=== PATIENT | female | born 1955 | race Caucasian/White ===

== ENCOUNTER 2019-11-25 10:20 | Outpatient (REF) | payer MEDICARE, SELFPAY ==
[2019-11-25 11:08] LABS: Alanine Aminotransferase 20 U/L (0-31); Alkaline Phosphatase 126 U/L (39-117); Anion Gap 12 (12-20); Aspartate Amino Transferase 16 U/L (5-31); Bilirubin Total 0.6 mg/dL (0.0-1.0); Blood Urea Nitrogen 15 mg/dL (9-16); Calcium 8.9 mg/dL (8.4-10.2); Carbon Dioxide 25 mmol/L (22-29); Chloride 109 mmol/L (96-108); Estimated Glomerular Filt Rate > 60; Glucose Random 198 mg/dL (60-115); Potassium 4.2 mmol/l (3.3-5.1); Sodium 142 mmol/L (135-145); Total Protein 6.3 g/dL (6.5-8.0)
== END 2019-11-25 10:21 | disposition home or self-care (01) ==
LOC: HO.LAB 10:20
PROVIDERS: PCP Internal Medicine; Visit Provider Physician Assistant
DX: I10 Essential (primary) hypertension (principal)
CPT/HCPCS: 80053

== ENCOUNTER 2019-11-26 08:46 | Outpatient (REF) | payer MEDICARE, SELFPAY ==
--- NOTE | 2019-11-26 08:56 | CT_ITS ---
EXAMINATION: CT CHEST WITH CONTRAST CLINICAL INFORMATION: Pulmonary nodules. COMPARISON: Previous chest x-ray June 2011 and abdominal and pelvic CT scan September 2018 and April 2009 TECHNIQUE: Multidetector volumetric CT imaging of the chest was obtained after the administration of 65 mL of Omnipaque 350 intravenous contrast without immediate adverse reactions. Axial MIP volume rendering provided. Sagittal and coronal reformatted images were obtained. This CT examination was performed using dose optimization techniques as appropriate, variously including the following: *Automated exposure control *Adjustment of mA and/or kV according to patient size (this includes techniques or standardized protocols for targeted exams where dose is matched to indication/reason for exam; i.e. extremities or head) *Use of iterative reconstruction technique DLP: 221 mGy-cm FINDINGS: LUNGS: There are innumerable small bilateral pulmonary nodules. The largest right pulmonary nodule is a 3 mm peripheral or subpleural nodule axial image 159 series 5. The left largest pulmonary nodule is a heterogeneous or semisolid left upper lobe nodule measuring 3 x 4 mm axial image 221 series 5. Nodules are greatest in the upper lobes. This may represent respiratory bronchiolitis related to smoking, hypersensitivity pneumonitis or infection. MEDIASTINUM: There are small mediastinal lymph nodes. No enlarged lymph nodes are seen. The heart does not appear enlarged. There is mild coronary artery calcification. There is no pericardial effusion. PLEURA: There is no pleural effusion. No pleural mass or thickening. AXILLA: No chest wall mass or enlarged axillary lymph nodes are seen. UPPER ABDOMEN: There are multiple small high attenuation or enhancing subcentimeter foci in the spleen. The largest measures 9 mm axial image 62 series 3. This appearance is somewhat atypical for heterogeneous splenic perfusion during arterial phase enhancement and is questionable for multiple focal lesions. No focal splenic lesion is appreciated on previous abdominal pelvic CT scan. OSSEOUS STRUCTURES: There are degenerative changes of the spine. IMPRESSION: Innumerable small pulmonary nodules or micronodules, largest measuring 3 x 4 mm in the left upper lobe. This may represent respiratory bronchiolitis related to smoking, hypersensitivity pneumonitis or infection. Small mediastinal lymph nodes. No enlarged lymph nodes seen. Mild coronary artery calcification. Question multiple small enhancing subcentimeter splenic lesions. Followup ultrasound of the spleen recommended.
== END 2019-11-26 08:47 | disposition home or self-care (01) ==
LOC: HO.CT 08:46
PROVIDERS: PCP Internal Medicine; Visit Provider Physician Assistant
DX: R91.1 Solitary pulmonary nodule (principal); Z12.2 Encounter for screening for malignant neoplasm of respiratory organs; Z72.0 Tobacco use
CPT/HCPCS: 71260

== ENCOUNTER 2019-12-13 13:08 | Outpatient (REF) | payer MEDICARE, SELFPAY ==
[2019-12-13 14:36] LABS: Anion Gap 13 (12-20); Blood Urea Nitrogen 14 mg/dL (9-16); Carbon Dioxide 29 mmol/L (22-29); Chloride 103 mmol/L (96-108); Estimated Glomerular Filt Rate > 60; Glucose Random 130 mg/dL (60-115); Potassium 4.2 mmol/l (3.3-5.1); Sodium 141 mmol/L (135-145)
== END 2019-12-13 13:09 | disposition home or self-care (01) ==
LOC: HO.LAB 13:08
PROVIDERS: PCP Internal Medicine; Visit Provider Nurse Practitioner Acute Care
DX: I10 Essential (primary) hypertension (principal)
CPT/HCPCS: 80048

== ENCOUNTER 2019-12-17 10:05 | Outpatient (REF) | payer MEDICARE, SELFPAY ==
--- NOTE | 2019-12-17 10:20 | US_ITS ---
EXAMINATION: US ABDOMEN COMPLETE CLINICAL INFORMATION: Splenic mass/lesion seen on CT chest dated 11/26/2019. COMPARISON: CT abdomen and pelvis without contrast dated 09/27/2018. Ultrasound abdomen complete dated 12/30/2005. TECHNIQUE: Real-time imaging of the abdominal viscera. FINDINGS: PANCREAS: Normal. ABDOMINAL AORTA: The proximal, mid, and distal segments are normal in caliber. INFERIOR VENA CAVA: Visualized portions are normal. LIVER: The liver is increased in echogenicity. The liver is normal in size. The liver contour is normal. No focal hepatic lesion or intrahepatic biliary duct dilatation seen. GALLBLADDER: There is a nonmobile echogenic area along the inner gallbladder wall suspicious for adenomyomatosis versus folded inner gallbladder wall. The gallbladder is physiologically distended. Multiple mobile gallstones are present. No evidence of gallbladder wall thickening or pericholecystic fluid. COMMON BILE DUCT: Normal in caliber measuring 0.4 cm in diameter. RIGHT KIDNEY: There are 2 anechoic cysts seen. A lower pole cyst measuring 2.7 x 3.1 x 2.8 cm and a midpole cyst measuring 1.8 x 1.7 x 1.8 cm. No hydronephrosis or renal calculi. The kidney measures 13.4 cm in maximum dimension. LEFT KIDNEY: There is an anechoic cyst in the midpole measuring 0.8 x 0.7 x 0.8 cm. No hydronephrosis or renal calculi. The kidney measures 11.0 cm in maximum dimension. SPLEEN: There are multiple hypoechoic lesions seen in the spleen; the largest one measuring 1.0 x 1.0 x 1.0 cm. A few high attenuation small lesions were seen in the spleen on the previous CT abdomen and pelvis exam. The spleen measures 10.9 cm in maximum dimension. FREE FLUID: None. US/US abdomen complete IMPRESSION: 1. Gallstones. Likely adenomyomatosis. 2. Two right renal cysts and a solitary cyst, left kidney. 3. A few hypoechoic lesions in the spleen. These correspond to hyperattenuating lesions in the spleen on recent CT.
== END 2019-12-17 10:06 | disposition home or self-care (01) ==
LOC: HO.US 10:05
PROVIDERS: PCP Internal Medicine; Visit Provider Physician Assistant
DX: D73.89 Other diseases of spleen (principal)
CPT/HCPCS: 76700

== ENCOUNTER 2020-05-13 13:20 | Outpatient (REF) | payer MEDICARE, SELFPAY ==
--- NOTE | ~2020-05-13 | US_ITS ---
EXAMINATION: US DIAGNOSTIC ULTRASOUND BREAST, RIGHT CLINICAL INFORMATION: Right breast lump. COMPARISON: Mammography of same day. TECHNIQUE: Ultrasound of the breast is performed with real-time henry scale imaging and color Doppler. FINDINGS: Targeted right breast ultrasound to the seventh to 10:00 position of the right breast did not demonstrate any abnormal cystic or solid masses. No region of abnormal distal sound shadowing appreciated. Results are discussed with the patient at time of visit. US/US breast RT limited IMPRESSION: There are no significant changes from prior study. No mammographic or ultrasound findings to suggest malignancy. ASSESSMENT: BI-RADS 2: Benign RECOMMENDATION: Routine annual mammography screening due in 12 months.
--- NOTE | ~2020-05-13 | MM_ITS ---
EXAMINATION: MM DIAGNOSTIC DIGITAL MAMMOGRAPHY, BILATERAL TARGETED RIGHT BREAST ULTRASOUND CLINICAL INFORMATION: Right breast pain and lump upper outer quadrant. The lifetime risk of breast cancer based on the Tyrer-Cuzick Model is 5.5%. COMPARISON: Mammography: 02/07/2019 and studies dating back to 05/13/2011. TECHNIQUE: Digital mammography is performed in craniocaudal and mediolateral oblique views along with computer-aided detection (CAD). Additional right breast craniocaudal and 90 degree mediolateral spot magnification views performed. Targeted right breast ultrasound. FINDINGS: There are scattered areas of fibroglandular density (ACR BI-RADS breast composition Category b). There is stable appearance of the left breast without new abnormal dominant mass or new suspicious grouping of microcalcifications. Within the right breast there are again noted to be some stable circumscribed densities one in the subareolar region containing some calcifications that layer on spot magnification 90 degree mediolateral view. There appears to be question of some calcifications on mediolateral oblique image only central aspect, however, spot magnification films do not demonstrate these to be persistent. Stable postsurgical change noted within the right breast. Targeted right breast ultrasound to the 7-10 o'clock position of the right breast did not demonstrate any abnormal cystic or solid masses. No region of abnormal distal sound shadowing appreciated. Results are discussed with the patient at time of visit. MM/MM tomosynthesis diagnostic BI IMPRESSION: There are no significant changes from prior study. No mammographic or ultrasound findings to suggest malignancy. ASSESSMENT: BI-RADS 2: Benign. RECOMMENDATION: Routine annual mammography screening due in 12 months. This patient's information was entered into a reminder system with a target due date for their next mammogram.
== END 2020-05-13 13:21 | disposition home or self-care (01) ==
LOC: HO.MAMMO 13:20
PROVIDERS: Visit Provider Internal Medicine
DX: N64.4 Mastodynia (principal); N63.11 Unspecified lump in the right breast, upper outer quadrant
CPT/HCPCS: 76642; 77062; 77066

== ENCOUNTER 2020-06-22 12:54 | Outpatient (REF) | payer MEDICARE, SELFPAY ==
[2020-06-22 13:33] LABS: MANUAL DIFF FLAG NO
[2020-06-22 13:53] LABS: Basophils Absolute Auto 0.1 X10*3/uL (0.0-0.2); Basophils Percent Auto 1.1 % (0-2); Eosinophils Absolute Auto 0.2 X10*3/uL (0.0-0.4); Eosinophils Percent Auto 2.2 % (0-4); Hematocrit 39.3 % (37-47); Hemoglobin 12.1 g/dl (12.0-16.0); Imm Gran Abs Auto 0.06 X10*3/uL (0.00-0.03); Imm Gran Pct Auto 0.7 % (0.0-0.4); Lymphocytes Percent Auto 23.3 % (20-40); Mean Corpuscular HGB Conc 30.8 g/dl (31.0-35.0); Mean Corpuscular Hemoglobin 28.1 pg (27.0-33.0); Mean Corpuscular Volume 91.4 fL (80-98); Mean Platelet Volume 10.9 fL (9.4-12.3); Monocytes Absolute Auto 0.5 X10*3/uL (0.1-1.2); Monocytes Percent Auto 6.3 % (2-11); Neutrophils Absolute Auto 5.7 X10*3/uL (2.0-8.3); Neutrophils Percent Auto 66.4 % (45-73); Platelet Count 289 X10*3/uL (160-400); Red Cell Distribution Width 13.4 % (11.0-16.0); White Blood Count 8.6 X10*3/uL (4.8-10.8)
[2020-06-22 13:54] LABS: Estimated Average Glucose 123 mg/dL; Hemoglobin A1c % 5.9 %
[2020-06-22 14:03] LABS: Alanine Aminotransferase 21 U/L (0-31); Albumin Level 4.1 g/dL (3.5-5.0); Alkaline Phosphatase 114 U/L (39-117); Anion Gap 14 (12-20); Aspartate Amino Transferase 18 U/L (5-31); Bilirubin Total 0.6 mg/dL (0.0-1.0); Blood Urea Nitrogen 14 mg/dL (9-16); Calcium 9.2 mg/dL (8.4-10.2); Carbon Dioxide 26 mmol/L (22-29); Chloride 104 mmol/L (96-108); Cholesterol 188 mg/dL; Estimated Glomerular Filt Rate > 60; Glucose Random 127 mg/dL (60-115); HDL Cholesterol 40 mg/dL; LDL Cholesterol Calculated 117 mg/dl; Potassium 4.4 mmol/L (3.3-5.1); Sodium 140 mmol/L (135-145); Total Protein 6.6 g/dL (6.5-8.0); Triglycerides 159 mg/dL
== END 2020-06-22 12:55 | disposition home or self-care (01) ==
LOC: HO.LAB 12:54
PROVIDERS: PCP Internal Medicine; Visit Provider Physician Assistant
DX: I10 Essential (primary) hypertension (principal); E78.00 Pure hypercholesterolemia, unspecified; R73.01 Impaired fasting glucose
CPT/HCPCS: 36415; 80053; 80061; 83036; 85025

== ENCOUNTER → 2020-07-03 10:56 | Outpatient (BNVA) | payer MEDICARE, SELFPAY | PROVIDERS: PCP Internal Medicine; Visit Provider Physician Assistant | DX: S92.352A Displaced fracture of fifth metatarsal bone, left foot, initial encounter for closed fracture (principal); M18.12 Unilateral primary osteoarthritis of first carpometacarpal joint, left hand | CPT/HCPCS: 99202 ==

== ENCOUNTER 2020-08-03 08:00 | Outpatient (REF) | payer MEDICARE, SELFPAY ==
--- NOTE | ~2020-08-03 | XR_ITS ---
EXAMINATION: XR FOOT, LEFT CLINICAL INFORMATION: Follow-up fracture 5th metatarsal. COMPARISON: None. TECHNIQUE: AP, lateral, and oblique views of the left foot. FINDINGS: There is old fracture base of 5th metatarsal. No additional fractures seen. The ankle mortise and subtalar joints are normal. XR/XR foot LT min 3V IMPRESSION: Old nondisplaced fracture base of 5th metatarsal. No acute new fracture seen.
== END 2020-08-03 08:01 | disposition home or self-care (01) ==
LOC: HO.HOSX 08:00
PROVIDERS: Visit Provider Physician Assistant
DX: S92.352A Displaced fracture of fifth metatarsal bone, left foot, initial encounter for closed fracture (principal)
CPT/HCPCS: 73630; 99212

== ENCOUNTER 2020-12-01 11:24 | Outpatient (REF) | payer MEDICARE, SELFPAY ==
[2020-12-01 12:42] LABS: MANUAL DIFF FLAG NO
[2020-12-01 12:57] LABS: Basophils Absolute Auto 0.1 X10*3/uL (0.0-0.2); Basophils Percent Auto 0.9 % (0-2); Eosinophils Absolute Auto 0.2 X10*3/uL (0.0-0.4); Hematocrit 37.6 % (37-47); Hemoglobin 11.7 g/dl (12.0-16.0); Imm Gran Abs Auto 0.04 X10*3/uL (0.00-0.03); Imm Gran Pct Auto 0.6 % (0.0-0.4); Lymphocytes Absolute Auto 1.7 X10*3/uL (1.2-4.9); Lymphocytes Percent Auto 25.7 % (20-40); Mean Corpuscular HGB Conc 31.1 g/dl (31.0-35.0); Mean Corpuscular Hemoglobin 27.3 pg (27.0-33.0); Mean Corpuscular Volume 87.6 fL (80-98); Monocytes Absolute Auto 0.4 X10*3/uL (0.1-1.2); Monocytes Percent Auto 5.3 % (2-11); Neutrophils Absolute Auto 4.4 X10*3/uL (2.0-8.3); Neutrophils Percent Auto 64.5 % (45-73); Platelet Count 308 X10*3/uL (160-400); Red Blood Count 4.29 X10*6/uL (4.20-5.50); White Blood Count 6.8 X10*3/uL (4.8-10.8)
[2020-12-01 13:13] LABS: Alanine Aminotransferase 17 U/L (0-31); Albumin Level 4.1 g/dL (3.5-5.0); Alkaline Phosphatase 121 U/L (39-117); Anion Gap 15 (12-20); Aspartate Amino Transferase 16 U/L (5-31); Bilirubin Total 0.6 mg/dL (0.0-1.0); Blood Urea Nitrogen 13 mg/dL (9-16); Calcium 8.9 mg/dL (8.4-10.2); Carbon Dioxide 24 mmol/L (22-29); Chloride 106 mmol/L (96-108); Cholesterol 167 mg/dL; Estimated Average Glucose 120 mg/dL; Estimated Glomerular Filt Rate > 60; Glucose Fasting 130 mg/dL (60-99); HDL Cholesterol 34 mg/dL; Hemoglobin A1c % 5.8 %; LDL Cholesterol Calculated 98 mg/dl; Potassium 3.9 mmol/L (3.3-5.1); Sodium 141 mmol/L (135-145); Total Protein 6.6 g/dL (6.5-8.0); Triglycerides 175 mg/dL
[2020-12-01 13:34] LABS: Free T4 (Free Thyroxine) 0.95 ng/dL (0.71-1.85); Thyroid Stimulating Hormone 1.19 uIU/mL (0.32-4.0)
== END 2020-12-01 11:25 | disposition home or self-care (01) ==
LOC: HO.MANLDS 11:24
PROVIDERS: PCP Physician Assistant; Visit Provider Physician Assistant
DX: Z00.00 Encounter for general adult medical examination without abnormal findings (principal); R63.5 Abnormal weight gain
CPT/HCPCS: 36415; 80053; 80061; 83036; 84439; 84443; 85025

== ENCOUNTER 2020-12-22 07:26 | Outpatient (REF) | payer MEDICARE, SELFPAY ==
--- NOTE | ~2020-12-22 | XR_ITS ---
EXAMINATION: XR KNEE, RIGHT XR KNEE STANDING BILATERAL CLINICAL INFORMATION: Knee pain COMPARISON: None TECHNIQUE: AP standing view both knees Right knee, sunrise and lateral views FINDINGS: AP STANDING VIEW BOTH KNEES At the right knee, there is mild narrowing of medial tibiofemoral joint space and osteophytes at noted at the medial and lateral tibiofemoral compartments. At the left knee, there is mild narrowing of medial tibiofemoral joint space and osteophyte formation. RIGHT KNEE, SUNRISE AND LATERAL VIEWS Patella is well-positioned in the trochlear groove. There are marginal osteophytes of the mildly degenerated patellofemoral compartment. No knee joint effusion. XR/XR knee RT 2V IMPRESSION: * Mild tricompartmental osteoarthritis of the right knee. * Mild osteoarthritis of the medial tibiofemoral compartment of the left knee.
--- NOTE | ~2020-12-22 | XR_ITS ---
EXAMINATION: XR KNEE, RIGHT XR KNEE STANDING BILATERAL CLINICAL INFORMATION: Knee pain COMPARISON: None TECHNIQUE: AP standing view both knees Right knee, sunrise and lateral views FINDINGS: AP STANDING VIEW BOTH KNEES At the right knee, there is mild narrowing of medial tibiofemoral joint space and osteophytes at noted at the medial and lateral tibiofemoral compartments. At the left knee, there is mild narrowing of medial tibiofemoral joint space and osteophyte formation. RIGHT KNEE, SUNRISE AND LATERAL VIEWS Patella is well-positioned in the trochlear groove. There are marginal osteophytes of the mildly degenerated patellofemoral compartment. No knee joint effusion. XR/XR knee standing BI IMPRESSION: * Mild tricompartmental osteoarthritis of the right knee. * Mild osteoarthritis of the medial tibiofemoral compartment of the left knee.
== END 2020-12-22 07:27 | disposition home or self-care (01) ==
LOC: HO.HOSX 07:26
PROVIDERS: Visit Provider Physician Assistant
DX: M17.11 Unilateral primary osteoarthritis, right knee (principal)
CPT/HCPCS: 73560; 73565; 99212

== ENCOUNTER 2020-12-29 13:26 | Outpatient (REF) | payer MEDICARE, SELFPAY ==
--- NOTE | ~2020-12-29 | CT_ITS ---
EXAMINATION: CT CHEST WITHOUT CONTRAST CLINICAL INFORMATION: Pulmonary nodules. Follow-up. COMPARISON: CT chest with contrast 11/26/2019 TECHNIQUE: Multidetector volumetric CT imaging of the chest was done. Axial MIP volume rendering provided. Sagittal and coronal reformatted images were obtained. This CT examination was performed using dose optimization techniques as appropriate, variously including the following: *Automated exposure control *Adjustment of mA and/or kV according to patient size (this includes techniques or standardized protocols for targeted exams where dose is matched to indication/reason for exam; i.e. extremities or head) *Use of iterative reconstruction technique DLP: 263 mGy-cm FINDINGS: NCR OPERATOR: Well expanded lungs without acute process. LUNGS: The lungs are well expanded with numerous bilateral small pulmonary nodules. Largest subpleural nodule right upper lobe measures 3 mm axial image 81/5, largest left upper lobe subpleural nodule measures 2 mm axial image 139/5. These nodules are stable. A 3 mm nodule seen in the left major fissure axial image 226/5 likely intrafissural lymph node, stable. Focal atelectatic changes are seen in the right middle lobe. MEDIASTINUM: The left thyroid lobe is larger than the right. The central trachea and the bronchi are widely patent. There is atherosclerotic calcification of the thoracic arch. There are multiple small precarinal lymph nodes. Heart size and the great vessels are normal caliber. There is no pericardial effusion. PLEURA: There is no pleural effusion. No pleural mass or thickening. AXILLA: There are small shotty lymph nodes in the axilla. The chest wall is unremarkable. UPPER ABDOMEN: Visualized liver, spleen, pancreas, and bilateral adrenal glands are unremarkable. OSSEOUS STRUCTURES: There is no lytic or sclerotic process. There is mild spondylosis throughout the dorsal spine. CT/CT chest wo con IMPRESSION: Bilateral pulmonary nodules are stable. No new nodules seen. Stable small mediastinal and shotty bilateral axillary lymph nodes. Previously seen enhancing splenic lesions are not visualized on this noncontrast study.
== END 2020-12-29 13:27 | disposition home or self-care (01) ==
LOC: HO.CT 13:26
PROVIDERS: PCP Physician Assistant; Visit Provider Physician Assistant
DX: R91.8 Other nonspecific abnormal finding of lung field (principal)
CPT/HCPCS: 71250

== ENCOUNTER 2021-05-25 11:14 | Outpatient (REF) | payer MEDICARE, SELFPAY ==
--- NOTE | ~2021-05-25 | MM_ITS ---
EXAMINATION: MM SCREENING DIGITAL BREAST TOMOSYNTHESIS, BILATERAL CLINICAL INFORMATION: Screening. Asymptomatic. The lifetime risk of breast cancer based on the Tyrer-Cuzick Model is 5%. COMPARISON: Mammography: 05/13/2020, 02/07/2019, 12/27/2017 TECHNIQUE: Digital breast tomosynthesis is performed in both the craniocaudal and mediolateral oblique views along with computer-aided detection (CAD). Synthesized 2D images are generated from the tomosynthesis. Additional bilateral MLO views are provided. FINDINGS: There are scattered areas of fibroglandular density (ACR BI-RADS breast composition Category b). There are no significant masses, abnormal calcifications, or other abnormalities. There is fine fibronodular parenchymal pattern similar to prior exams. No developing density. No significant changes. MM/MM tomosynthesis screening BI IMPRESSION: No mammographic evidence of malignancy. ASSESSMENT: BI-RADS 2: Benign RECOMMENDATION: Routine annual mammography screening. This patient's information was entered into a reminder system with a target due date for their next mammogram.
== END 2021-05-25 11:15 | disposition home or self-care (01) ==
LOC: HO.MAMMO 11:14
PROVIDERS: PCP Internal Medicine; Visit Provider Physician Assistant
DX: Z12.31 Encounter for screening mammogram for malignant neoplasm of breast (principal)
CPT/HCPCS: 77063; 77067

== ENCOUNTER 2021-12-13 13:20 | Outpatient (REF) | payer MEDICARE, SELFPAY ==
--- NOTE | ~2021-12-13 | CT_ITS ---
EXAMINATION: CT CHEST WITHOUT CONTRAST CLINICAL INFORMATION: Smoking history. Follow-up pulmonary nodules. COMPARISON: Previous chest CT most recent December 2020 TECHNIQUE: Multidetector volumetric CT imaging of the chest was done. Axial MIP volume rendering provided. Sagittal and coronal reformatted images were obtained. This CT examination was performed using dose optimization techniques as appropriate, variously including the following: *Automated exposure control *Adjustment of mA and/or kV according to patient size (this includes techniques or standardized protocols for targeted exams where dose is matched to indication/reason for exam; i.e. extremities or head) *Use of iterative reconstruction technique DLP: 282 mGy-cm FINDINGS: LUNGS: The small pulmonary nodules are stable. Largest pulmonary nodule is a 3 mm left upper lobe pulmonary nodule axial image 200 series 7. No new pulmonary nodule. No endobronchial or endotracheal lesion. MEDIASTINUM: The mediastinum is normal. CORONARY ARTERY CALCIFICATION: Mild coronary artery calcification. Atherosclerotic disease of the thoracic aorta with calcification. The thoracic aorta is normal in caliber. PLEURA: There is no pleural effusion. No pleural mass or thickening. AXILLA: No lymphadenopathy. UPPER ABDOMEN: Unremarkable. OSSEOUS STRUCTURES: Degenerative changes of the spine. CT/CT chest wo IV con IMPRESSION: Stable small pulmonary nodules. Mild coronary artery calcification. Fleischner guidelines were followed.
== END 2021-12-13 13:21 | disposition home or self-care (01) ==
LOC: HO.CT 13:20
PROVIDERS: PCP Internal Medicine; Visit Provider Physician Assistant
DX: R91.1 Solitary pulmonary nodule (principal); Z87.891 Personal history of nicotine dependence
CPT/HCPCS: 71250

== ENCOUNTER 2022-06-07 13:35 | Outpatient (REF) | payer MEDICARE, SELFPAY ==
--- NOTE | ~2022-06-07 | MM_ITS ---
EXAMINATION: MM SCREENING DIGITAL BREAST TOMOSYNTHESIS, BILATERAL CLINICAL INFORMATION: Screening. Asymptomatic. The lifetime risk of breast cancer based on the Tyrer-Cuzick Model is 5%. COMPARISON: Mammography: May 25, 2021 and studies dating back to November 02, 2015 TECHNIQUE: Digital breast tomosynthesis is performed in both the craniocaudal and mediolateral oblique views along with computer-aided detection (CAD). Synthesized 2D images are generated from the tomosynthesis. FINDINGS: There are scattered areas of fibroglandular density (ACR BI-RADS breast composition Category b). There are no new significant masses, abnormal calcifications, or other abnormalities. Right breast calcifications again seen as well as circumscribed density about the superior lateral aspect. MM/MM tomosynthesis screening BI IMPRESSION: No significant changes from prior exam. ASSESSMENT: BI-RADS 2: Benign RECOMMENDATION: Routine annual mammography screening. This patient's information was entered into a reminder system with a target due date for their next mammogram.
== END 2022-06-07 13:36 | disposition home or self-care (01) ==
LOC: HO.MAMMO 13:35
PROVIDERS: PCP Internal Medicine; Visit Provider Physician Assistant
DX: Z12.31 Encounter for screening mammogram for malignant neoplasm of breast (principal)
CPT/HCPCS: 77063; 77067

== ENCOUNTER 2022-06-23 14:21 | Observation (INO) | payer MEDICARE, SELFPAY ==
[2022-06-23] VITALS (10 sets, daily range): BP systolic 98–140; BP diastolic 40–63; PULSE 58–72; RESP 14–20; TEMP 35.8–37.7; O2SAT 96–99; BMI 37.5; BMI 37.7
--- NOTE | ~2022-06-23 | XR_ITS ---
EXAMINATION: XR CHEST CLINICAL INFORMATION: Shortness of breath COMPARISON: 07/09/2011 TECHNIQUE: 2 views of the chest were obtained. FINDINGS: Some mild left mid to lower lung opacity and mild left mid to lower lung right opacity compared to previous. These could be subtle areas of infiltrate. There is no failure here. There is no effusion. There is some mild cephalization of the vasculature but the cardiac silhouette does not appear enlarged. Hilar structures are slightly more prominent than previous. There is no effusion or pneumothorax. XR/XR chest 2V IMPRESSION: Some mild bilateral mid to lower lung opacities could represent areas of early infiltrate. Trace effusions cannot be excluded. Cardiac silhouette is not appear pathologically enlarged but is slightly more prominent than previous. This could be due to projection. The hilar structures are also mildly prominent. This could be reactive. I would recommend follow-up study. No evidence for failure
--- NOTE | ~2022-06-23 | CT_ITS ---
EXAMINATION: CT CHEST WITHOUT CONTRAST CLINICAL INFORMATION: Follow-up abnormal chest x-ray. Prominent usha and bilateral lower lung opacities. COMPARISON: Previous chest x-ray from yesterday and chest CT most recent November 2021 TECHNIQUE: Multidetector volumetric CT imaging of the chest was done. Axial MIP volume rendering provided. Sagittal and coronal reformatted images were obtained. This CT examination was performed using dose optimization techniques as appropriate, variously including the following: *Automated exposure control *Adjustment of mA and/or kV according to patient size (this includes techniques or standardized protocols for targeted exams where dose is matched to indication/reason for exam; i.e. extremities or head) *Use of iterative reconstruction technique DLP: 281 mGy-cm FINDINGS: TRAINING AND QUALITY MANAGER: Unremarkable LUNGS: The small bilateral predominantly upper lobe pulmonary nodules are stable. Largest nodules measure 3 mm. The lungs are otherwise clear. No evidence of pneumonia. MEDIASTINUM: Atherosclerotic disease. Normal heart size. Normal caliber thoracic aorta. Normal caliber pulmonary arteries. Small mediastinal lymph nodes. No enlarged lymph nodes. No pericardial effusion. CORONARY ARTERY CALCIFICATION: Mild PLEURA: There is no pleural effusion. No pleural mass or thickening. AXILLA: No lymphadenopathy. UPPER ABDOMEN: Excreted contrast in the collecting systems of the kidneys. Precontrast and gallbladder. OSSEOUS STRUCTURES: Degenerative changes of the spine. CT/CT chest wo IV con IMPRESSION: No evidence for acute disease in the chest. Stable small pulmonary nodules. Fleischner guidelines were followed.
--- NOTE | ~2022-06-23 | CT_ITS ---
EXAMINATION: CT ABDOMEN AND PELVIS WITH CONTRAST CLINICAL INFORMATION: Microcytic anemia and weight loss.. COMPARISON: None available. TECHNIQUE: Multidetector volumetric images were obtained from the superior aspect of the liver through the pubic symphysis following administration 85 mL of Omnipaque 350 intravenous contrast. Sagittal and coronal reformatted images were obtained on the technologist's workstation. Oral contrast: No This CT examination was performed using dose optimization techniques as appropriate, variously including the following: *Automated exposure control *Adjustment of mA and/or kV according to patient size (this includes techniques or standardized protocols for targeted exams where dose is matched to indication/reason for exam; i.e. extremities or head) *Use of iterative reconstruction technique DLP: 986 mGy-cm FINDINGS: LUNG BASES: The lung bases are clear. The heart size is normal. There is a small hiatal hernia. LIVER, GALLBLADDER, AND BILIARY TREE: The liver is normal in size, shape, and attenuation. No focal hepatic lesion or biliary ductal dilatation is present. There are small radiopaque gallstones without wall thickening. PANCREAS: Unremarkable. SPLEEN: Unremarkable. ADRENAL GLANDS: Unremarkable. KIDNEYS AND URETERS: The kidneys are normal in size, shape, and attenuation. No hydronephrosis, hydroureter, or calculi seen. No perinephric stranding. There is a small hypodense cyst lower pole right kidney measuring 3.3 x 2.9 cm. There are bilateral extrarenal kidney pelvises. BLADDER: Unremarkable. GASTROINTESTINAL TRACT: There is moderate scattered stool, diverticula and gas seen in colon without distention. The small bowel loops are normal caliber. Appendix is normal caliber. No free air or free fluid seen. ABDOMINAL WALL: No significant hernia is appreciated. LYMPH NODES: Normal. VASCULAR: Unremarkable. PELVIC VISCERA: The uterus is anteverted and appears unremarkable. There is no adnexal mass or free fluid. No abnormal pelvic or inguinal lymph nodes. OSSEOUS STRUCTURES: Mild degenerative disc changes L5-S1 disc level. No aggressive lytic or sclerotic process seen. CT/CT abdomen pelvis w IV con IMPRESSION: 1. No acute intra-abdominal process seen. 2. Cholelithiasis without wall thickening. 3. Colonic diverticulosis without diverticulitis. 4. Small hiatal hernia. Fleischner guidelines were followed.
--- NOTE | 2022-06-23 14:35 | ED.GENADULT ---
HPI - General Adult General Chief complaint: Recheck/Abnormal Lab/Rx Stated complaint: blood transfusion Time Seen by Provider: 06/23/22 15:00 Source: patient and family (Life partner, Ed) Mode of arrival: ambulatory Limitations: no limitations History of Present Illness HPI narrative: 67-year-old female who was sent to emergency department by her PCP (Dr. Houston) for evaluation of a low H&H (6.9 and 25.5). The patient states that she has been feeling short of breath for 1 year. She states the symptoms have gotten worse over the past month. She states the shortness of breath is worse with exertion and she feels weak and fatigued. The patient states that she has also been getting frequent chest pain over the past month. She gets chest pain every 2-3 days. Her last episode was yesterday afternoon at 15:00 with onset while she was sitting. The pain came on gradually. She described as a sternal pressure pain with no radiation. She had associated nausea. The pain lasted 15 minutes and then resolved. The patient does have a history of atrial fibrillation and is on Xarelto. She also states she has GERD and has been having increased GERD symptoms. She states that she has been taking an [id number] supplement to lose weight and she has lost 28 lb (1-2 lb per month)-in she believes this weight loss is intentional. She denied night sweats. She has not noticed any dark tarry stools, red stools or bloody stools. Related Data Home Medications Medication Instructions Recorded Confirmed amlodipine 10 mg tablet 10 mg PO DAILY 07/03/20 aspirin 81 mg tablet,delayed 81 mg PO DAILY 07/03/20 release (Adult Aspirin Regimen) hydrochlorothiazide 12.5 mg tablet 12.5 mg PO DAILY 07/03/20 lisinopril 40 mg tablet 40 mg PO DAILY 07/03/20 lorazepam 1 mg tablet 1 mg PO DAILY PRN 07/03/20 lovastatin 20 mg tablet 20 mg PO DAILY 07/03/20 mecobalamin (vitamin B12) 1,000 1,000 mcg PO DAILY 07/03/20 mcg chewable tablet omeprazole 20 mg capsule,delayed 20 mg PO DAILY 07/03/20 release sertraline 50 mg tablet 50 mg PO DAILY 07/03/20 Allergies Allergy/AdvReac Type Severity Reaction Status Date / Time No Known Allergies Allergy Unverified 07/03/20 11:08 [No Known Allergies*] oxycodone AdvReac Unknown itching Uncoded 07/03/20 11:08 Review of Systems Review of Systems: Yes all other systems are reviewed and are negative [facility] Past Medical History [facility] Narrative: Past medical history: Reviewed below. Patient does have atrial fibrillation and is on Xarelto. Social history: Patient is a former smoker, she stop smoking 12 years prior but states she smoked for more than 40 years. She drinks alcohol once a month and when she drinks she drinks at least 6 beers. She does use edible marijuana products. Medical History Acid reflux Anxiety Arthritis High cholesterol HTN (hypertension) Osteoporosis Surgical History H/O hernia repair H/O right breast biopsy History of tubal ligation Social History Social History Alcohol intake: current Alcohol intake frequency: holidays/special occasions only Years Smoked: quit 10 years ago Smoked in Last 30 Days: No Use of substances other than those prescribed or required for medical reasons: Yes Substance Use Type: Marijuana Substance Use Frequency: Daily Any prior treatment program specific to substance use: No Advance Directives: Yes Advance Directives Information Provided: No Advance Directives on File: No Current occupational status: retired Current occupation: right handed Physical Exam ED Vital Signs: Vital Signs - 24 hr 06/23/22 14:35 06/23/22 15:56 06/23/22 16:19 Temperature 96.4 F L 100 F 99.9 F Pulse Rate 62 59 62 Respiratory Rate 18 15 14 Blood Pressure 102/43 L 122/54 L 122/54 L Pulse Oximetry 97 99 Oxygen Delivery Method Room Air Room Air 06/23/22 16:36 Temperature 99.8 F Pulse Rate 62 Respiratory Rate 15 Blood Pressure 116/51 L Pulse Oximetry Oxygen Delivery Method BMI result Body Mass Index 37.5 Const Other: Awake, alert, female patient, very pleasant and cooperative, does not appear to be in distress, answers all questions appropriately-elevated BMI 37.5. HENIL Head: Yes normal to inspection, Yes normocephalic and Yes atraumatic Ears: external ears normal General nose exam: Normal external nose present Face and sinus: Yes normal facial exam Mouth: Normal oral and palatal mucosa present Throat: Yes posterior oropharynx normal Eyes General: appearance normal, both eyes and all related structures Pupils: Equal, round and reactive pupils present Neck Neck: Yes normal visual inspection, Yes no lymphadenopathy, Yes trachea midline and Yes supple Chest Chest palpation & inspection: normal inspection of the chest and normal palpation of entire chest wall Resp Effort & Inspection: normal respiratory effort and able to speak in complete sentences Auscultation: clear to auscultation bilaterally Cardio Rate: regular rate Rhythm: regular rhythm Heart sounds: S1 normal heart sound present, S2 normal heart sound present and no murmurs GI Inspection: Yes normal to inspection Palpation (GI): Soft to palpation, nontender and no guarding Auscultation: normal bowel sounds Rectal Exam - Female: visual inspection normal, normal sphincter tone and heme negative stool (Stool was loose brown and Hemoccult negative) General: Yes no CVA tenderness Back/Spine/Pelvis Back: no CVA tenderness Skin General skin exam: no rashes or lesions noted Neuro Cranial nerves: Yes CN's II-XII intact bilaterally and Yes Equal, round and reactive pupils present Cognition (Neuro): normal cognition Motor exam (neuro): 5/5 motor strength present throughout Extrem General: Yes normal to inspection Psych Appearance: grossly normal Speech and movement: Normal speech and movement present Affect: normal affect Attitude: cooperative Course Course Course Narrative: This is an RME: Additional HPI, ROS, PE not included below will be deferred to primary provider. 67 year old female presents from cardiology regarding low hemoglobin 6.9 and Hct 25.5. On Nov 2020 Hg 11.7 Hct 37.6. Patient reports she is weak, fatigued, and SOB. Patient reports she is SOB with walking short distances. Patient is currently taking xarelto. Denies melena or hematochezia. PE: Patient appears pale Plan: Labs, OBS Medical Decision Making Medical Decision Making MDM Narrative: 67-year-old female who presents emergency department for evaluation of shortness of breath times years but worse over the past month, intermittent chest pain every 2-3 days with last episode yesterday at 15:00 hours and for evaluation of anemia with an H&H of 6.9 and 25.59 found by the patient's PCP for workup of her shortness of breath. Patient's physical examination was unremarkable. She had no abdominal tenderness. Rectal exam did reveal loose brown stool which was Hemoccult negative. Provider at triage ordered CBC, CMP, PT/INR, type and screen, 2 units of packed red blood cells to be transfused. I added an EKG and troponin based on her presentation of chest pain. 1540: My interpretation patient's laboratory evaluation is as follows: Microcytic anemia with an H&H of 6.7 and 23.7, MCV was 71.4. Elevated potassium 5.3. Elevated chloride 111. Elevated BUN 20. Elevated glucose 135. Elevated total protein of 6.3 with a normal albumin of 4.0. BNP elevated 118. Given her microcytic anemia, her substernal chest pain, her reported intentional weight loss and the fact that she is on Xarelto, believe the patient should be admitted for further diagnostic workup of her anemia and for evaluation of her chest pain. I will add a CT scan of the abdomen pelvis with IV contrast looking for malignancy as the cause of her anemia. I will discuss admission with the covering hospitalist. 1753: Patient's 12 EKG was unremarkable. First high sensitive troponin I was detectable but not elevated at 3.0. Chest x-ray concerning for mild CHF. Patient will need to be observed between transfusions and may require Lasix. Patient has not received her CT scan since she is getting a blood transfusion which I think is more important this time. CT scan will be done after the transfusion is completed. I will discuss admission with the covering hospitalist. Differential Diagnosis Differential diagnosis includes but is GI bleed, GI malignancy, bleeding caused by Xarelto, coronary artery disease, anemia, electrolyte abnormalities, Admission/Observation Consideration of admission/observation: Escalation of care including admission/observation considered Consult Healthcare Provider Management of the patient was discussed with: Hospitalist (Dr. Dupont) Lab Data MDM Lab Attestation statement: I reviewed the patient's lab results. 06/23/22 14:47 06/23/22 14:47 Labs: Lab Results 06/23/22 06/23/22 06/23/22 Range/Units 14:47 14:47 14:47 WBC 9.7 (4.8-10.8) X10*3/uL RBC 3.32 L (4.20-5.50) X10*6/uL Hgb 6.7 L* (12.0-16.0) g/dl Hct 23.7 L (37.0-47.0) % MCV 71.4 L (80.0-98.0) fL MCH 20.2 L (27.0-33.0) pg MCHC 28.3 L (31.0-35.0) g/dl RDW 16.2 H (11.0-16.0) % Plt Count 390 (160-400) X10*3/uL MPV 10.2 (9.4-12.3) fL Immature Gran % (Auto) 0.4 (0.0-0.4) % Neut % (Auto) 75.3 H (45-73) % Lymph % (Auto) 15.3 L (20-40) % [place] % (Auto) 6.4 (2-11) % Eos % (Auto) 1.6 (0-4) % Baso % (Auto) 1.0 (0-2) % Lymph # (Auto) 1.5 (1.2-4.9) X10*3/uL [place] # (Auto) 0.6 (0.1-1.2) X10*3/uL Eos # (Auto) 0.2 (0.0-0.4) X10*3/uL Baso # (Auto) 0.1 (0.0-0.2) X10*3/uL Abs Immat Gran (auto) 0.04 H (0.00-0.03) X10*3/uL Absolute Neuts (auto) 7.3 (2.0-8.3) x10*3/uL Absolute Nucleated RBC 0.000 (0.0-0.012) X10*3/uL Nucleated RBC % (auto) 0.0 (0.0-0.2) /100WBC PT (10.0-13.1) SEC INR (0.9-1.1) Sodium 142 (135-145) mmol/L Potassium 5.3 H D (3.3-5.1) mmol/L Chloride 111 H (96-108) mmol/L Carbon Dioxide 24 (22-29) mmol/L Anion Gap 12 (12-20) BUN 20 H (9-16) mg/dL Creatinine 1.11 (0.5-1.4) mg/dL Estim Creat Clear Calc 59.5 Estimated GFR 49 Random Glucose 135 H (60-115) mg/dL Calcium 9.3 (8.4-10.2) mg/dL Total Bilirubin 0.5 (0.0-1.0) mg/dL AST 12 (5-31) U/L ALT 11 (0-31) U/L Alkaline Phosphatase 100 (39-117) U/L Troponin I High Sens (<3.5-17.0) ng/L B-Natriuretic Peptide (<100) pg/mL Total Protein 6.3 L (6.5-8.0) g/dL Albumin 4.0 (3.5-5.0) g/dL Stool Occult Blood (NEGATIVE) Blood Type O Positive Antibody Screen NEGATIVE Crossmatch See Detail 06/23/22 06/23/22 06/23/22 Range/Units 14:47 14:47 15:27 WBC (4.8-10.8) X10*3/uL RBC (4.20-5.50) X10*6/uL Hgb (12.0-16.0) g/dl Hct (37.0-47.0) % MCV (80.0-98.0) fL MCH (27.0-33.0) pg MCHC (31.0-35.0) g/dl RDW (11.0-16.0) % Plt Count (160-400) X10*3/uL MPV (9.4-12.3) fL Immature Gran % (Auto) (0.0-0.4) % Neut % (Auto) (45-73) % Lymph % (Auto) (20-40) % [place] % (Auto) (2-11) % Eos % (Auto) (0-4) % Baso % (Auto) (0-2) % Lymph # (Auto) (1.2-4.9) X10*3/uL [place] # (Auto) (0.1-1.2) X10*3/uL Eos # (Auto) (0.0-0.4) X10*3/uL Baso # (Auto) (0.0-0.2) X10*3/uL Abs Immat Gran (auto) (0.00-0.03) X10*3/uL Absolute Neuts (auto) (2.0-8.3) x10*3/uL Absolute Nucleated RBC (0.0-0.012) X10*3/uL Nucleated RBC % (auto) (0.0-0.2) /100WBC PT 17.3 H (10.0-13.1) SEC INR 1.5 H (0.9-1.1) Sodium (135-145) mmol/L Potassium (3.3-5.1) mmol/L Chloride (96-108) mmol/L Carbon Dioxide (22-29) mmol/L Anion Gap (12-20) BUN (9-16) mg/dL Creatinine (0.5-1.4) mg/dL Estim Creat Clear Calc Estimated GFR Random Glucose (60-115) mg/dL Calcium (8.4-10.2) mg/dL Total Bilirubin (0.0-1.0) mg/dL AST (5-31) U/L ALT (0-31) U/L Alkaline Phosphatase (39-117) U/L Troponin I High Sens (<3.5-17.0) ng/L B-Natriuretic Peptide 118 H (<100) pg/mL Total Protein (6.5-8.0) g/dL Albumin (3.5-5.0) g/dL Stool Occult Blood NEGATIVE (NEGATIVE) Blood Type Antibody Screen Crossmatch 06/23/22 Range/Units 15:40 WBC (4.8-10.8) X10*3/uL RBC (4.20-5.50) X10*6/uL Hgb (12.0-16.0) g/dl Hct (37.0-47.0) % MCV (80.0-98.0) fL MCH (27.0-33.0) pg MCHC (31.0-35.0) g/dl RDW (11.0-16.0) % Plt Count (160-400) X10*3/uL MPV (9.4-12.3) fL Immature Gran % (Auto) (0.0-0.4) % Neut % (Auto) (45-73) % Lymph % (Auto) (20-40) % [place] % (Auto) (2-11) % Eos % (Auto) (0-4) % Baso % (Auto) (0-2) % Lymph # (Auto) (1.2-4.9) X10*3/uL [place] # (Auto) (0.1-1.2) X10*3/uL Eos # (Auto) (0.0-0.4) X10*3/uL Baso # (Auto) (0.0-0.2) X10*3/uL Abs Immat Gran (auto) (0.00-0.03) X10*3/uL Absolute Neuts (auto) (2.0-8.3) x10*3/uL Absolute Nucleated RBC (0.0-0.012) X10*3/uL Nucleated RBC % (auto) (0.0-0.2) /100WBC PT (10.0-13.1) SEC INR (0.9-1.1) Sodium (135-145) mmol/L Potassium (3.3-5.1) mmol/L Chloride (96-108) mmol/L Carbon Dioxide (22-29) mmol/L Anion Gap (12-20) BUN (9-16) mg/dL Creatinine (0.5-1.4) mg/dL Estim Creat Clear Calc Estimated GFR Random Glucose (60-115) mg/dL Calcium (8.4-10.2) mg/dL Total Bilirubin (0.0-1.0) mg/dL AST (5-31) U/L ALT (0-31) U/L Alkaline Phosphatase (39-117) U/L Troponin I High Sens 3.0 (<3.5-17.0) ng/L B-Natriuretic Peptide (<100) pg/mL Total Protein (6.5-8.0) g/dL Albumin (3.5-5.0) g/dL Stool Occult Blood (NEGATIVE) Blood Type Antibody Screen Crossmatch Independent Interpretation I performed an independent interpretation of an: EKG and Plain X-Ray Interpretation: My independent interpretation patient's 12 EKG done at 16:01 is as follows: Sinus bradycardia with rate of 54, normal DC interval, QRS duration QTC interval, no ST segment elevation, no ST segment depression, no PACs, no PVCs, no T-wave abnormalities. My independent interpretation of the patient's chest x-ray is as follows: Increased interstitial infiltrates, mild CHF. Radiology Impression Discussion of test interpretation with radiology: I have reviewed the radiologist's reading. Radiologist Impression: XR chest 2V IMPRESSION: Some mild bilateral mid to lower lung opacities could represent areas of early infiltrate. Trace effusions cannot be excluded. Cardiac silhouette is not appear pathologically enlarged but is slightly more prominent than previous. This could be due to projection. The hilar structures are also mildly prominent. This could be reactive. I would recommend follow-up study. No evidence for failure Dictated By:Vicente Morgan MD Independent Historian Clinical information obtained from an independent historian. History obtained from or confirmed by: Spouse Chronic Conditions Patient?s care impacted by: Hypertension and Other (Hyperlipidemia) Discharge Plan Discharge Prescriptions: No Action omeprazole 20 mg capsule,delayed release(DR/EC) 20 mg PO DAILY sertraline 50 mg tablet 50 mg PO DAILY aspirin [Adult Aspirin Regimen] 81 mg tablet,delayed release (DR/EC) 81 mg PO DAILY lisinopril 40 mg tablet 40 mg PO DAILY lovastatin 20 mg tablet 20 mg PO DAILY hydrochlorothiazide 12.5 mg tablet 12.5 mg PO DAILY mecobalamin (vitamin B12) 1,000 mcg tablet,chewable 1,000 mcg PO DAILY amlodipine 10 mg tablet 10 mg PO DAILY lorazepam 1 mg tablet 1 mg PO DAILY PRN
[2022-06-23 14:55] LABS: MANUAL DIFF FLAG NO
[2022-06-23 15:10] LABS: Basophils Absolute Auto 0.1 X10*3/uL (0.0-0.2); Eosinophils Absolute Auto 0.2 X10*3/uL (0.0-0.4); Eosinophils Percent Auto 1.6 % (0-4); Hematocrit 23.7 % (37.0-47.0); Imm Gran Abs Auto 0.04 X10*3/uL (0.00-0.03); Imm Gran Pct Auto 0.4 % (0.0-0.4); Lymphocytes Absolute Auto 1.5 X10*3/uL (1.2-4.9); Lymphocytes Percent Auto 15.3 % (20-40); Mean Corpuscular HGB Conc 28.3 g/dl (31.0-35.0); Mean Corpuscular Hemoglobin 20.2 pg (27.0-33.0); Mean Corpuscular Volume 71.4 fL (80.0-98.0); Mean Platelet Volume 10.2 fL (9.4-12.3); Monocytes Absolute Auto 0.6 X10*3/uL (0.1-1.2); Monocytes Percent Auto 6.4 % (2-11); Neutrophils Absolute Auto 7.3 x10*3/uL (2.0-8.3); Neutrophils Percent Auto 75.3 % (45-73); Platelet Count 390 X10*3/uL (160-400); Red Blood Count 3.32 X10*6/uL (4.20-5.50); Red Cell Distribution Width 16.2 % (11.0-16.0); White Blood Count 9.7 X10*3/uL (4.8-10.8)
[2022-06-23 15:17] LABS: Hemoglobin 6.7 g/dl (12.0-16.0)
[2022-06-23 15:18] LABS: Alanine Aminotransferase 11 U/L (0-31); Alkaline Phosphatase 100 U/L (39-117); Anion Gap 12 (12-20); Aspartate Amino Transferase 12 U/L (5-31); Bilirubin Total 0.5 mg/dL (0.0-1.0); Blood Urea Nitrogen 20 mg/dL (9-16); Calcium 9.3 mg/dL (8.4-10.2); Carbon Dioxide 24 mmol/L (22-29); Chloride 111 mmol/L (96-108); Creatinine Clr Calc Pharmacy 59.5; Estimated Glomerular Filt Rate 49; Glucose Random 135 mg/dL (60-115); Potassium 5.3 mmol/L (3.3-5.1); Sodium 142 mmol/L (135-145); Total Protein 6.3 g/dL (6.5-8.0)
[2022-06-23 15:24] LABS: B Type Natriuretic Peptide 118 pg/mL (<100)
--- NOTE | 2022-06-23 15:29 | ECG_ITS ---
Test Reason : abnormal labs Blood Pressure : / mmHG Vent. Rate : 054 BPM Atrial Rate : 054 BPM P-R Int : 172 ms QRS Dur : 094 ms QT Int : 416 ms P-R-T Axes : 023 052 042 degrees QTc Int : 394 ms Sinus bradycardia Otherwise normal ECG No previous ECGs available Referred By: Johnathon Lucas Electronically Signed By:EDUARDO NANCE
[2022-06-23 15:48] LABS: OBS Int Ctl Valid YES; OBS1 NEGATIVE (NEGATIVE)
[2022-06-23 15:52] LABS: INTERNATIONAL NORM RATIO 1.5 (0.9-1.1); Prothrombin Time 17.3 SEC (10.0-13.1)
--- NOTE | 2022-06-23 16:13 | PC.NURSE ---
20g IV started in LAC and 22g started in left wrist per request of the patient. both patent and clear for use. Zora PCT getting blood at this time. all VSS
--- NOTE | 2022-06-23 16:29 | PC.NURSE ---
blood transfusion started, pt tolerating well so far, no apparent distress, respirations even and unlabored
--- NOTE | 2022-06-23 19:01 | PM.IMHP ---
History of Present Illness Date of Service: 06/23/22 <ALEXEI Stubbs - Last Filed: 06/23/22 20:12> Attending physician on admission: Cam Marino <ALEXEI Stubbs - Last Filed: 06/23/22 20:12> Chief Complaint: Abnormal labs, anemia <ALEXEI Stubbs - Last Filed: 06/23/22 20:12> Pt is a 67-year-old female with a PMH significant for?paroxysmal AFib on Xarelto, IBS, hiatal hernia, GERD, HTN, HLD, insomnia, and depression who presents to the ED for blood transfusion after PCP (Dr. Houston) found low H&H of 6.9/25.5. Patient states that she has been experiencing shortness of breath with exertion for the past year. She has had an extensive workup that has included an echocardiogram, cardioversion for AFib, nuclear stress test, and heart CT, all of which have come back without a clear diagnosis. Patient has most recently been referred to a motor assembler. Patient notes that her shortness of breath has been worsening as of late; she can no longer even sweeper floor without having to stop and rest for 15 minutes to 1/2 hour afterwards. Patient has also been experiencing occasional lightheadedness and dizziness primarily with position changes. Patient has a history of IBS diarrhea predominant for which she now takes Imodium. Says she sometimes gets ?belly discomfort? that she describes as ?light cramps?, usually occurs once every week or two, alleviated with Pepto-Bismol or Tums. Patient also experiences occasional substernal chest pressure which is nonradiating. Has been occurring every few days over the past month with last episode yesterday that lasted approximately 50 minutes before resolving. No diaphoresis, headache. Denies fever, chills, nausea, vomiting, diarrhea. Of note, patient also states she has intentionally lost 28 lb since January. Patient is unable to exercise due to SOB but has been using the [employer] weight loss program which stresses balanced meals with smaller portions. In the ED patient was afebrile but hypotensive as low as 102/43, satting at 99% on RA. Labs were significant for H&H of 6.7/23.7, MCV of 71.4, potassium of 5.3, creatinine 1.11, BNP mildly elevated 118. Hepatic function WNL. Stool was negative for occult blood. CXR showed no evidence for failure but did show mild bilateral mid to lower lung opacities that could represent areas of early infiltrate though trace effusions cannot be excluded. CT of abdomen and pelvis pending. EKG demonstrated sinus bradycardia of 50 BPM with no evidence of ST elevations or depressions. Pt will be treated with 2 units of packed red blood cells. Pt will be admitted to the hospital under observation on telemetry for treatment and further evaluation of symptomatic anemia. <ALEXEI Stubbs - Last Filed: 06/23/22 20:12> [facility] Medical History: Medical History Acid reflux Anxiety Arthritis High cholesterol HTN (hypertension) Osteoporosis <ALEXEI Stubbs - Last Filed: 06/23/22 20:12> Surgical History: Surgical History H/O hernia repair H/O right breast biopsy History of tubal ligation <ALEXEI Stubbs - Last Filed: 06/23/22 20:12> Social History: Social History Alcohol intake: current Alcohol intake frequency: holidays/special occasions only Patient Tobacco Use Status: Never used Tobacco Years Smoked: quit 10 years ago Smoked in Last 30 Days: No Use of substances other than those prescribed or required for medical reasons: Yes Substance Use Type: Marijuana Substance Use Frequency: Daily Any prior treatment program specific to substance use: No Advance Directives: Yes Advance Directives Information Provided: No Advance Directives on File: No Nutrition Risks: No Nutritional Risk Current occupational status: retired Current occupation: right handed <ALEXEI Stubbs - Last Filed: 06/23/22 20:12> Meds Allergies/Adverse reactions: Allergies Allergy/AdvReac Type Severity Reaction Status Date / Time No Known Allergies Allergy Unverified 07/03/20 11:08 [No Known Allergies*] oxycodone AdvReac Unknown itching Uncoded 07/03/20 11:08 <ALEXEI Stubbs - Last Filed: 06/23/22 20:12> Active Medications: Current Medications Pharmacy Consult (Consult Rx Perform Med Rec) 1 each MISCELLANE ONCE PRN PRN Reason: Consult order <ALEXEI Stubbs - Last Filed: 06/23/22 20:12> Home medications: Home Medications Medication Instructions Recorded Confirmed Last Taken Type amlodipine 10 mg tablet 10 mg PO DAILY 07/03/20 06/23/22 06/23/22 History hydrochlorothiazide 12.5 mg tablet 12.5 mg PO DAILY 07/03/20 06/23/22 06/23/22 History lisinopril 40 mg tablet 40 mg PO DAILY 07/03/20 06/23/22 06/23/22 History lorazepam 1 mg tablet 1 mg PO BEDTIME 07/03/20 06/23/22 06/22/22 History mecobalamin (vitamin B12) 1,000 2,000 mcg PO DAILY 07/03/20 06/23/22 06/23/22 History mcg chewable tablet omeprazole 20 mg capsule,delayed 20 mg PO DAILY 07/03/20 06/23/22 06/23/22 History release sertraline 50 mg tablet 50 mg PO DAILY 07/03/20 06/23/22 06/23/22 History cholecalciferol (vitamin D3) 50 50 mcg PO BEDTIME 06/23/22 06/23/22 06/22/22 History mcg (2,000 unit) capsule (Vitamin D3) isosorbide mononitrate 30 mg 30 mg PO DAILY 06/23/22 06/23/22 06/23/22 History tablet,extended release 24 hr melatonin 3 mg tablet 6 mg PO BEDTIME 06/23/22 06/23/22 06/22/22 History metoprolol succinate 25 mg 25 mg PO BEDTIME 06/23/22 06/23/22 06/22/22 History tablet,extended release 24 hr rivaroxaban 20 mg tablet (Xarelto) 20 mg PO DAILY@1700 06/23/22 06/23/22 06/22/22 History rosuvastatin 10 mg tablet 10 mg PO BEDTIME 06/23/22 06/23/22 06/22/22 History <ALEXEI Stubbs - Last Filed: 06/23/22 20:12> Physical Exam Vital Signs and Narrative: Vital Signs: Last Vital Signs Temp 99.8 F 06/23/22 16:36 Pulse 62 06/23/22 16:36 Resp 15 06/23/22 16:36 BP 116/51 L 06/23/22 16:36 Pulse Ox 99 06/23/22 15:56 O2 Del Method Room Air 06/23/22 15:56 BMI result Body Mass Index 37.5 <ALEXEI Stubbs - Last Filed: 06/23/22 20:12> Constitutional: Alert, in no acute distress. Mental Status: Oriented to person, place and time. Eyes: Pupils are equal, round, and reactive to light. Ear, Nose, and Throat: Oropharynx clear, mucous membranes moist. Ears and nose without deformities. Trachea midline. Respiratory: Clear to auscultation bilaterally. No wheezing, rales, or rhonchi. Cardiovascular: S1, S2 regular. No murmurs, rubs, or gallops. Gastrointestinal: Abdomen soft, non-tender, non-distended. Normal bowel sounds. Neurologic: Cranial nerves II-XII are grossly intact bilaterally. No focal neurological deficits. Moves all extremities spontaneously. Skin: No rashes or lesions noted. Musculoskeletal: No cyanosis or clubbing. Extremities: No edema. Psychiatric: Normal mood and affect. <ALEXEI Stubbs - Last Filed: 06/23/22 20:12> Results Labs CBC and Chem 7: 06/23/22 14:47 06/23/22 14:47 <ALEXEI Stubbs - Last Filed: 06/23/22 20:12> Labs: Laboratory Results - last 24 hr 06/23/22 06/23/22 06/23/22 14:47 14:47 14:47 MCV 71.4 L MCH 20.2 L MCHC 28.3 L RDW 16.2 H Plt Count 390 MPV 10.2 Immature Gran % (Auto) 0.4 Neut % (Auto) 75.3 H Lymph % (Auto) 15.3 L [place] % (Auto) 6.4 Eos % (Auto) 1.6 Baso % (Auto) 1.0 Lymph # (Auto) 1.5 [place] # (Auto) 0.6 Eos # (Auto) 0.2 Baso # (Auto) 0.1 Abs Immat Gran (auto) 0.04 H Absolute Neuts (auto) 7.3 Absolute Nucleated RBC 0.000 Nucleated RBC % (auto) 0.0 PT INR Anion Gap 12 Estim Creat Clear Calc 59.5 Estimated GFR 49 Random Glucose 135 H Calcium 9.3 Total Bilirubin 0.5 AST 12 ALT 11 Alkaline Phosphatase 100 Troponin I High Sens B-Natriuretic Peptide Total Protein 6.3 L Albumin 4.0 Stool Occult Blood Blood Type O Positive Antibody Screen NEGATIVE Crossmatch See Detail 06/23/22 06/23/22 06/23/22 14:47 14:47 15:27 MCV MCH MCHC RDW Plt Count MPV Immature Gran % (Auto) Neut % (Auto) Lymph % (Auto) [place] % (Auto) Eos % (Auto) Baso % (Auto) Lymph # (Auto) [place] # (Auto) Eos # (Auto) Baso # (Auto) Abs Immat Gran (auto) Absolute Neuts (auto) Absolute Nucleated RBC Nucleated RBC % (auto) PT 17.3 H INR 1.5 H Anion Gap Estim Creat Clear Calc Estimated GFR Random Glucose Calcium Total Bilirubin AST ALT Alkaline Phosphatase Troponin I High Sens B-Natriuretic Peptide 118 H Total Protein Albumin Stool Occult Blood NEGATIVE Blood Type Antibody Screen Crossmatch 06/23/22 15:40 MCV MCH MCHC RDW Plt Count MPV Immature Gran % (Auto) Neut % (Auto) Lymph % (Auto) [place] % (Auto) Eos % (Auto) Baso % (Auto) Lymph # (Auto) [place] # (Auto) Eos # (Auto) Baso # (Auto) Abs Immat Gran (auto) Absolute Neuts (auto) Absolute Nucleated RBC Nucleated RBC % (auto) PT INR Anion Gap Estim Creat Clear Calc Estimated GFR Random Glucose Calcium Total Bilirubin AST ALT Alkaline Phosphatase Troponin I High Sens 3.0 B-Natriuretic Peptide Total Protein Albumin Stool Occult Blood Blood Type Antibody Screen Crossmatch <ALEXEI Stubbs - Last Filed: 06/23/22 20:12> Imaging Radiologist's Impressions: Impressions Chest X-Ray 06/23/22 16:15 IMPRESSION: Some mild bilateral mid to lower lung opacities could represent areas of early infiltrate. Trace effusions cannot be excluded. Cardiac silhouette is not appear pathologically enlarged but is slightly more prominent than previous. This could be due to projection. The hilar structures are also mildly prominent. This could be reactive. I would recommend follow-up study. No evidence for failure <ALEXEI Stubbs - Last Filed: 06/23/22 20:12> Assessment and Plan (1) Microcytic anemia: Status: Acute <ALEXEI Stubbs - Last Filed: 06/23/22 20:12> Pt is a 67-year-old female with a PMH significant for?paroxysmal AFib on Xarelto, IBS, hiatal hernia, GERD, HTN, HLD, insomnia, and depression who presents to the ED for blood transfusion after PCP (Dr. Houston) found low H&H of 6.9/25.5. Pt will be admitted to the hospital under observation on telemetry for treatment and further evaluation of symptomatic anemia Microcytic anemia Patient's H&H of 6.7 or 23.7, MCV 71.4 Patient with fatigue, weakness, lightheadedness, dizziness, shortness of breath Etiology unclear Patient is to receive [address] of abdomen and pelvis pending Stool was negative for occult blood Check iron panel GI consult NPO after midnight in anticipation of possible procedure tomorrow Hold Xarelto, pneumatic boots for DVT prophylaxis Shortness of breath Patient has been experiencing SOB x1 year Unclear etiology: Patient has had extensive cardiac workup in the past year Patient with a 40+ pack-year smoking history, quit 12 years ago Chest x-ray with evidence of possible early infiltrate in the lower lobes Patient without leukocytosis, denies cough Follow-up outpatient with pulmonology Hyperkalemia Potassium of 5.3, is set to receive 2 units or PRBC Lokelma 5g x1 dose Paroxysmal AFib EKG showed sinus bradycardia Patient cardioverted earlier in the year Continue metoprolol Hold Xarelto in anticipation of possible procedure tomorrow HTN BP a little soft, hold lisinopril, hydrochlorothiazide, amlodipine for now Continue antihypertensives as necessary HLD Continue statin GERD Continue PPI Insomnia Continue melatonin, lorazepam Full Code Attending:?Dr. Marino DVT Prophylaxis: Pneumatic boots Pt will be admitted to the hospital under observation on telemetry for treatment and further evaluation of symptomatic anemia <ALEXEI Stubbs - Last Filed: 06/23/22 20:12> Pt is a 67-year-old female with a PMH significant for?paroxysmal AFib on Xarelto, IBS, hiatal hernia, GERD, HTN, HLD, insomnia, and depression who presents to the ED for blood transfusion after PCP (Dr. Houston) found low H&H of 6.9/25.5. Pt will be admitted to the hospital under observation on telemetry for treatment and further evaluation of symptomatic anemia Symptomatic microcytic anemia Patient's H&H of 6.7 or 23.7, MCV 71.4 Patient with fatigue, weakness, lightheadedness, dizziness, shortness of breath Etiology unclear Patient is to receive [address] of abdomen and pelvis pending Stool was negative for occult blood Check iron panel GI consult NPO after midnight in anticipation of possible procedure tomorrow Hold Xarelto, pneumatic boots for DVT prophylaxis Hyperkalemia Potassium of 5.3, is set to receive 2 units or PRBC Lokelma 5g x1 dose Paroxysmal AFib EKG showed sinus bradycardia Patient cardioverted earlier in the year Continue metoprolol Hold Xarelto in anticipation of possible procedure tomorrow HTN BP a little soft, hold lisinopril, hydrochlorothiazide, amlodipine for now Continue antihypertensives as necessary HLD Continue statin GERD Continue PPI Insomnia Continue melatonin, lorazepam Full Code Attending:?Dr. Marino DVT Prophylaxis: Pneumatic boots Pt will be admitted to the hospital under observation on telemetry for treatment and further evaluation of symptomatic anemia <Cam Marino MD - Last Filed: 06/23/22 20:27> Time Spent With Patient Time: Total time managing care of this patient today ____ minutes. <ALEXEI Stubbs - Last Filed: 06/23/22 20:12> Quality Stroke Does the patient have a stroke diagnosis?: No <ALEXEI Stubbs - Last Filed: 06/23/22 20:12> VTE Prior VTE?: No <ALEXEI Stubbs - Last Filed: 06/23/22 20:12> VTE Risk Level:: Medical - moderate - high <ALEXEI Stubbs - Last Filed: 06/23/22 20:12> VTE Device Contraindication: N/A - Device Ordered <ALEXEI Stubbs - Last Filed: 06/23/22 20:12> VTE Drug Contraindication: Treatment Not Indicated <ALEXEI Stubbs - Last Filed: 06/23/22 20:12>
--- NOTE | 2022-06-23 19:07 | PHA.MEDREC ---
Pharmacy Consult ? Medication Reconciliation Pharmacy has completed the medication reconciliation. Patient states they recently started imdur and crestor yesterday. Patient was told today to stop xarelto. Patient has a valtrex 500mg x 10 day prn order too for cold sores Ezekiel
--- NOTE | 2022-06-23 19:11 | PC.NURSE ---
pt continuing to rest comfortably in no apparent distress. Blood transfusion about 3/4 finished. Pt was able to get up to the commode with minimal assistance, pt continues to report no pain. resprations remain equal and unlabored, skin pwd, alert and oriented x4. Awaiting admission orders
[2022-06-23] MEDS: Sodium Zirconium Cyclosilicate 5 GM POWD.PACK PO (19:21)
--- NOTE | 2022-06-23 19:44 | PC.NURSE ---
attempted report at 194, unable to give report at this time
[2022-06-23 20:02] LABS: Iron 111 mcg/dL (30-160); Percent Iron Saturation 32 % (15-50); Total Iron Binding Capacity 344 mcg/dL (228-428); Unsaturated Iron Binding 233 ug/dL
[2022-06-23] MEDS: iohexoL 350 MG/ML 100 ML INFUS..BTL IV (20:21)
--- NOTE | 2022-06-23 20:41 | PC.NURSE ---
about 50mls of blood wasted due to reaching time limit on blood. verbal order from MD to run blood slowly. Blood finished and patient went to CT. Pt now awaiting transport to go to floor. Report given
[2022-06-23] MEDS: Melatonin 3 MG TABLET 6 MG PO (21:20)
[2022-06-23] MEDS: Cholecalciferol (Vitamin D3) 25 MCG TABLET 50 MCG PO (21:20)
[2022-06-23] MEDS: Metoprolol Succinate ER 25 MG TAB.ER.24H PO (21:20)
[2022-06-23] MEDS: Atorvastatin Calcium 40 MG TABLET PO (21:20)
[2022-06-23] MEDS: LORazepam 1 MG TABLET PO (21:20)
[2022-06-24 00:46] VITALS: BP 112/60; PULSE 63; RESP 16; TEMP 36.8
[2022-06-24 03:49] VITALS: BP 114/57; PULSE 61; TEMP 36.4; O2SAT 97
[2022-06-24] MEDS: Omeprazole 20 MG CAPSULE.DR PO (05:34)
[2022-06-24 06:27] LABS: MANUAL DIFF FLAG NO
[2022-06-24 06:37] LABS: Basophils Absolute Auto 0.1 X10*3/uL (0.0-0.2); Basophils Percent Auto 0.9 % (0-2); Eosinophils Absolute Auto 0.3 X10*3/uL (0.0-0.4); Eosinophils Percent Auto 2.8 % (0-4); Hematocrit 27.1 % (37.0-47.0); Hemoglobin 7.9 g/dl (12.0-16.0); Imm Gran Abs Auto 0.07 X10*3/uL (0.00-0.03); Imm Gran Pct Auto 0.7 % (0.0-0.4); Lymphocytes Absolute Auto 2.3 X10*3/uL (1.2-4.9); Lymphocytes Percent Auto 22.2 % (20-40); Mean Corpuscular HGB Conc 29.2 g/dl (31.0-35.0); Mean Corpuscular Hemoglobin 21.9 pg (27.0-33.0); Mean Corpuscular Volume 75.3 fL (80.0-98.0); Mean Platelet Volume 10.4 fL (9.4-12.3); Monocytes Absolute Auto 0.9 X10*3/uL (0.1-1.2); Monocytes Percent Auto 8.7 % (2-11); Neutrophils Absolute Auto 6.6 x10*3/uL (2.0-8.3); Neutrophils Percent Auto 64.7 % (45-73); Platelet Count 338 X10*3/uL (160-400); Red Cell Distribution Width 17.8 % (11.0-16.0); White Blood Count 10.1 X10*3/uL (4.8-10.8)
[2022-06-24 07:02] LABS: Anion Gap 12 (12-20); Blood Urea Nitrogen 19 mg/dL (9-16); Calcium 9.2 mg/dL (8.4-10.2); Carbon Dioxide 26 mmol/L (22-29); Chloride 109 mmol/L (96-108); Estimated Glomerular Filt Rate > 60; Glucose Random 96 mg/dL (60-115); Potassium 4.7 mmol/L (3.3-5.1); Sodium 142 mmol/L (135-145)
[2022-06-24 07:14] VITALS: BP 127/59; PULSE 60; RESP 16; TEMP 37.6; O2SAT 96
[2022-06-24] MEDS: Sertraline HCL 50 MG TABLET PO (08:21)
[2022-06-24] MEDS: Cyanocobalamin (Vitamin B-12) 1,000 MCG TABLET 2000 MCG PO (08:21)
[2022-06-24] MEDS: Acetaminophen 325 MG TABLET 650 MG PO ×2 (08:21→20:11)
[2022-06-24] MEDS: 0.9 % Sodium Chloride Flush 3 ML SYRINGE IVFLUSH ×3 (08:22→20:13)
--- NOTE | 2022-06-24 08:22 | MHC.CM.PN ---
CM met with Patient at bedside and addressed CAST with her, providing her with the original and placing a copy on the chart. Patient lives in a house with her Partner/HCP and she uses a cane at times to assist with mobility. Home/self care is the goal and CM has initiated and will follow for dc planning. Patient has received Covid vax x3 and her PCP is Dr. Ranjeet Houston.
[2022-06-24 08:55] LABS: Procalcitonin 0.03 ng/mL
[2022-06-24 11:15] VITALS: BP 130/60; PULSE 56; RESP 16; TEMP 36.8; O2SAT 99
--- NOTE | 2022-06-24 13:34 | PM.EVENT ---
Event Note Date of Service: 06/24/22 Event Note: GI consult dictated EGD and colonoscopy to be arranged as outpatient for further evaluation of microcytic anemia. Hold Damien for now. Time Spent With Patient Time: Total time managing care of this patient today ____ minutes.
[2022-06-24] MEDS: Dicyclomine HCl 10 MG CAPSULE 20 MG PO (13:54)
--- NOTE | 2022-06-24 14:46 | CONS_ITS ---
DATE OF SERVICE: 06/24/2022 REFERRING PHYSICIAN: Supriya Wheat MD REASON FOR CONSULTATION: Microcytic anemia. HISTORY OF PRESENT ILLNESS: The patient is a pleasant 67-year-old woman, known to me from prior evaluation, who was admitted to the hospital on June 23 after presenting to the emergency room with severe anemia. She reports fatigue over the past year and dyspnea on exertion and seen by her accounting generalist and underwent a battery of testings including stress testing and echocardiogram. She also had atrial fibrillation and was cardioverted. She reports being on Xarelto over the last 3 to 4 months. She has seen no rectal bleeding. She does have history of irritable bowel syndrome and gets intermittent, crampy abdominal pain and takes omeprazole for chronic reflux symptoms. She has had a 28-pound weight loss, which has been voluntary. Blood work through her primary care provider's office showed a hematocrit of 25, and she was referred to the emergency room. Repeat testing showed hematocrit of 23.7 with microcytic indices consistent with iron deficiency. Stool occult blood testing was negative. She was admitted to the hospital. She has been transfused 2 units of packed red blood cells, and there has been no reported GI bleeding. Laboratory studies showed improvement of her hematocrit to 27.1 this morning following blood transfusion. She has a history of previous colon polyps and has undergone routine screening colonoscopies. She was due this year, but has postponed it because of her cardiac issues. She also had a history of undergoing upper endoscopy, but this was approximately 15 to 20 years ago by her report. Those records are not available but will be reviewed. PAST MEDICAL HISTORY: 1. Atrial fibrillation 2. Hiatal hernia/gastroesophageal reflux disease. 3. Irritable bowel syndrome. 4. Colon polyps. 5. Hypertension. 6. Hyperlipidemia. 7. Insomnia. 8. Depression. CURRENT MEDICATIONS: Her current medication list is reviewed in the chart. She has not been using NSAIDs or aspirin. FAMILY HISTORY: This is reviewed with the patient and is noncontributory. SOCIAL HISTORY: There is no current tobacco, alcohol, or substance abuse. REVIEW OF SYSTEMS: SKIN: No pruritus. HEENT: Negative. CARDIOPULMONARY: She denies shortness of breath or chest pain currently. GASTROINTESTINAL: As above. GENITOURINARY: Negative. NEUROPSYCHIATRIC: Negative. PHYSICAL EXAMINATION: GENERAL: A pleasant female, lying comfortably in bed. VITAL SIGNS: Reviewed in the electronic medical record and are stable. SKIN: Anicteric. HEENT: No scleral icterus. NECK: Without lymphadenopathy or thyromegaly. LUNGS: Clear. Heart: Regular rate and rhythm. S1, S2. No murmur. ABDOMEN: Soft without focal masses or tenderness. Bowel sounds were present. No organomegaly was noted. EXTREMITIES: Without edema. LABORATORY DATA: Reviewed. IMPRESSION: Anemia. Her presentation is consistent with iron deficiency anemia without any active gastrointestinal bleeding at this time. She is due for colonoscopy, and I would recommend she undergo upper endoscopy for further evaluation of her anemia. This will be arranged next week as outpatient. In the interim, I would hold her anticoagulation with Xarelto, and monitor her hematocrit. I have discussed risks and benefits of endoscopy and colonoscopy with her. She understands this and agrees to proceed. Thanks for asking me to see her. I will follow her in the hospital with you. MD JELANI Orr/AIDA / [id number] MTDD
[2022-06-24 15:28] VITALS: BP 126/57; PULSE 71; RESP 18; TEMP 36.4; O2SAT 95
--- NOTE | 2022-06-24 15:56 | P.PNIM_ITS ---
Subjective Subjective Date of Service: 06/24/22 Interval History: feels better after transfusion- less dyspneic due for C-scope no bharati GI bleeding Review of Systems Review of Systems: Yes all other systems are reviewed and are negative Physical Exam Vital Signs: Vital Signs: Last Vital Signs Temp 97.6 F 06/24/22 15:28 Pulse 71 06/24/22 15:28 Resp 18 06/24/22 15:28 BP 126/57 L 06/24/22 15:28 Pulse Ox 95 06/24/22 15:28 O2 Del Method Room Air 06/24/22 15:28 BMI result Body Mass Index 37.7 Gen: in no acute distress HEENT: sclera anicteric, pale mucus membranes Neck: supple Lungs: clear to auscultation bilaterally Heart: regular rate and rhythm, no murmurs Abd: soft, non-tender, non-distended Ext: no edema Skin: warm/well-perfused Neuro: alert and oriented x3, no focal findings Psych: appropriate affect Objective Data Active Medications Acetaminophen (Acetaminophen 325 Mg Tablet) 650 mg PO Q6H PRN PRN Reason: Pain, Mild (Pain Scale 1-3) Last Admin: 06/24/22 08:21 Dose: 650 mg Documented By: ROGER Atorvastatin Calcium (Atorvastatin Calcium 40 Mg Tablet) 40 mg PO BEDTIME [facility] Last Admin: 06/23/22 21:20 Dose: 40 mg Documented By: ALBERTO Cyanocobalamin (Cyanocobalamin (Vitamin B-12) 1,000 Mcg Tablet) 2,000 mcg PO DAILY [facility] Last Admin: 06/24/22 08:21 Dose: 2,000 mcg Documented By: ROGER Dicyclomine HCl (Dicyclomine Hcl 10 Mg Capsule) 20 mg PO QIDACHS PRN PRN Reason: GI Upset Lorazepam (Lorazepam 1 Mg Tablet) 1 mg PO BEDTIME [facility] Last Admin: 06/23/22 21:20 Dose: 1 mg Documented By: ALBERTO Melatonin (Melatonin 3 Mg Tablet) 6 mg PO BEDTIME PRN PRN Reason: Insomnia Melatonin (Melatonin 3 Mg Tablet) 6 mg PO BEDTIME [facility] Last Admin: 06/23/22 21:20 Dose: 6 mg Documented By: ALBERTO Metoprolol Succinate (Metoprolol Succinate Er 25 Mg Tab.Er.24h) 25 mg PO BEDTI [facility]; Protocol Last Admin: 06/23/22 21:20 Dose: 25 mg Documented By: ALBERTO Omeprazole (Omeprazole 20 Mg Capsule.Dr) 20 mg PO DAILY@0630 [facility] Last Admin: 06/24/22 05:34 Dose: 20 mg Documented By: ALBERTO Ondansetron HCl (Ondansetron Hcl 4 Mg/2 Ml Vial) 4 mg IVPUSH Q8H PRN PRN Reason: Nausea and Vomiting Pharmacy Consult (Consult Rx Perform Med Rec) 1 each MISCELLANE ONCE PRN PRN Reason: Consult order Sertraline HCl (Sertraline Hcl 50 Mg Tablet) 50 mg PO DAILY [facility] Last Admin: 06/24/22 08:21 Dose: 50 mg Documented By: ROGER Sodium Chloride (0.9 % Sodium Chloride Flush 3 Ml Syringe) 3 ml IVFLUSH QSHIFT [facility] Last Admin: 06/24/22 13:54 Dose: 3 ml Documented By: ROGER Vitamin D (Cholecalciferol (Vitamin D3) 25 Mcg Tablet) 50 mcg PO BEDTIME [facility] Last Admin: 06/23/22 21:20 Dose: 50 mcg Documented By: ALBERTO Labs 06/24/22 06:03 06/24/22 06:03 Labs: Laboratory Results - last 24 hr 06/23/22 06/23/22 06/23/22 14:47 15:40 19:41 MCV MCH MCHC RDW Plt Count MPV Immature Gran % (Auto) Neut % (Auto) Lymph % (Auto) [place] % (Auto) Eos % (Auto) Baso % (Auto) Lymph # (Auto) [place] # (Auto) Eos # (Auto) Baso # (Auto) Abs Immat Gran (auto) Absolute Neuts (auto) Absolute Nucleated RBC Nucleated RBC % (auto) Anion Gap Estim Creat Clear Calc Estimated GFR Random Glucose Calcium Iron TIBC % Saturation Unsat Iron Binding Troponin I High Sens 3.0 3.0 Procalcitonin Blood Type O Positive Antibody Screen NEGATIVE Crossmatch See Detail 06/23/22 06/24/22 06/24/22 19:41 06:03 06:03 MCV 75.3 L MCH 21.9 L MCHC 29.2 L RDW 17.8 H Plt Count 338 MPV 10.4 Immature Gran % (Auto) 0.7 H Neut % (Auto) 64.7 Lymph % (Auto) 22.2 [place] % (Auto) 8.7 Eos % (Auto) 2.8 Baso % (Auto) 0.9 Lymph # (Auto) 2.3 [place] # (Auto) 0.9 Eos # (Auto) 0.3 Baso # (Auto) 0.1 Abs Immat Gran (auto) 0.07 H Absolute Neuts (auto) 6.6 Absolute Nucleated RBC 0.000 Nucleated RBC % (auto) 0.0 Anion Gap 12 Estim Creat Clear Calc 77.0 Estimated GFR > 60 Random Glucose 96 Calcium 9.2 Iron 111 TIBC 344 % Saturation 32 Unsat Iron Binding 233 Troponin I High Sens Procalcitonin 0.03 Blood Type Antibody Screen Crossmatch Assessment and Plan (1) Microcytic anemia: Status: Acute Plan 7-year-old female with a PMH significant for?paroxysmal AFib on Xarelto, IBS, hiatal hernia, GERD, HTN, HLD, insomnia, and depression who presents to the ED for blood transfusion after PCP (Dr. Houston) found low H&H of 6.9/25.5.? Pt will be admitted to the hospital under observation on telemetry for treatment and further evaluation of symptomatic anemia # symptomatic microcytic anemia - transfused 2u pRBCs, Hb 6.7->7.9 - FOBT negative - GI consulted, will contact her for outpt EGD + C-scope next week; continue to hold rivaroxaban - recheck H+H in AM # paroxysmal AF - NSR currently - continue metoprolol succinate - hold rivaroxaban pending scope # hyperK - resolved # HTN - holding lisinopril, HCTZ, amlodipine; continue metoprolol succinate # HLD - continue statin # GERD - continue PPI # insomnia - continue melatonin + lorzepam # VTE ppx: hold AC due to anemia # dispo: likely home in AM In my clinical judgment, the patient requires continued inpatient hospitalization for the following reasons: monitoring Hb Time Spent With Patient Time: Total time managing care of this patient today __35__ minutes. Quality Stroke Does the patient have a stroke diagnosis?: No VTE Prior VTE?: No VTE Risk Level:: Medical - moderate - high VTE Device Contraindication: N/A - Device Ordered VTE Drug Contraindication: Treatment Not Indicated
[2022-06-24 18:55] VITALS: BP 120/56; PULSE 59; RESP 18; TEMP 36.9; O2SAT 96
[2022-06-24] MEDS: LORazepam 1 MG TABLET PO (20:11)
[2022-06-24] MEDS: Cholecalciferol (Vitamin D3) 25 MCG TABLET 50 MCG PO (20:11)
[2022-06-24] MEDS: Atorvastatin Calcium 40 MG TABLET PO (20:11)
[2022-06-24] MEDS: Melatonin 3 MG TABLET 6 MG PO (20:11)
[2022-06-24] MEDS: Metoprolol Succinate ER 25 MG TAB.ER.24H PO (20:11)
[2022-06-25] VITALS: BP 133/63; PULSE 58; RESP 20; TEMP 36.3; O2SAT 95
[2022-06-25 03:47] VITALS: BP 137/63; PULSE 57; RESP 20; TEMP 36.1; O2SAT 92
[2022-06-25] MEDS: Omeprazole 20 MG CAPSULE.DR PO (06:06)
[2022-06-25 07:05] LABS: Hematocrit 29.8 % (37.0-47.0); Hemoglobin 8.6 g/dl (12.0-16.0); Mean Corpuscular HGB Conc 28.9 g/dl (31.0-35.0); Mean Corpuscular Hemoglobin 21.6 pg (27.0-33.0); Mean Corpuscular Volume 74.9 fL (80.0-98.0); Platelet Count 337 X10*3/uL (160-400); Red Blood Count 3.98 X10*6/uL (4.20-5.50); Red Cell Distribution Width 18.6 % (11.0-16.0); White Blood Count 8.3 X10*3/uL (4.8-10.8)
[2022-06-25 07:16] LABS: Anion Gap 10 (12-20); Blood Urea Nitrogen 15 mg/dL (9-16); Calcium 9.3 mg/dL (8.4-10.2); Carbon Dioxide 26 mmol/L (22-29); Chloride 111 mmol/L (96-108); Creatinine Clr Calc Pharmacy 74.5; Estimated Glomerular Filt Rate > 60; Glucose Random 105 mg/dL (60-115); Potassium 4.4 mmol/L (3.3-5.1); Sodium 143 mmol/L (135-145)
[2022-06-25 08:00] VITALS: BP 136/65; PULSE 63; RESP 20; TEMP 36.3; O2SAT 94
[2022-06-25] MEDS: Cyanocobalamin (Vitamin B-12) 1,000 MCG TABLET 2000 MCG PO (08:38)
[2022-06-25] MEDS: Sertraline HCL 50 MG TABLET PO (08:38)
[2022-06-25] MEDS: 0.9 % Sodium Chloride Flush 3 ML SYRINGE IVFLUSH (08:39)
--- NOTE | 2022-06-25 11:29 | P.DS_ITS ---
DS: Providers Provider Date of Service: 06/25/22 Date of admission: 06/23/22 19:01 Date of discharge: 06/25/22 Primary care physician: Ranjeet Houston MD Consults: 06/23/22 20:27 Consult to Gastroenterology Routine Consulting Provider: [facility] Reason for consultation: Anemia, ?GI Bleed DS: Diagnosis Discharge Diagnosis (1) Microcytic anemia: Status: Acute (2) Hyperkalemia: Status: Acute (3) HTN (hypertension): Status: Acute DS: Summary Hospital Course Hospital Course: from admission H+P by hospitalist ALEXEI Candelario, 06/23/22: ?Pt is a 67-year-old female with a PMH significant for?paroxysmal AFib on Xarelto, IBS, hiatal hernia, GERD, HTN, HLD, insomnia, and depression who presents to the ED for blood transfusion after PCP (Dr. Houston) found low H&H of 6.9/25.5.? Patient states that she has been experiencing shortness of breath with exertion for the past year.? She has had an extensive workup that has included an echocardiogram, cardioversion for AFib, nuclear stress test, and heart CT, all of which have come back without a clear diagnosis.? Patient has most recently been referred to a environment coordinator.? Patient notes that her shortness of breath has been worsening as of late; she can no longer even sweeper floor without having to stop and rest for 15 minutes to 1/2 hour afterwards.? Patient has also been experiencing occasional lightheadedness and dizziness primarily with position changes.? Patient has a history of IBS diarrhea predominant for which she now takes Imodium.? Says she sometimes gets ?belly discomfort? that she describes as ?light cramps?, usually occurs once every week or two, alleviated with Pepto-Bismol or Tums.? Patient also e xperiences occasional substernal chest pressure which is nonradiating.? Has been occurring every few days over the past month with last episode yesterday that lasted approximately 50 minutes before resolving.? No diaphoresis, headache.? Denies fever, chills, nausea, vomiting, diarrhea. Of note, patient also states she has intentionally lost 28 lb since January.? Patient is unable to exercise due to SOB but has been using the [employer] weight loss program which stresses balanced meals with smaller portions. In the ED patient was afebrile but hypotensive as low as 102/43, satting at 99% on RA. Labs were significant for H&H of 6.7/23.7, MCV of 71.4, potassium of 5.3, creatinine 1.11, BNP mildly elevated 118.? Hepatic function WNL. Stool was negative for occult blood. CXR showed no evidence for failure but did show mild bilateral mid to lower lung opacities that could represent areas of early infiltrate though trace effusions cannot be excluded. CT of abdomen and pelvis pending. EKG demonstrated sinus bradycardia of 50 BPM with no evidence of ST elevations or depressions. Pt will be treated with 2 units of packed red blood cells. Pt will be admitted to the hospital under observation on telemetry for treatment and further evaluation of symptomatic anemia. 57-year-old female with a PMH significant for?paroxysmal AFib on Xarelto, IBS, hiatal hernia, GERD, HTN, HLD, insomnia, and depression who presents to the ED for blood transfusion after PCP (Dr. Houston) found low H&H of 6.9/25.5.? Pt will be admitted to the hospital under observation on telemetry for treatment and further evaluation of symptomatic anemia She was admitted to the [facility] and transfused 2u pRBCs with improvement of Hb from 6.7->7.9. FOBT was negative. No signs of active bleeding. Her chronic dyspnea improved considerably. GI consulted and she was set up for outpatient EGD and colonoscopy on 06/28/22. She should continue to hold rivaorxaban til then. Iron replacement was prescribed. Hyperkalemia was quite mild and resolved after holding lisinopril and giving 1 dose of Lokelma. BP was low on presentation. Lisinopril, HCTZ, and amlodipine were held. Metoprolol succinate was continued and Imdur upon discharge. She should follow- up with her PCP in 1 week for BP measurement and lisinopril, HCTZ, and amlodipine may be added back in stepwise fashion if needed. Time Spent with Patient Time attestation: Total time managing care of this patient today 45____ minutes. Discharge coordination time: Greater than 30 minutes Quality: Safe Use of Opioids Does Pt have an Active Cancer Diagnosis on the Problem List?: No Quality: Stroke Does the patient have a stroke diagnosis?: No Physical Exam Vital Signs: Vital Signs: Last Vital Signs Temp 97.3 F 06/25/22 08:00 Pulse 63 06/25/22 08:00 Resp 20 06/25/22 08:00 BP 136/65 06/25/22 08:00 Pulse Ox 94 06/25/22 08:00 O2 Del Method Room Air 06/25/22 08:00 BMI result Body Mass Index 37.7 Gen: in no acute distress HEENT: sclera anicteric, moist mucus membranes Neck: supple Lungs: clear to auscultation bilaterally Heart: regular rate and rhythm, no murmurs Abd: soft, non-tender, non-distended Ext: no edema Skin: warm/well-perfused Neuro: alert and oriented x3, no focal findings Psych: appropriate affect DS: Data Data Completed and Pending Completed studies during hospitalization [Text1]: Laboratory Results WBC 8.3 X10*3/uL (4.8-10.8) 06/25/22 06:29 RBC 3.98 X10*6/uL (4.20-5.50) L 06/25/22 06:29 Hgb 8.6 g/dl (12.0-16.0) L 06/25/22 06:29 Hct 29.8 % (37.0-47.0) L 06/25/22 06:29 MCV 74.9 fL (80.0-98.0) L 06/25/22 06:29 MCH 21.6 pg (27.0-33.0) L 06/25/22 06:29 MCHC 28.9 g/dl (31.0-35.0) L 06/25/22 06:29 RDW 18.6 % (11.0-16.0) H 06/25/22 06:29 Plt Count 337 X10*3/uL (160-400) 06/25/22 06:29 MPV 10.0 fL (9.4-12.3) 06/25/22 06:29 Immature Gran % (Auto) 0.7 % (0.0-0.4) H 06/24/22 06:03 Neut % (Auto) 64.7 % (45-73) 06/24/22 06:03 Lymph % (Auto) 22.2 % (20-40) 06/24/22 06:03 [place] % (Auto) 8.7 % (2-11) 06/24/22 06:03 Eos % (Auto) 2.8 % (0-4) 06/24/22 06:03 Baso % (Auto) 0.9 % (0-2) 06/24/22 06:03 Lymph # (Auto) 2.3 X10*3/uL (1.2-4.9) 06/24/22 06:03 [place] # (Auto) 0.9 X10*3/uL (0.1-1.2) 06/24/22 06:03 Eos # (Auto) 0.3 X10*3/uL (0.0-0.4) 06/24/22 06:03 Baso # (Auto) 0.1 X10*3/uL (0.0-0.2) 06/24/22 06:03 Abs Immat Gran (auto) 0.07 X10*3/uL (0.00-0.03) H 06/24/22 06:03 Absolute Neuts (auto) 6.6 x10*3/uL (2.0-8.3) 06/24/22 06:03 Absolute Nucleated RBC 0.000 X10*3/uL (0.0-0.012) 06/25/22 06:29 Nucleated RBC % (auto) 0.0 /100WBC (0.0-0.2) 06/25/22 06:29 PT 17.3 SEC (10.0-13.1) H 06/23/22 14:47 INR 1.5 (0.9-1.1) H 06/23/22 14:47 Sodium 143 mmol/L (135-145) 06/25/22 06:29 Potassium 4.4 mmol/L (3.3-5.1) 06/25/22 06:29 Chloride 111 mmol/L (96-108) H 06/25/22 06:29 Carbon Dioxide 26 mmol/L (22-29) 06/25/22 06:29 Anion Gap 10 (12-20) L 06/25/22 06:29 BUN 15 mg/dL (9-16) 06/25/22 06:29 Creatinine 0.89 mg/dL (0.5-1.4) 06/25/22 06:29 Estim Creat Clear Calc 74.5 06/25/22 06:29 Estimated GFR > 60 06/25/22 06:29 Random Glucose 105 mg/dL (60-115) 06/25/22 06:29 Calcium 9.3 mg/dL (8.4-10.2) 06/25/22 06:29 Iron 111 mcg/dL (30-160) 06/23/22 19:41 TIBC 344 mcg/dL (228-428) 06/23/22 19:41 % Saturation 32 % (15-50) 06/23/22 19:41 Unsat Iron Binding 233 ug/dL 06/23/22 19:41 Total Bilirubin 0.5 mg/dL (0.0-1.0) 06/23/22 14:47 AST 12 U/L (5-31) 06/23/22 14:47 ALT 11 U/L (0-31) 06/23/22 14:47 Alkaline Phosphatase 100 U/L (39-117) 06/23/22 14:47 Troponin I High Sens 3.0 ng/L (<3.5-17.0) 06/23/22 19:41 B-Natriuretic Peptide 118 pg/mL (<100) H 06/23/22 14:47 Total Protein 6.3 g/dL (6.5-8.0) L 06/23/22 14:47 Albumin 4.0 g/dL (3.5-5.0) 06/23/22 14:47 Procalcitonin 0.03 ng/mL 06/24/22 06:03 Stool Occult Blood NEGATIVE (NEGATIVE) 06/23/22 15:27 Blood Type O Positive 06/23/22 14:47 Antibody Screen NEGATIVE 06/23/22 14:47 Crossmatch See Detail 06/23/22 14:47 Impressions Chest X-Ray 06/23/22 16:15 IMPRESSION: Some mild bilateral mid to lower lung opacities could represent areas of early infiltrate. Trace effusions cannot be excluded. Cardiac silhouette is not appear pathologically enlarged but is slightly more prominent than previous. This could be due to projection. The hilar structures are also mildly prominent. This could be reactive. I would recommend follow-up study. No evidence for failure Abdomen/Pelvis CT 05/11/23 20:28 IMPRESSION: 1. No acute intra-abdominal process seen. 2. Cholelithiasis without wall thickening. 3. Colonic diverticulosis without diverticulitis. 4. Small hiatal hernia. Fleischner guidelines were followed. Chest CT 06/24/22 10:16 IMPRESSION: No evidence for acute disease in the chest. Stable small pulmonary nodules. Fleischner guidelines were followed. Discharge Plan Discharge Anticipated Discharge Date/Time: 06/25/22 11:22 Patient Disposition: Home, Self-Care Discharge Diagnosis: anemia Referrals: Ranjeet Houston MD [Primary Care Provider] - 1 Week Lemuel Fatima [Physician] - 3-5 Days Discharge Medications: New ferrous sulfate 325 mg (65 mg iron) tablet 325 mg PO DAILY Qty: 30 0RF Continued isosorbide mononitrate 30 mg tablet extended release 24 hr 30 mg PO DAILY metoprolol succinate 25 mg tablet extended release 24 hr 25 mg PO BEDTIME rosuvastatin 10 mg tablet 10 mg PO BEDTIME melatonin 3 mg Tablet 6 mg PO BEDTIME cholecalciferol (vitamin D3) [Vitamin D3] 50 mcg (2,000 unit) Capsule 50 mcg PO BEDTIME omeprazole 20 mg capsule,delayed release(DR/EC) 20 mg PO DAILY sertraline 50 mg tablet 50 mg PO DAILY mecobalamin (vitamin B12) 1,000 mcg tablet,chewable 2,000 mcg PO DAILY lorazepam 1 mg tablet 1 mg PO BEDTIME Held Xarelto 20 mg tablet 20 mg PO DAILY@1700 Hold Instructions: Resume on 06/29/22. lisinopril 40 mg tablet 40 mg PO DAILY Hold Instructions: Resume on 07/02/22. hydrochlorothiazide 12.5 mg tablet 12.5 mg PO DAILY Hold Instructions: Resume on 07/02/22. amlodipine 10 mg tablet 10 mg PO DAILY Hold Instructions: Resume on 07/02/22. Discharge Orders: Discharge Order (Routine); Ordered 06/25/22 Ordered By: Supriya Wheat Diet: Advance to usual diet Activity on Discharge: As tolerated Stand Alone Forms: Patient Portal Discharge page Care Plan Goals: GI evaluation Health Concerns: anemia Plan of Treatment: hold amlodipine and HCTZ and lisionpril until seen by PCP hold Xarelto. after scope, resume Xarelto after discussion with GI. EGD/C-scope on 06/28/[address] Fatima. after scope, start iron Please follow up with your primary care doctor within 1 week. Return to the hospital if you experience recurrent or worsening symptoms. Assessment: See Discharge Summary.
--- NOTE | 2022-06-25 11:41 | MHC.CM.PN ---
D/C order for home self care. CM acknowledge.
--- NOTE | 2022-06-25 12:23 | PC.NURSE ---
Patient A&OX4 neurologically intact. Lung sounds clear denies shortness of breath or chest pain. Per patient breathing improved since admission. Able to independently ambulate with steady gait no shortness of breath during ambulation. Discharged to home approximately 1220 provided with education on follow up and medications questions addressed prior to discharge pt able to teach back follow up and medications. Transported off unit in wheelchair to lobby with staff
== END 2022-06-25 12:23 | disposition home or self-care (01) ==
LOC: HO.ED 18:05 → HO.EDOVER 19:20 → HO.IMC 19:36
PROVIDERS: Physician Assistant; Admitting Provider Student in an Organized Health Care Education/Training Program; Emergency Provider Emergency Medicine Emergency Medical Services; PCP Internal Medicine; Visit Provider Family Medicine
DX: D50.9 Iron deficiency anemia, unspecified (principal); R06.02 Shortness of breath; E87.5 Hyperkalemia; I10 Essential (primary) hypertension; E78.5 Hyperlipidemia, unspecified; I48.0 Paroxysmal atrial fibrillation; K21.9 Gastro-esophageal reflux disease without esophagitis; G47.00 Insomnia, unspecified; K58.0 Irritable bowel syndrome with diarrhea; F12.90 Cannabis use, unspecified, uncomplicated; Z87.891 Personal history of nicotine dependence; Z79.01 Long term (current) use of anticoagulants; Z79.82 Long term (current) use of aspirin; Z79.02 Long term (current) use of antithrombotics/antiplatelets; Z79.899 Other long term (current) drug therapy
CPT/HCPCS: 36415; 36430; 71046; 71250; 74177; 80048; 80053; 82272; 83540; 83880; 84145; 84484; 85025; 85027; 85610; 86850; 86900; 86901; 86920; 93005; 99222; 99285; P9016; Q9967

== ENCOUNTER 2022-06-28 11:49 | Day surgery (SDC) | payer MEDICARE, SELFPAY ==
--- NOTE | 2022-06-27 11:09 | P.CONAN_ITS ---
HPI - Anesthesia Eval Consult details Narrative: 67yo F for Upper Endoscopy and Colonoscopy [facility] Active Problems Active Problems: All Active Problems (Updated 06/25/22 @ 11:30 by Supriya Wheat MD) HTN (hypertension) (Acute) Hyperkalemia (Acute) Microcytic anemia (Acute) Chest pain (Acute) Chronic anticoagulation (Acute) Osteoarthritis of right knee (Acute) Fracture of fifth metatarsal bone of left foot (Acute) Osteoarthritis of carpometacarpal joint of left thumb (Acute) Past Medical History Medical History (Updated 06/25/22 @ 11:30 by Supriya Wheat MD) Acid reflux Anxiety Arthritis High cholesterol HTN (hypertension) Osteoporosis Surgical History Surgical History H/O hernia repair H/O right breast biopsy History of tubal ligation Social History Social History Household Members: Significant Other Housing: House Do you presently have visiting nurse or other home services: No Alcohol intake: current Alcohol intake frequency: holidays/special occasions only Patient Tobacco Use Status: Never used Tobacco Years Smoked: quit 10 years ago Substance Use Type: Opiates service: No Current occupational status: retired Current occupation: right handed Meds Allergies Allergy/AdvReac Type Severity Reaction Status Date / Time No Known Allergies Allergy Unverified 07/03/20 11:08 [No Known Allergies*] oxycodone AdvReac Unknown itching Uncoded 07/03/20 11:08 Home Medications Medication Instructions Recorded Confirmed Last Taken Type amlodipine 10 mg tablet 10 mg PO DAILY 07/03/20 06/23/22 06/23/22 History hydrochlorothiazide 12.5 mg tablet 12.5 mg PO DAILY 07/03/20 06/23/22 06/23/22 History lisinopril 40 mg tablet 40 mg PO DAILY 07/03/20 06/23/22 06/23/22 History lorazepam 1 mg tablet 1 mg PO BEDTIME 07/03/20 06/23/22 06/22/22 History mecobalamin (vitamin B12) 1,000 2,000 mcg PO DAILY 07/03/20 06/23/22 06/23/22 History mcg chewable tablet omeprazole 20 mg capsule,delayed 20 mg PO DAILY 07/03/20 06/23/22 06/23/22 History release sertraline 50 mg tablet 50 mg PO DAILY 07/03/20 06/23/22 06/23/22 History cholecalciferol (vitamin D3) 50 50 mcg PO BEDTIME 06/23/22 06/23/22 06/22/22 History mcg (2,000 unit) capsule (Vitamin D3) isosorbide mononitrate 30 mg 30 mg PO DAILY 06/23/22 06/23/22 06/23/22 History tablet,extended release 24 hr melatonin 3 mg tablet 6 mg PO BEDTIME 06/23/22 06/23/22 06/22/22 History metoprolol succinate 25 mg 25 mg PO BEDTIME 06/23/22 06/23/22 06/22/22 History tablet,extended release 24 hr rivaroxaban 20 mg tablet (Xarelto) 20 mg PO DAILY@1700 06/23/22 06/23/22 06/22/22 History rosuvastatin 10 mg tablet 10 mg PO BEDTIME 06/23/22 06/23/22 06/22/22 History Exam Exam Date and Time: June 27, 2022 110 Pertinent Lab Results Pertinent Lab Results: Laboratory Tests 06/25/22 06/25/22 06:29 06:29 WBC 8.3 Hgb 8.6 L Hct 29.8 L Plt Count 337 Sodium 143 Potassium 4.4 Chloride 111 H Carbon Dioxide 26 BUN 15 Creatinine 0.89 Assessment and Plan Assessment Anesthesia Assessment: Chart Reviewed
[2022-06-28 12:30] VITALS: BMI 40.5
[2022-06-28 12:46] VITALS: BMI 35.8
[2022-06-28 12:49] VITALS: BP 140/54; PULSE 61; RESP 18; TEMP 36.6; O2SAT 97
[2022-06-28] MEDS: Lactated Ringers 1,000 ML 100 ML IVCONT (13:13)
--- NOTE | 2022-06-28 14:06 | MHC.SHP ---
Pre-Procedural Eval Section A Date of Service: 06/28/22 The patient is an INPATIENT: No Changes since office visit: No Cold of Flu in the past 2 weeks, No New Medical Problems, No Changes in Medication and No Patient answered all questions The History & Physical has been completed within 30 days and I have reviewed it.: Yes Section B Chief Complaint: anemia Allergies: Allergies Allergy/AdvReac Type Severity Reaction Status Date / Time No Known Allergies Allergy Unverified 07/03/20 11:08 [No Known Allergies*] oxycodone AdvReac Unknown itching Uncoded 07/03/20 11:08 Plan I have reviewed the history and physical and performed a pertinent physical examination on my patient. No changes have occurred unless specified. Time Spent With Patient Time: Total time managing care of this patient today ____ minutes.
[2022-06-28 14:58] VITALS: BP 98/47; PULSE 57; RESP 20; TEMP 36.3; O2SAT 98
--- NOTE | 2022-06-28 14:58 | PM.OP ---
Brief Operative Note Date of Service: 06/28/22 Pre-op diagnosis: cristina Post-op diagnosis: same Procedure: egd colon Surgeon: Lemuel Fatima Anesthesia: MAC Was an Stitch Bonding Machine Drawer In used for this Procedure?: No Estimated blood loss (mL): 2 Pathology: other Condition: stable Disposition: PACU
[2022-06-28 15:13] VITALS: BP 106/57; PULSE 57; RESP 16; TEMP 36.5; O2SAT 98
--- NOTE | 2022-06-28 22:06 | OP_ITS ---
DATE OF SERVICE: 06/28/2022 SURGEON: Lemuel Fatima MD INDICATIONS: Iron-deficiency anemia. PREOPERATIVE DIAGNOSIS: POSTOPERATIVE DIAGNOSIS: PROCEDURE PERFORMED: ESTIMATED BLOOD LOSS: COMPLICATIONS: ANESTHESIA: Monitored anesthesia care. ASSISTANTS: SPECIMENS: PROCEDURES PERFORMED: Upper endoscopy with biopsy. Colonoscopy to the terminal ileum. DESCRIPTION OF PROCEDURE: A history and physical were performed. The risks and benefits of the procedure were explained to the patient. Informed consent was obtained. The patient was placed in the left lateral decubitus position. The Olympus video gastroscope was introduced into the esophagus, stomach, and duodenum. Examination was performed and the scope was removed. She was repositioned for colonoscopy. Digital rectal exam was performed was found to be normal. The Olympus pediatric video colonoscope was introduced into the rectum and advanced to the cecum. The cecum was identified by transillumination, palpation, and identification of ileocecal valve. Examination was performed, and the scope was removed. She tolerated both procedures well and was returned to recovery in stable condition. FINDINGS: Upper endoscopy: 1. Esophagus, the esophagus showed a sliding hiatal hernia. There was no esophagitis. Biopsies were obtained from the EG junction. 2. Stomach: On the gastric aspect of the EG junction was a 5 mm polyp, which was biopsied. Biopsies were also obtained from the antrum to evaluate for H. pylori. 3. Duodenum: The bulb and 2nd portion were normal. Random duodenal biopsies were obtained. Colonoscopy: The terminal ileum was explored for approximately 25 cm and appeared normal. No polyps were identified. The visualized colonic mucosa was within normal limits without evidence of masses or ulcers. There was extensive sigmoid diverticulosis with scattered diverticula throughout the remainder of the colon. Retroflexed examination showed moderate-sized internal hemorrhoids. IMPRESSION: 1. Gastric polyp. 2. Normal colonoscopy. RECOMMENDATIONS: 1. Follow up the biopsy results. 2. Repeat colonoscopy is recommended in 10 years for average risk individuals. MD JELANI Orr/RUPAL / [id number]
== END 2022-06-28 15:54 | disposition home or self-care (01) ==
PROVIDERS: PCP Internal Medicine; Visit Provider Internal Medicine Gastroenterology
PROC: (CPT 45378; principal; 2022-06-28 13:00)
DX: D50.9 Iron deficiency anemia, unspecified (principal); K57.30 Diverticulosis of large intestine without perforation or abscess without bleeding; K64.8 Other hemorrhoids; K31.7 Polyp of stomach and duodenum; K44.9 Diaphragmatic hernia without obstruction or gangrene; K21.9 Gastro-esophageal reflux disease without esophagitis; Z83.71 Family history of colonic polyps; I10 Essential (primary) hypertension; Z88.5 Allergy status to narcotic agent
CPT/HCPCS: 45378; 43239; 88305; 88342

== ENCOUNTER 2022-07-20 13:01 | Outpatient (REF) | payer MEDICARE, SELFPAY ==
[2022-07-20 13:13] LABS: MANUAL DIFF FLAG NO
[2022-07-20 13:34] LABS: Basophils Absolute Auto 0.1 X10*3/uL (0.0-0.2); Basophils Percent Auto 1.3 % (0-2); Eosinophils Absolute Auto 0.1 X10*3/uL (0.0-0.4); Eosinophils Percent Auto 1.8 % (0-4); Hematocrit 35.1 % (37.0-47.0); Hemoglobin 10.5 g/dl (12.0-16.0); Imm Gran Abs Auto 0.04 X10*3/uL (0.00-0.03); Imm Gran Pct Auto 0.5 % (0.0-0.4); Lymphocytes Absolute Auto 1.8 X10*3/uL (1.2-4.9); Lymphocytes Percent Auto 23.6 % (20-40); Mean Corpuscular HGB Conc 29.9 g/dl (31.0-35.0); Mean Corpuscular Hemoglobin 25.4 pg (27.0-33.0); Mean Platelet Volume 10.7 fL (9.4-12.3); Monocytes Absolute Auto 0.6 X10*3/uL (0.1-1.2); Monocytes Percent Auto 7.1 % (2-11); Neutrophils Absolute Auto 5.1 x10*3/uL (2.0-8.3); Neutrophils Percent Auto 65.7 % (45-73); Platelet Count 325 X10*3/uL (160-400); Red Blood Count 4.13 X10*6/uL (4.20-5.50); White Blood Count 7.7 X10*3/uL (4.8-10.8)
[2022-07-20 14:06] LABS: Iron 49 mcg/dL (30-160); Percent Iron Saturation 17 % (15-50); Total Iron Binding Capacity 295 mcg/dL (228-428); Unsaturated Iron Binding 246 ug/dL
[2022-07-20 14:22] LABS: Ferritin 32 ng/mL (10-250)
== END 2022-07-20 13:02 | disposition home or self-care (01) ==
LOC: HO.LAB 13:01
PROVIDERS: Absent Provider Physician Assistant; PCP Internal Medicine; Visit Provider Internal Medicine Gastroenterology
DX: D50.0 Iron deficiency anemia secondary to blood loss (chronic) (principal); D50.9 Iron deficiency anemia, unspecified
CPT/HCPCS: 36415; 82728; 83540; 85025

== ENCOUNTER 2022-08-25 13:59 | Outpatient (REF) | payer MEDICARE, SELFPAY ==
[2022-08-25 14:34] LABS: MANUAL DIFF FLAG NO
[2022-08-25 15:09] LABS: Basophils Absolute Auto 0.1 X10*3/uL (0.0-0.2); Basophils Percent Auto 1.3 % (0-2); Eosinophils Absolute Auto 0.2 X10*3/uL (0.0-0.4); Eosinophils Percent Auto 2.2 % (0-4); Hematocrit 38.5 % (37.0-47.0); Hemoglobin 11.8 g/dl (12.0-16.0); Imm Gran Abs Auto 0.03 X10*3/uL (0.00-0.03); Imm Gran Pct Auto 0.3 % (0.0-0.4); Mean Corpuscular HGB Conc 30.6 g/dl (31.0-35.0); Mean Corpuscular Hemoglobin 27.9 pg (27.0-33.0); Monocytes Absolute Auto 0.7 X10*3/uL (0.1-1.2); Monocytes Percent Auto 8.4 % (2-11); Neutrophils Absolute Auto 5.6 x10*3/uL (2.0-8.3); Neutrophils Percent Auto 64.8 % (45-73); Platelet Count 284 X10*3/uL (160-400); Red Blood Count 4.23 X10*6/uL (4.20-5.50); Red Cell Distribution Width 19.9 % (11.0-16.0); White Blood Count 8.7 X10*3/uL (4.8-10.8)
[2022-08-25 16:05] LABS: Iron 64 mcg/dL (30-160); Percent Iron Saturation 22 % (15-50); Total Iron Binding Capacity 291 mcg/dL (228-428); Unsaturated Iron Binding 227 ug/dL
== END 2022-08-25 14:00 | disposition home or self-care (01) ==
LOC: HO.LABR 13:59
PROVIDERS: PCP Internal Medicine; Visit Provider Physician Assistant
DX: D50.0 Iron deficiency anemia secondary to blood loss (chronic) (principal)
CPT/HCPCS: 36415; 83540; 85025

== ENCOUNTER 2022-09-28 11:37 | Outpatient (REF) | payer MEDICARE, SELFPAY ==
[2022-09-28 13:01] LABS: MANUAL DIFF FLAG NO
[2022-09-28 13:18] LABS: Basophils Absolute Auto 0.1 X10*3/uL (0.0-0.2); Basophils Percent Auto 1.4 % (0-2); Eosinophils Absolute Auto 0.2 X10*3/uL (0.0-0.4); Eosinophils Percent Auto 3.1 % (0-4); Hematocrit 39.1 % (37.0-47.0); Hemoglobin 12.4 g/dl (12.0-16.0); Imm Gran Pct Auto 1.5 % (0.0-0.4); Lymphocytes Absolute Auto 1.7 X10*3/uL (1.2-4.9); Lymphocytes Percent Auto 26.3 % (20-40); Mean Corpuscular HGB Conc 31.7 g/dl (31.0-35.0); Mean Corpuscular Hemoglobin 29.1 pg (27.0-33.0); Mean Corpuscular Volume 91.8 fL (80.0-98.0); Mean Platelet Volume 11.1 fL (9.4-12.3); Monocytes Absolute Auto 0.4 X10*3/uL (0.1-1.2); Neutrophils Absolute Auto 4.1 x10*3/uL (2.0-8.3); Neutrophils Percent Auto 61.7 % (45-73); Platelet Count 288 X10*3/uL (160-400); Red Blood Count 4.26 X10*6/uL (4.20-5.50); Red Cell Distribution Width 14.3 % (11.0-16.0); White Blood Count 6.6 X10*3/uL (4.8-10.8)
[2022-09-28 14:02] LABS: Iron 47 mcg/dL (30-160); Percent Iron Saturation 17 % (15-50); Total Iron Binding Capacity 278 mcg/dL (228-428); Unsaturated Iron Binding 231 ug/dL
[2022-09-28 14:05] LABS: Ferritin 42 ng/mL (10-250)
== END 2022-09-28 11:38 | disposition home or self-care (01) ==
LOC: HO.MANLDS 11:37
PROVIDERS: Visit Provider Physician Assistant
DX: D50.0 Iron deficiency anemia secondary to blood loss (chronic) (principal)
CPT/HCPCS: 36415; 82728; 83540; 85025

== ENCOUNTER 2022-11-01 13:32 | Outpatient (REF) | payer MEDICARE, SELFPAY ==
[2022-11-01 18:01] LABS: MANUAL DIFF FLAG NO
[2022-11-01 18:07] LABS: Basophils Absolute Auto 0.1 X10*3/uL (0.0-0.2); Eosinophils Absolute Auto 0.1 X10*3/uL (0.0-0.4); Eosinophils Percent Auto 1.6 % (0-4); Hematocrit 39.7 % (37.0-47.0); Hemoglobin 12.8 g/dl (12.0-16.0); Imm Gran Abs Auto 0.03 X10*3/uL (0.00-0.03); Imm Gran Pct Auto 0.3 % (0.0-0.4); Lymphocytes Absolute Auto 1.9 X10*3/uL (1.2-4.9); Lymphocytes Percent Auto 21.1 % (20-40); Mean Corpuscular HGB Conc 32.2 g/dl (31.0-35.0); Mean Corpuscular Hemoglobin 30.5 pg (27.0-33.0); Mean Corpuscular Volume 94.5 fL (80.0-98.0); Mean Platelet Volume 11.7 fL (9.4-12.3); Monocytes Absolute Auto 0.6 X10*3/uL (0.1-1.2); Monocytes Percent Auto 6.6 % (2-11); Neutrophils Absolute Auto 6.2 x10*3/uL (2.0-8.3); Neutrophils Percent Auto 69.4 % (45-73); Platelet Count 266 X10*3/uL (160-400); Red Cell Distribution Width 13.1 % (11.0-16.0); White Blood Count 8.9 X10*3/uL (4.8-10.8)
[2022-11-01 18:21] LABS: Iron 78 mcg/dL (30-160); Percent Iron Saturation 29 % (15-50); Total Iron Binding Capacity 271 mcg/dL (228-428); Unsaturated Iron Binding 193 ug/dL
[2022-11-01 18:36] LABS: Ferritin 55 ng/mL (10-250)
== END 2022-11-01 13:33 | disposition home or self-care (01) ==
LOC: HO.MANLDS 13:32
PROVIDERS: Visit Provider Physician Assistant
DX: D50.0 Iron deficiency anemia secondary to blood loss (chronic) (principal)
CPT/HCPCS: 36415; 82728; 83540; 85025

== ENCOUNTER 2023-01-02 13:06 | Outpatient (REF) | payer MEDICARE, SELFPAY ==
[2023-01-02 13:20] LABS: Appearance Urine Clear; Color Urine Yellow; Glucose Urine UA Negative (Negative); Leukocyte Esterase Urine Small (1+) (Negative); Nitrite Urine Negative (Negative); Specific Gravity - Urine 1.015 (1.005-1.025); UMIC TRIGGER UACC YES; Urine Blood Negative (Negative); Urine Ketones Negative (Negative); Urine Protein Negative (Neg-Trace)
[2023-01-02 13:27] LABS: Bacteria Urine None Seen (None Seen); Hyaline Casts Urine 0-2 /LPF (0-2); RBC Urine 0-2 /HPF (0-2); UACC Culture Trigger YES
== END 2023-01-02 13:07 | disposition home or self-care (01) ==
LOC: HO.LNP 13:06
PROVIDERS: Visit Provider Physician Assistant
DX: Z00.00 Encounter for general adult medical examination without abnormal findings (principal); R82.90 Unspecified abnormal findings in urine
CPT/HCPCS: 81001; 87086

== ENCOUNTER 2023-05-31 13:37 | Outpatient (REF) | payer MEDICARE, SELFPAY ==
[2023-05-31 17:52] LABS: MANUAL DIFF FLAG NO
[2023-05-31 18:05] LABS: Basophils Absolute Auto 0.1 X10*3/uL (0.0-0.2); Eosinophils Absolute Auto 0.1 X10*3/uL (0.0-0.4); Hematocrit 39.9 % (37.0-47.0); Hemoglobin 12.7 g/dl (12.0-16.0); Imm Gran Abs Auto 0.04 X10*3/uL (0.00-0.03); Imm Gran Pct Auto 0.6 % (0.0-0.4); Lymphocytes Absolute Auto 1.6 X10*3/uL (1.2-4.9); Lymphocytes Percent Auto 22.1 % (20-40); Mean Corpuscular HGB Conc 31.8 g/dl (31.0-35.0); Mean Corpuscular Hemoglobin 30.7 pg (27.0-33.0); Mean Corpuscular Volume 96.4 fL (80.0-98.0); Mean Platelet Volume 11.2 fL (9.4-12.3); Monocytes Absolute Auto 0.5 X10*3/uL (0.1-1.2); Monocytes Percent Auto 6.6 % (2-11); Neutrophils Absolute Auto 4.8 x10*3/uL (2.0-8.3); Neutrophils Percent Auto 67.7 % (45-73); Platelet Count 261 X10*3/uL (160-400); Red Blood Count 4.14 X10*6/uL (4.20-5.50); Red Cell Distribution Width 13.4 % (11.0-16.0); White Blood Count 7.1 X10*3/uL (4.8-10.8)
[2023-05-31 18:43] LABS: Iron 61 mcg/dL (30-160); Percent Iron Saturation 23 % (15-50); Total Iron Binding Capacity 260 mcg/dL (228-428); Unsaturated Iron Binding 199 ug/dL
[2023-05-31 18:46] LABS: Ferritin 74 ng/mL (10-250)
== END 2023-05-31 13:38 | disposition home or self-care (01) ==
LOC: HO.MANLDS 13:37
PROVIDERS: Physician Assistant; Visit Provider Internal Medicine
DX: D50.0 Iron deficiency anemia secondary to blood loss (chronic) (principal)
CPT/HCPCS: 36415; 82728; 83540; 85025

== ENCOUNTER 2023-06-14 12:48 | Outpatient (REF) | payer MEDICARE, SELFPAY ==
--- NOTE | ~2023-06-14 | MM_ITS ---
EXAMINATION: MM SCREENING DIGITAL BREAST TOMOSYNTHESIS, BILATERAL CLINICAL INFORMATION: Screening. Asymptomatic. COMPARISON: Mammography: 06/02/2022, 05/25/2021, 05/13/2020, and studies dating back to 2013. TECHNIQUE: Digital breast tomosynthesis is performed in both the craniocaudal and mediolateral oblique views along with computer-aided detection (CAD). Synthesized 2D images are generated from the tomosynthesis. FINDINGS: There are scattered areas of fibroglandular density (ACR BI-RADS breast composition Category b). There are no suspicious masses, suspicious grouped calcifications, or areas of architectural distortion in either breast. 3 circumscribed oval masses in the anterior right breast are stable from prior exams and benign. The overall parenchymal pattern is stable from prior exams. There are no skin or axillary abnormalities. MM/MM tomosynthesis screening BI IMPRESSION: -No mammographic evidence of malignancy. -Stable benign findings. ASSESSMENT: BI-RADS BI-RADS 2 - Benign Findings RECOMMENDATION: Routine annual mammography screening. 1 year F/U This examination should not preclude the clinical evaluation of a suspicious palpable abnormality. This patient's information was entered into a reminder system with a target due date for their next mammogram.
== END 2023-06-14 12:49 | disposition home or self-care (01) ==
LOC: HO.MAMMO 12:48
PROVIDERS: PCP Internal Medicine; Visit Provider Physician Assistant
DX: Z12.31 Encounter for screening mammogram for malignant neoplasm of breast (principal)
CPT/HCPCS: 77063; 77067

== ENCOUNTER → 2023-06-14 13:00 | Outpatient (BNV) | payer MEDICARE, SELFPAY | PROVIDERS: PCP Internal Medicine; Visit Provider Radiology Diagnostic Radiology | DX: Z12.31 Encounter for screening mammogram for malignant neoplasm of breast (principal) | CPT/HCPCS: 77063; 77067 ==

== ENCOUNTER → 2023-09-21 14:41 | Outpatient (BNVA) | payer MEDICARE, SELFPAY | PROVIDERS: PCP Internal Medicine; Visit Provider Advanced Practice Midwife ==

== ENCOUNTER 2023-10-27 10:53 | Outpatient (AMB) | payer MEDICARE, SELFPAY ==
--- NOTE | 2023-10-27 07:52 | A.OFFVIS_ITS ---
Intake Visit Reasons: Former Smoker Allergies No Known Allergies [No Known Allergies*] Allergy (Unverified 07/03/20 11:08) oxycodone Adverse Reaction (Unknown, Uncoded 07/03/20 11:08) itching HPI HPI Former Smoker: Details: Initial visit for this 68yo smoker with a 30PYH. Patient started smoking at age 11 for 32 years at 1ppd. Quit for period of 8 years then restarted and quit again in 2011. . Does smoke marijuana to help her sleep. Reports second hand smoke exposure -growing up whole family smoked. Denies exposure to chemicals or substances like asbestos. . Known family history of lung cancer. Brother, sister. Denies personal history of cancers. . Denies chest CT in last year. Chest CT done 06/24/22 noted stable nodules - largest was 3mm. . Denies recent travel outside the [place]. Denies recent respiratory illness or recent hospitalization for respiratory issues. Reports testing positive for COVID. Admits receiving COVID Vaccine. x3. . Denies fever, chills, new/worsening cough, hemoptysis, hoarseness or dysphagia. Denies significant chest pain, significant dyspnea or unintentional weight loss. Patient Lung Cancer Screening Questionnaire reviewed with patient by provider. . Shared Decision Making Completed. Patient meets criteria. Discussed in detail with patient, the risk vs benefit of LDCT screening. Patient consents to proceed with scan. Discussed and encouraged continued smoking cessation. [facility] Medical History (Updated 10/27/23 @ 11:16 by Tammy Anderson PA-C) HTN (hypertension) High cholesterol Acid reflux Personal history of nicotine dependence Osteopenia Arthritis Anxiety Surgical History (Updated 05/23/23 @ 13:30 by Tammy Anderson PA-C) History of right breast biopsy History of hysteroscopy History of hernia repair History of tubal ligation Family History Brother Lung cancer Sister Lung cancer Social History (Updated 10/27/23 @ 11:17 by Tammy Anderson PA-C) Household Members: Significant Other Housing: House Do you presently have visiting nurse or other home services: No Alcohol intake: current Alcohol intake frequency: does not drink Patient Tobacco Use Status: Former Tobacco user Years Smoked: (onset 11yo, 1ppd x 32yrs, 30pyh, quit 2011, uses marijuana) Substance Use Type: Opiates service: No Current occupational status: retired Current occupation: right handed Assessment & Plan Assessment & Plan (1) Personal history of nicotine dependence: Comment: (former smoker - onset 11yo, 1ppd x 32yrs, 30pyh, quit 2011, uses marijuana, +fam hx lung ca) Code(s): Z87.891 - Personal history of nicotine dependence Category: Medical Plan: - SDM visit completed today in office. - Patient meets criteria for LDCT for lung cancer screening purposes and is asymptomatic. - Smoking cessation counseling offered. Patients can always call [phone]. - Will arrange for a LDCT scan of the chest for screening purposes at [facility]. - Risks, benefits, and alternatives were discussed in detail and the patient agrees to proceed. - Risks discussed include but are not limited to: radiation exposure, anxiety during testing and while awaiting results, false negatives, false positives and possibility of additional intervention such as further imaging or surgical procedures for benign disease. - Benefits are obviously detection of lung cancer at an early stage which can lead to improved outcomes. - Discussed the importance of screening program compliance with adherence to yearly LDCT scan as scheduled - or sooner interval scans for personalized screening regimen. - Discussed follow up plan. Our office will send a letter discussing results and if needed set up phone call and office visit based on CT findings. - Patient educated on results categorization and the management decisions for suspicious findings potentially found on the screening LDCT scan. Any patient with a Lung RADS score of 3 or 4 will be reviewed by a multidisciplinary team at [facility] to form a plan of action in regards to scan findings. - If further work up is warranted for a suspicious lung finding this will be followed by the Lung Cancer Screening program in conjunction with the Thoracic Surgery Department at [facility]. - A copy of the office note and LDCT will be sent to the patient's PCP - as well as documentation on any associated further plans of care. - Incidental findings on LDCT are the PCP's responsibility. These findings are indicated with an S finding on the LDCT Assessment. A note discussing the findings will be sent to the PCP who is then responsible for further management. - All questions answered.? Coding Level of Care Code Lung Cancer Screening G0296 Diagnoses Personal history of nicotine dependence Z87.891
== END 2023-10-27 11:13 | disposition home or self-care (01) ==
PROVIDERS: PCP Internal Medicine; Visit Provider Physician Assistant Medical
DX: Z87.891 Personal history of nicotine dependence (principal)
CPT/HCPCS: G0296

== ENCOUNTER 2023-10-27 11:14 | Outpatient (REF) | payer MEDICARE, SELFPAY ==
--- NOTE | ~2023-10-27 | CT_ITS ---
EXAMINATION: CT LOW-DOSE SCREENING CHEST WITHOUT CONTRAST CLINICAL INFORMATION: Personal history of nicotine dependence. The patient has a 35 pack-year history of smoking, having quit 12 years ago. COMPARISON: Multiple prior CT scans of the chest, the most recent of which is dated 06/24/2022 and the most remote of which is dated 11/26/2019. TECHNIQUE: Multidetector volumetric CT imaging of the chest is performed on a Siemens SOMATOM Definition scanner without contrast using low dose technique. Additional 2D coronal and sagittal reformatted images and axial 3D maximum intensity projection (MIP) images are generated on the CT workstation. This CT examination was performed using dose optimization techniques as appropriate, variously including the following: *Automated exposure control. *Adjustment of mA and/or kV according to patient size (this includes techniques or standardized protocols for targeted exams where dose is matched to indication/reason for exam; i.e. extremities or head). *Use of iterative reconstruction technique. TOTAL EXAM DLP: 80 mGy-cm. CTDIvol: 2.35 mGy. FINDINGS: PULMONARY NODULES: No suspicious pulmonary nodules. LUNGS: Lungs bilaterally symmetrically expanded. No focal lung nodule or mass. No effusion or pneumothorax. Central airways patent. MEDIASTINUM: No mediastinal, hilar or axillary adenopathy or free fluid collection. CORONARY ARTERY CALCIFICATION: None visualized on this study. THYROID GLAND: Unremarkable to the extent seen. CARDIOVASCULAR STRUCTURES: Aortic and heart size normal. No pericardial effusion. CHEST WALL/AXILLA: Unremarkable. UPPER ABDOMEN: Included portions of the solid organs in the upper abdomen unremarkable on noncontrast imaging. OSSEOUS STRUCTURES: No suspicious focal findings. CT/CT lung screening IMPRESSION: No findings seen suspicious for malignancy. ASSESSMENT: 1. Lung-RADS Category 1: Negative. There are no nodules or there are definitely benign nodules. N/A. 2. Lung-RADS Category S: Negative. There are no clinically significant or potentially clinically significant findings not related to the lungs requiring urgent additional evaluation. RECOMMENDATION: Continued routine annual low-dose CT lung screening in 1 year is recommended. An order for CT CHEST LOW DOSE CANCER SCREENING ([id number]) can be placed.. Electronically signed by: Moris Hale MD 12/27/2023 12:03 AM [facility]
== END 2023-10-27 11:15 | disposition home or self-care (01) ==
LOC: HO.CT 11:14
PROVIDERS: PCP Internal Medicine; Visit Provider Physician Assistant Medical
DX: Z12.2 Encounter for screening for malignant neoplasm of respiratory organs (principal); Z87.891 Personal history of nicotine dependence
CPT/HCPCS: 71271; G0296

== ENCOUNTER 2023-11-23 14:26 | Outpatient (REF) | payer MEDICARE, SELFPAY ==
--- NOTE | ~2023-11-23 | CT_ITS ---
EXAMINATION: CT ANGIOGRAPHY ABDOMEN AND PELVIS WITHOUT AND WITH CONTRAST CLINICAL INFORMATION: ABD AORTIC ANEURYSM COMPARISON: Abdominal aortic aneurysm TECHNIQUE: Initial noncontrast localizing pump room operator images were obtained. A timing bolus at the level of the celiac artery was calculated. Subsequently, arterial phase multidetector volumetric imaging was performed through the abdomen and pelvis following the administration of 80 mL Omnipaque 350 intravenous contrast. No contrast reaction reported. Sagittal and coronal reformatted images were obtained on the technologist workstation. After extensive post-processing on a dedicated 3-D workstation, 3-D reformatted images were uploaded to PACS and reviewed as well. This CT examination was performed using dose optimization techniques as appropriate, variously including the following: *Automated exposure control *Adjustment of mA and/or kV according to patient size (this includes techniques or standardized protocols for targeted exams where dose is matched to indication/reason for exam; i.e. extremities or head) *Use of iterative reconstruction technique DLP: 390 mGy-cm FINDINGS: VASCULAR FINDINGS: Aorta: Aneurysmal distal abdominal aortic aneurysm measuring 23 mm. No dissection. No penetrating atheromatous ulcer. Mesenteric Arteries: Celiac artery is patent. Superior mesenteric artery patent. Inferior mesenteric artery patent. Renal arteries: Single renal arteries bilaterally. Renal arteries are patent and without stenosis or other vascular anomaly. Iliac arteries: Borderline aneurysmal left common iliac artery. Iliofemoral vessels are patent. NONVASCULAR: Lung Bases: The visualized lung bases are clear. Liver: Homogeneous in attenuation. Normal in size. Gallbladder: Noninflamed. Biliary System: No intrahepatic or extrahepatic biliary dilation. Pancreas: Homogeneous in attenuation. Spleen: Normal in size. Genitourinary: Bilateral kidneys demonstrate symmetric enhancement. Right lower pole exophytic simple renal cyst measuring 4.1 cm; no follow-up needed. No perinephric fluid collection. No renal calculi. No hydroureteronephrosis. Adrenal Glands: Unremarkable. Reproductive: Uterus and and bilateral adnexa are unremarkable. Gastrointestinal: The visualized alimentary tract is normal in course. Diverticular disease of the sigmoid colon without diverticulitis. No evidence of obstruction. Appendix: The appendix is seen in its entirety and is unremarkable. Peritoneum: No pneumoperitoneum. No intra-abdominal fluid collection. Lymph Nodes: No pathologically enlarged abdominal or pelvic lymph nodes. Soft Tissues/Musculoskeletal: Degenerative changes at L5-S1. No acute fractures or focal osseous lesions. CT/CT angio abdomen pelvis IMPRESSION: VASCULAR FINDINGS: 1. Distal abdominal aortic fusiform aneurysm measuring up to 23 mm. No dissection. 2. Borderline proximal common iliac artery measuring 19 NONVASCULAR FINDINGS: 1. No acute pathology of the abdomen or pelvis. 2. Sigmoid diverticular disease without diverticulitis. Fleischner guidelines were followed. Electronically signed by: Parth Ulrich DO 12/02/2023 03:43 PM EDT
[2023-11-23] MEDS: iohexoL 350 MG/ML 100 ML INFUS..BTL IV (15:06)
[2023-11-24 08:22] LABS: Creatinine POC 0.8 mg/dL (0.5-1.4); GFR POC > 60
== END 2023-11-23 14:27 | disposition home or self-care (01) ==
LOC: HO.CT 14:26
PROVIDERS: PCP Internal Medicine; Visit Provider Internal Medicine
DX: I71.40 Abdominal aortic aneurysm, without rupture, unspecified (principal)
CPT/HCPCS: 74174; 82565; Q9967

== ENCOUNTER 2023-12-15 10:23 | Outpatient (REF) | payer MEDICARE, SELFPAY ==
[2023-12-15 13:21] LABS: MANUAL DIFF FLAG NO
[2023-12-15 13:39] LABS: Basophils Absolute Auto 0.1 X10*3/uL (0.0-0.2); Basophils Percent Auto 1.1 % (0-2); Eosinophils Absolute Auto 0.2 X10*3/uL (0.0-0.4); Eosinophils Percent Auto 3.4 % (0-4); Hematocrit 39.1 % (37.0-47.0); Hemoglobin 12.6 g/dl (12.0-16.0); Imm Gran Abs Auto 0.05 X10*3/uL (0.00-0.03); Imm Gran Pct Auto 0.7 % (0.0-0.4); Lymphocytes Absolute Auto 1.8 X10*3/uL (1.2-4.9); Lymphocytes Percent Auto 25.1 % (20-40); Mean Corpuscular HGB Conc 32.2 g/dl (31.0-35.0); Mean Corpuscular Hemoglobin 30.7 pg (27.0-33.0); Mean Corpuscular Volume 95.4 fL (80.0-98.0); Mean Platelet Volume 11.4 fL (9.4-12.3); Monocytes Absolute Auto 0.5 X10*3/uL (0.1-1.2); Monocytes Percent Auto 7.1 % (2-11); Neutrophils Absolute Auto 4.4 x10*3/uL (2.0-8.3); Neutrophils Percent Auto 62.6 % (45-73); Platelet Count 252 X10*3/uL (160-400); Red Cell Distribution Width 12.9 % (11.0-16.0)
[2023-12-15 14:02] LABS: Estimated Average Glucose 108 mg/dL; Hemoglobin A1C 116.2566 umol/L; Hemoglobin A1c % 5.4 % (<6.0); Total Hemoglobin (HGBA1C) 3311.4701 umol/L
[2023-12-15 14:15] LABS: Alanine Aminotransferase 18 U/L (0-31); Alkaline Phosphatase 112 U/L (39-117); Anion Gap 17 (12-20); Aspartate Amino Transferase 21 U/L (5-31); Bilirubin Total 0.4 mg/dL (0.0-1.0); Blood Urea Nitrogen 17 mg/dL (9-16); Calcium 8.9 mg/dL (8.4-10.2); Carbon Dioxide 22 mmol/L (22-29); Chloride 107 mmol/L (96-108); Estimated Glomerular Filt Rate > 60; Glucose Random 126 mg/dL (60-115); Iron 53 mcg/dL (30-160); Percent Iron Saturation 21 % (15-50); Sodium 142 mmol/L (135-145); Total Iron Binding Capacity 258 mcg/dL (228-428); Total Protein 6.8 g/dL (6.5-8.0); Unsaturated Iron Binding 205 ug/dL
[2023-12-15 14:23] LABS: Ferritin 70 ng/mL (10-250)
== END 2023-12-15 10:24 | disposition home or self-care (01) ==
LOC: HO.MANLDS 10:23
PROVIDERS: Visit Provider Physician Assistant
DX: Z00.00 Encounter for general adult medical examination without abnormal findings (principal); D50.0 Iron deficiency anemia secondary to blood loss (chronic); Z13.1 Encounter for screening for diabetes mellitus
CPT/HCPCS: 36415; 80053; 82728; 83036; 83540; 85025

== ENCOUNTER 2024-02-20 13:27 | Outpatient (AMB) | payer MEDICARE, SELFPAY ==
--- NOTE | 2024-02-20 13:38 | A.OFFVIS_ITS ---
Intake Visit Reasons: TACK PULLER/AAA a/p PVC Aorto-iliac US Intake Note: New patient presents for AAA PVC Aorto Iliac US. No complaints. Accompanied by: Self / Same As Patient Allergies oxycodone Adverse Reaction (Unknown, Uncoded 07/03/20 11:08) itching HPI HPI TACK PULLER/AAA a/p PVC Aorto-iliac US: Details: Very pleasant 68-year-old female presents for evaluation regarding abdominal aortic aneurysm. She actually began this entire workup due to a family history. She had a mother with an abdominal aortic aneurysm and brother as well. She had undergone noninvasive testing and at that time it measured 2.47 cm and this was done at [facility]. She subsequently met underwent a CT scan which demonstrated 2.3 cm aorta. Upon further discussion with her she is asymptomatic. She reports she quit smoking about 12 years prior and is a nondiabetic. [facility] Medical History HTN (hypertension) High cholesterol Acid reflux Personal history of nicotine dependence Osteopenia Arthritis Anxiety Surgical History History of right breast biopsy History of hysteroscopy History of hernia repair History of tubal ligation Family History Brother Lung cancer Sister Lung cancer Social History Household Members: Significant Other Housing: House Do you presently have visiting nurse or other home services: No Alcohol intake: current Alcohol intake frequency: does not drink Patient Tobacco Use Status: Former Tobacco user Years Smoked: (onset 11yo, 1ppd x 32yrs, 30pyh, quit 2011, uses marijuana) Substance Use Type: Opiates service: No Current occupational status: retired Current occupation: right handed Review of Systems Const All systems reviewed & are unremarkable except as noted in HPI and below Reports no additional complaints ENT Reports Normal hearing present Card Denies chest pain, Denies chest pain at rest, Denies chest pain with activity and Denies pedal edema Resp Denies cough GI Denies abdominal pain Musc Denies abnormal gait, Denies muscle cramps and Denies radiating pain into limb Skin/Breast Denies skin ulcer and Denies wounds Neuro Reports Normal hearing present and Denies abnormal gait Psych Reports no additional complaints Physical Exam Const General: cooperative, healthy appearing and comfortable Orientation/consciousness: oriented to person, oriented to place and oriented to time HEENT Head: Yes normal to inspection Neck Neck: Yes normal visual inspection Carotids: no bruits Chest Chest palpation & inspection: normal inspection of the chest Resp Effort & Inspection: normal respiratory effort and able to speak in complete se ntences Auscultation: clear to auscultation bilaterally, no crackles, no rales, no rhonchi and no wheezes Cardio Rate: regular rate Rhythm: regular rhythm Heart sounds: S1 normal heart sound present and S2 normal heart sound present Bruits: no carotid bruits Peripheral pulses: Peripheral pulses 2+ throughout GI Inspection: Yes normal to inspection Skin Wounds: no wounds Hair: normal Neuro General: oriented to person, oriented to place and oriented to time Cranial nerves: Yes CN's II-XII intact bilaterally and Yes Normal hearing present Cognition (Neuro): normal cognition Motor exam (neuro): 5/5 motor strength present throughout Extrem Other: venous exam: No significant superficial varicosities or spider telangiectasi as, minimal edema General: No clubbing, No cyanosis and No edema Psych Appearance: grossly normal Mental Status: mental status grossly normal Speech and movement: Normal speech and movement present Results Reviewed Results Reviewed: Ultrasound report from 10/23/[address] scan from 11/23/2023 were reviewed. Assessment & Plan Assessment & Plan (1) AAA (abdominal aortic aneurysm) without rupture: Code(s): I71.40 - Abdominal aortic aneurysm, without rupture, unspecified Category: Medical Qualifiers: Abdominal aorta location: infrarenal aorta Qualified Code(s): I71.43 - Infrarenal abdominal aortic aneurysm, without rupture Plan: In short patient does not have an aortic aneurysm. At 2.3 cm it is within the realm of acceptable size is.. We have discussed the pathophysiology of aortic aneurysms and the risk of ruptures. We have discussed rupture risk based on size. In addition we have discussed conservative measures and risk factor modification for prevention of increase in size of the aneurysm. It may be worthwhile to re-evaluate the aorta in approximately 5 years' time which we did inform the patient. This was all discussed with the patient and she was in agreement.. Thank you for allowing us to participate in the care of this patient Coding Level of Care Code New Pt Level 4 (98116) Diagnoses Infrarenal abdominal aortic aneurysm (AAA) without rupture I71.43 Abdominal aorta location: infrarenal aorta
--- OUTSIDE RECORDS SUMMARY | 2024-02-20 16:01 | XMS_ITS ---
Author Organization [facility] Address [address] [place] [address] Care Team Providers Care Relationship Specialist Name Role Phone Ranjeet Houston MD Primary Care Provider Andrew Duran [phone] REASON FOR VISIT cx appt 11/30 Encounters Encounter Location Date Provider Diagnosis [address] [address] 11/17/2022 Andrew Miller Plan Of Treatment No Information Progress Notes * ERICDiana ZALDIVARhleen FDOB:[birth year] (67 yo F)Acc No.[id number]:11/17/2022 Patient:?Ernestina Reyes :1955???Age:67 Y???Sex:Female Address:[address] [place] [id number] * true * Date:? Generated for Elianai seng/Claudia/eTransmitting on:?02/20/2024 04:01 PM EST
--- OUTSIDE RECORDS SUMMARY | 2024-02-20 16:02 | XMS_ITS | Patient Health Record ---
Author Organization [facility] Address [address] [place] [address] Care Team Providers Care Research Associate Name Role Phone Ranjeet Houston MD Primary Care Provider Andrew Duran Unavailable [phone] Allergies Allergen (clinical drug ingredient) Drug/Non Drug Allergy documented on EMR Reaction Allergy Type Onset Date Status acetaminophen / oxycodone Percocet itchy Drug Allergy Active Latex Latex rash Allergy Active Reason For Referral No Information Medications Medication SIG (Take, Route, Frequency, Duration) Notes Start Date End Date Status Lisinopril 40 MG 1 tablet Orally morning Active LORazepam 1 MG Orally Activ e Walking Boot/Pneumatic As directed Wear Daily for Until further notice 01/31/2017 Unknown hydroCHLOROthiazide 12.5 MG 1 capsule in the morning Orally Once a day for 30 day(s) morning Active Aleve Unknown B12 Folate Active Aspirin Unknown Vitamin D 2000 UNIT Orally Unknown Xarelto 20 MG 1 tablet with food Orally Once a day for 30 day(s) Active Melatonin 3 MG 1 tablet at bedtime as needed Orally Once a day for 30 day(s) Active Zoloft 50 MG Orally Once a day Unknown Norvasc 5 MG Orally Unknown Sertraline HCl 50 MG 1 tablet Orally morning Active amLODIPine Besylate 10 MG 1 tablet Orally morning Active Omeprazole 20 MG 1 capsule 30 minutes before morning meal Orally Active Lovastatin 20 MG 1 tablet with the evening meal Orally Active Social History Tobacco Use: Social History Observation Description Date Details (start date - stop date) Former Smoker NA - NA Tobacco Use/Smoking Question Answer Notes Are you a: former smoker How long has it been since you last smoked? < 1 month Additional Findings: Tobacco Non-User Current no n-smoker Alcohol Screen Question Answer Notes Did you have a drink contain ing alcohol in the past year? Yes How often did you have a dri nk containing alcohol in the past year? Monthly or less (1 point) Points 1 Interpretation Negative Tobacco use other than smoking: Question Answer Notes Are you an other tobacco user? No Problems Problem Type SNOMED Code ICD Code Onset Dates Problem Status W/U Status Risk Notes Problem Localized, primary osteoarthritis of the ankle and/or foot (279975636) Primary osteoarthrit is, left ankle and foot (M19.072) Active confirmed Problem Acquired hammer toe of right foot (3758641394698985) Other hammer toe(s) (acquired), right foot (M20.41) Active confirmed Problem Acquired hammer toe of left foot (6797333355462803) Other hammer toe(s) (acquired), left foot (M20.42) Active confirmed Plan Of Treatment Pending Test Test Name Order Date X ray : Ankle, left 3V 06/16/2022 X ray : Foot, left 3V 06/16/2022 X ray : Foot, left 3V 01/31/2017 X ray : Foot, right 3V 06/16/2022 Insurance Providers Payer Name Payer Address Payer Phone Subscriber Number Group Number Insured Name Patient Relationship to Insured Coverage Start Date Coverage End Date [facility] 65 Medicare Preferred [address] [place] [address] [id number] 2 Ernestina Reyes Self - patient is the insured Medical (General) History Medical History History ICD Code Anemia Arthritis Broken bones Cholesterol Depression Measles Mumps Hypertension Numbness Osteoporosis Psoriasis Reflux ( GERD) chronic sinusitis Angina Anxiety CAD (Cholesterol) Heart disease High blood pressure Warts Surgical History Surgery Date(Month/Year) Hernia Repair x2 breast biopsy tubal ligation Cardioversion for afib 2022
== END 2024-02-20 14:03 | disposition home or self-care (01) ==
PROVIDERS: PCP Internal Medicine; Visit Provider Surgery Vascular Surgery
DX: I71.43 Infrarenal abdominal aortic aneurysm, without rupture (principal)
CPT/HCPCS: 99204

== ENCOUNTER → 2024-02-20 13:27 | Outpatient (BNVA) | payer MEDICARE, SELFPAY | PROVIDERS: PCP Internal Medicine; Visit Provider Surgery Vascular Surgery | DX: I71.43 Infrarenal abdominal aortic aneurysm, without rupture (principal) | CPT/HCPCS: 99202 ==

== ENCOUNTER 2024-06-19 12:49 | Outpatient (REF) | payer MEDICARE, SELFPAY ==
--- OUTSIDE RECORDS SUMMARY | 2024-06-19 13:52 | XMS_ITS | Patient Health Record ---
Author Organization [facility] Address [address] [place] [id number] Care Team Providers Care Layer Off Name Role Phone Ranjeet Houston Primary Care Provider Lemuel Grayson Jr Unavailable [phone] Allergies No Known Allergies Reason For Referral No Information Medications Medication SIG (Take, Route, Frequency, Duration) Notes Start Date End Date Status Vitamin D 50 MCG (1999) 1 tablet Oral ly Once a day Active Aspir-81 81 MG 1 tablet Orally Once a day Active Zoloft 50 MG 1 tablet Orally Once a day Active Lisinopril 40 MG 1 tablet Orally twic e a day Active Norvasc 5 MG 1 tablet Orally twic e a day Active Omeprazole 20 MG 1 capsule Orally Onc e a day Active Lovastatin 20 MG 1 tablet with a meal Orally Once a day Active amLODIPine Besy-Benazepril H Cl 2.5-10 MG as directed Orally Active MiraLax (colon prep) 17 GM/SCOOP mixed with Gatorade or Crystal Light Orally begin at 5:00 p.m. the day before the procedure for 1 day 10/14/2021 Active hydroCHLOROthiazide 12.5 MG 1 capsule in the morning Orally Once a day for 30 day(s) Active Celecoxib 200 MG 1 capsule with food Orally Once a day for 30 day(s) Active LORazepam 1 MG 1 tablet at bedtime as needed Orally Once a day Active valACYclovir HCl 500 MG 1 tablet Orally Once a day for 10 day(s) Active Melatonin 5 MG 1 tablet in the evening Orally Once a day for 30 day(s) Active Immunizations Vaccine Route Administration Date Status Comme nts Influenza Unknown 12/01/2020 Administered Social History Tobacco Use: Social History Observation Description Date Details (start date - stop date) Former Smoker NA - NA Tobacco Use/Smoking Question Answer Notes Patient is a former smoker How long has it been since you last smoked? 1-5 years Alcohol Screen Question Answer Notes Did you have a drink contain ing alcohol in the past year? Yes How often did you have a dri nk containing alcohol in the past year? 2 to 3 times a week (3 points) How many drinks did you have on a typical day when you were drinking in the past year? 3 or 4 drinks (1 point) How often did you have 6 or more drinks on one occasion in the past year? Never (0 point) Points 4 Interpretation Positive Problems Problem Type SNOMED Code ICD Code Onset Dates Problem Status W/U Status Risk Notes Problem 552519145 Colon cancer screening (Z12.11) Active confirmed Problem 964948708 Irritable bowel syndrome with diarrhea (K58.0) Active confirmed Problem Iron deficiency anemia (28167250) Iron deficiency anemia (D50.9) Active confirmed Problem 746074678 Gastroesophageal reflux disease without esophagitis (K21.9) Active confirmed Problem 69322445 Gastric polyp (K31.7) Active confirmed Problem Benign neoplasm of stomach (27230263) Gastric polyps (K31.7) Active confirmed Problem 43711015 Iron deficiency anemia, unspecified iron deficiency anemia type (D50.9) Active confirmed Plan Of Treatment Pending Test Test Name Order Date IRON + IBC (FE) 07/04/2022 FERRITIN 07/04/2022 CBC w/o DIFF 07/04/2022 Future Test Test Name Order Date COLONOSCOPY 06/15/2016 UPPER GI ENDOSCOPY 06/24/2022 COLONOSCOPY 06/24/2022 Insurance Providers Payer Name Payer Address Payer Phone Subscriber Number Group Number Insured Name Patient Relationship to Insured Coverage Start Date Coverage End Date [facility] [address] [place] [address] [id number] CARLEEN PERRY Self - patient is the insured Medical (General) History Medical History History ICD Code Colonoscopy 07/01/16, hyperpl astic polyp, five-year followup because of family history of colon polyps GERD depression Elevated cholesterol Hypertension Oral HSV infection Arthritis Surgical History Surgery Date(Month/Year) breast biopsies x2 tubal ligation umbilical hernia repair 2015
--- OUTSIDE RECORDS SUMMARY | 2024-06-19 13:52 | XMS_ITS | Patient Health Record ---
Author Organization [facility] Address [address] [place] [address] Care Team Providers Care Preparation Supervisor Freezing Name Role Phone Ranjeet Houston MD Primary Care Provider Andrew Duran Unavailable [phone] Allergies Allergen (clinical drug ingredient) Drug/Non Drug [...] Problem Status W/U Status Risk Notes Problem Primary osteoarthriti s, left ankle and foot (M19.072) Active confirmed Problem Acquired hammer toe of right foot (2102444008205 105) Other hammer toe(s) (acquired), right foot (M20.41) Active confirmed Problem Acquired hammer toe of left foot (0729574035662 103) Other hammer toe(s) (acquired), left foot (M20.42) [...] Insured Coverage Start Date Coverage End Date [facility] 65 Medicare Preferred [address] [place] [address] [phone] [id number] Ernestina Reyes Self - patient is [...]
--- OUTSIDE RECORDS SUMMARY | 2024-06-19 13:53 | XMS_ITS | Clinical Summary ---
Author Organization [facility] Address [address] [place] [address] Phone Care Team Providers Care Manager Of Application Development Name Role Phone Ranjeet Houston DO Primary Care Provider [phone] Allergies Active Allergy Reactions Criticality Noted Date Comments Other Itching 07/06/2022 Percocet [Apap-fd&c Blue #1-oxycodone] Oxycodone-Acetaminophen 01/11/2023 Other reaction(s): rash Medications melatonin 5 mg tablet Take 2 Tablets by mouth daily. Active ascorbic acid, vitamin C, 500 mg capsule Take 1 Capsule by mouth daily. Active cholecalciferol (VITAMIN D-3) 50 mcg (2,000 unit) capsule Take by mouth daily. Active cyanocobalamin (VITAMIN B-12) 1,000 mcg tablet Take 2 Tablets by mouth daily. Active ferrous sulfate 325 mg (65 mg elemental iron) tablet Take 1 Tablet by mouth daily. Active lisinopril (PRINIVIL,ZESTRI L) 40 mg tablet TAKE 1 TABLET BY MOUTH DAILY Active LORazepam (ATIVAN) 1 mg tablet Take 1 tablet (1 mg total) by mouth at bedtime. Active omeprazole 20 mg tablet,disintegr at, delay rel Take by mouth daily. Active sertraline (ZOLOFT) 50 mg tablet Take 50 mg by mouth daily. Active metoprolol succinate (TOPROL-XL) 25 mg 24 hr tabletIndication s:Paroxysmal atrial fibrillation (CMS/HCC V24, CMS/HCC V28) Take 1 tablet (25 mg total) by mouth 1 (one) time each day. Do not crush or chew. 90 tablet 2 03/25/19 25 Active rivaroxaban (Xarelto) 20 mg tablet TAKE 1 TABLET BY MOUTH EVERY DAY 90 tablet 1 04/19/19 25 Active isosorbide mononitrate (IMDUR) 30 mg 24 hr tablet Take 2 tablets (60 mg total) by mouth 1 (one) time each day. Do not crush or chew. 180 tablet 3 05/14/19 25 Active rosuvastatin (CRESTOR) 10 mg tablet TAKE 1 TABLET BY MOUTH EVERY DAY 90 tablet 1 06/14/19 25 Active rosuvastatin (CRESTOR) 10 mg tablet Take 1 tablet (10 mg total) by mouth 1 (one) time each day. 90 tablet 1 12/21/19 24 025 Discontinued Active Problems Problem Noted Date Diagnosed Date Infrarenal abdominal aortic aneurysm (AAA) without rupture ([facility] V24) 01/30/2024 Assessment & Plan (03/25/2024 1:07 PM EST): The patient was noted to have left saccular aneurysm of the distal abdominal aorta that was measured at 2.5 cm on abdominal aorta duplex from October 2023. The patient completed a follow-up abdominal pelvic CT scan at [facility] and has also been under evaluation by Dr. Palmer who is a vascular surgeon at [facility]. The patient will continue to follow with the vascular surgery service at [facility] regarding the monitoring and management of her infrarenal abdominal aortic aneurysm. Assessment & Plan (02/28/2024 3:47 PM EST): The patient was noted to have left saccular aneurysm of the distal abdominal aorta that was measured at 2.5 cm on abdominal aorta duplex from October 2023. The patient completed a follow-up abdominal pelvic CT scan at [facility] and has also been under evaluation by Dr. Palmer who is a vascular surgeon at [facility]. The patient will continue to follow with the vascular surgery service at [facility] regarding the monitoring and management of her infrarenal abdominal aortic aneurysm. Assessment & Plan (01/30/2024 9:01 AM EST): The patient was noted to have an abdominal aortic aneurysm that was measured at 2.5 cm on abdominal aorta duplex from October 2023. The patient was referred for an abdominal pelvic CTA which was done at [facility]. The study confirmed the presence of an abdominal aortic aneurysm. The patient will be evaluated by the vascular surgery service at [facility]. She is scheduled to see Dr. Souza from the [facility] vascular surgery service in February 2024. HLD (hyperlipidemia) 08/22/2023 Overview (01/09/2024): Last Assessment & Plan: The patient has a history of hyperlipidemia. The patient is currently on rosuvastatin 10 mg orally daily. We will order a new lipid panel to evaluate the patient's current lipid control and determine if any adjustment are needed in the lipid lowering therapy. Assessment & Plan (03/25/2024 1:07 PM EST): The patient has a history of hyperlipidemia. She is currently on rosuvastatin 10 mg orally daily. Will continue her current therapy. Assessment & Plan (02/28/2024 3:47 PM EST): The patient has a history of hyperlipidemia. The patient is currently on rosuvastatin 10 mg orally daily. We will order a new lipid panel to evaluate the patient's current lipid control and determine if any adjustment are needed in the lipid lowering therapy. Orders: Lipid panel; Future Assessment & Plan (01/30/2024 9:01 AM EST): The patient has a history of hyperlipidemia. She also has a history of CAD and carotid artery stenosis. The patient is currently on rosuvastatin 10 mg orally daily. Last lipid panel showed an LDL of 76. Her LDL target is 70 or below. We discussed her hyperlipidemia during today's visit. The patient will try to make adjustments to her diet and we will repeat her lipid panel at the beginning of 2024. If her LDL is still above 70, then we will increase the dose of her rosuvastatin. CAD (coronary artery disease) 07/06/2022 Overview (01/09/2024): Last Assessment & Plan: The patient has a history of nonobstructive coronary artery disease which was noted on the cardiac CT scan done in June 2022. She continues on antianginal therapy with metoprolol, amlodipine, and isosorbide mononitrate. She denies any anginal symptoms on today's visit. She is also on antithrombotic therapy with Xarelto and statin therapy with rosuvastatin. Will continue her current therapy. Assessment & Plan (03/25/2024 1:07 PM EST): The patient has a history of nonobstructive coronary artery disease as demonstrated on her cardiac CT scan from June 2022. Currently, her symptoms are well- controlled with metoprolol and isosorbide mononitrate. She is also on antithrombotic therapy with Xarelto. As such, we will continue her current medication regimen. Assessment & Plan (02/28/2024 3:47 PM EST): The patient has a history of nonobstructive coronary artery disease as demonstrated on her cardiac CT scan from June 2022. Currently, her symptoms are well- controlled with metoprolol and isosorbide mononitrate. She is also on antithrombotic therapy with Xarelto. As such, we will continue her current medication regimen. Assessment & Plan (01/30/2024 9:01 AM EST): The patient has a history of nonobstructive coronary artery disease as demonstrated on her cardiac CT scan from June 2022. She also likely has a component of microvascular angina. Currently, her symptoms are well-controlled with metoprolol and isosorbide mononitrate. She is also on antithrombotic therapy with Xarelto. As such, we will continue her current medication regimen. Orders: Comprehensive metabolic panel; Future Lipid panel; Future metoprolol succinate (TOPROL-XL) 25 mg 24 hr tablet; Take 0.5 tablets (12.5 mg total) by mouth 1 (one) time each day. Do not crush or chew. Paroxysmal atrial fibrillation (CMS/HCC V24, CMS /HCC V28) 10/26/2021 Overview (01/09/2024): Last Assessment & Plan: The patient has a history of paroxysmal atrial fibrillation status post cardioversion in 2021 and ablation in 2022. She continues on rate control therapy with metoprolol. She verifies her heart rhythm at home using her home 1-lead EKG device and she has been noted to be in a normal sinus rhythm. She continues on anticoagulation therapy with Xarelto 20 mg orally daily given her [id number] score of 4 (age, gender, CAD, hypertension). No episodes of abnormal bleeding have been noted. Will continue her current therapy. Assessment & Plan (03/25/2024 1:07 PM EST): The patient has a history of paroxysmal atrial fibrillation status post cardioversion 11/2021 status post ablation in December 2022 (Dr. Monterroso) status post cardioversion in February 2024. On today's visit, she is noted to be in sinus bradycardia with a heart rate of 50 bpm. The patient is currently metoprolol 25 mg daily. She states that at home her heart rate is usually around 55 bpm. She has not noticed any evidence of profound bradycardia at home. As such, at this point, we will continue her current rate control therapy with metoprolol and will continue anticoagulation therapy with Eliquis due to her elevated [id number] score. Orders: ECG 12 lead metoprolol succinate (TOPROL-XL) 25 mg 24 hr tablet; Take 1 tablet (25 mg total) by mouth 1 (one) time each day. Do not crush or chew. Assessment & Plan (02/28/2024 3:47 PM EST): The patient has a history of paroxysmal atrial fibrillation status post cardioversion in November 2021 and atrial fibrillation ablation by Dr. Monterroso in December 2022. The patient is on rate control therapy with Toprol 12.5 mg orally daily at home. On Monday evening, she noticed a recurrence of her atrial fibrillation which initially manifested by symptoms of palpitations and shortness of breath. She confirmed the presence of atrial fibrillation using her Kardia device. Initially her heart rate was between 140 and 160 bpm. After that, the metoprolol was increased to 25 mg orally daily and the heart rate improved to 90-110 bpm. Her symptoms of palpitations or shortness of breath also improved but they are still present. She denies any chest pain. EKG today in our office showed atrial fibrillation with a heart rate of 117 bpm and a nonspecific T wave abnormality. We discussed the fact that the patient would likely need a cardioversion to restore a sinus rhythm. The patient is agreeable to this. She has not missed any doses of her Xarelto. We discussed the possibility of referring her to the emergency room today for IV rate control therapy and possible cardioversion versus arranging an outpatient cardioversion on Monday. The patient would like to avoid being hospitalized and therefore she stated that she would prefer to have an outpatient cardioversion on Monday. As such, we will arrange for the patient to undergo an electrical cardioversion on Monday. The procedure will be done by Dr. Roman. I discussed this with Dr. Roman and she is in agreement with scheduling a cardioversion. In the meantime, I will increase her metoprolol succinate from 25 mg orally daily up to 50 mg orally daily. Will hold her hydrochlorothiazide for now in order to avoid any hypotension secondary to the increasing the dose of the metoprolol. The patient will continue her anticoagulation therapy with Xarelto given her [id number] score of 4 and her upcoming cardioversion. I gave the patient explicit instructions to continue to monitor her heart rate at home. I explicitly told the patient that she needed to go to the emergency room if she notices her heart rate to be above 130 bpm. Furthermore, I also instructed the patient to go to the emergency room immediately if she notices any worsening of her palpitations or shortness of breath; and also to go to the emergency room immediately if she notices any symptoms of chest discomfort, dizziness, or syncope. Orders: Cardioversion external; Future Thyroid stimulating hormone; Future CBC and differential; Future Prothrombin time with INR; Future Comprehensive metabolic panel; Future Lipid panel; Future Assessment & Plan (01/30/2024 9:01 AM EST): The patient has a history of paroxysmal atrial fibrillation status post cardioversion in November 2021 and atrial fibrillation ablation in December 2022. The patient monitors her heart rhythm regularly at home and there has been no evidence of recurrent A-fib after the ablation. She continues on rate control therapy with Toprol 25 mg orally daily. She has noticed occasional episodes of low heart rate at home. She has also noticed occasional episodes of lightheadedness. EKG today in our office shows sinus bradycardia with a heart rate of 51 bpm. As such, we will decrease the dose of her Toprol to 12.5 mg orally daily. The patient will continue to monitor her heart rate at home and will contact our office if her heart rate is still reduced even after the adjustment of the dose of the Toprol. On the other hand, the patient has an elevated [id number] score of 4 (age, gender, CAD, hypertension) and therefore she will continue on anticoagulation therapy with Xarelto. Orders: ECG 12 lead Carotid artery stenosis 10/26/2021 Overview (01/09/2024): Last Assessment & Plan: The patient has a history of carotid artery stenosis. Her last carotid artery duplex was in December 2020. Will send the patient for a follow-up carotid artery duplex to reevaluate her carotid artery stenosis. Assessment & Plan (03/25/2024 1:07 PM EST): The patient has a history of carotid artery stenosis. Her last carotid artery duplex from October 2023 showed mild stenosis in the left ICA and mild stenosis in the right ICA. As such, the patient will need yearly monitoring of her carotid artery stenosis. She will also continue on medical therapy with rosuvastatin. The patient is on antithrombotic therapy with Xarelto. Assessment & Plan (02/28/2024 3:47 PM EST): The patient has a history of carotid artery stenosis. Her last carotid artery duplex from October 2023 showed mild stenosis in the left ICA and mild stenosis in the right ICA. As such, the patient will need yearly monitoring of her carotid artery stenosis. She will also continue on medical therapy with rosuvastatin. The patient is on antithrombotic therapy with Xarelto. Assessment & Plan (01/30/2024 9:01 AM EST): The patient has a history of carotid artery stenosis. Her last carotid artery duplex from October 2023 showed mild stenosis in the left ICA and mild stenosis in the right ICA. As such, the patient will need yearly monitoring of her carotid artery stenosis. She will also continue on medical therapy with rosuvastatin. The patient is on antithrombotic therapy with Xarelto. Snoring 12/08/2020 Overview (01/09/2024): Last Assessment & Plan: Patient endorses snoring as well as daytime fatigue. She also has newly diagnosed atrial fibrillation. She has not had a sleep study in the past. She does have a STOP-BANG of 3 and I recommended we do a sleep study. She is requesting to do a home sleep study. I placed the order today. Primary hypertension 12/08/2020 Overview (01/09/2024): Last Assessment & Plan: The patient has a history of arterial hypertension. The patient's blood pressure today was noted to be well controlled. We'll continue the current antihypertensive medication regimen. Assessment & Plan (03/25/2024 1:07 PM EST): The patient has a history of arterial hypertension. The patient's blood pressure today was noted to be well controlled. We'll continue the current antihypertensive medication regimen. Assessment & Plan (02/28/2024 3:47 PM EST): The patient has a history of hypertension. Blood pressure was noted to be well-controlled today. We need to increase the dose of her metoprolol due to her atrial fibrillation. As such, we will increase her metoprolol from 25 mg orally daily up to 50 mg orally daily. Given that we will be increasing the metoprolol, we will discontinue her hydrochlorothiazide in order to avoid hypotension. Assessment & Plan (01/30/2024 9:01 AM EST): The patient has a history of hypertension. She is currently on hydrochlorothiazide 12.5 mg orally daily, lisinopril 40 mg orally daily, and Toprol 25 mg orally daily. Blood pressure today was 108/70 mmHg. She has been having instances of low heart rate at home. As such, we will decrease to Toprol to 12.5 mg orally daily. Resolved Problems Problem Noted Date Diagnosed Date Resolved Date Dyspnea on exertion 12/17/2021 02/27/19 25 Overview (01/09/2024): Last Assessment & Plan: The patient has a longstanding history of shortness of breath, however most recently, she has been reporting worsening shortness of breath the past 6 months. In the past, she underwent an echocardiogram which showed normal LV function as well as a nuclear stress test in January 2022 which showed no areas of ischemia or infarction. Ultimately, she underwent a cardiac CT scan which showed nonobstructive coronary artery disease. She also underwent PFTs in the past which showed isolated reduction in diffusion capacity and it could be due to lung disease, anemia, or cardiac disease and to correlate clinically. Today, her EKG shows normal sinus rhythm at a rate of 60 bpm. We discussed that her symptoms are unlikely due to atrial fibrillation given she has been monitoring her heart rhythm and she has not had any episodes of atrial fibrillation. We also discussed that in the past, she has had worsening shortness of breath due to significant anemia. She will update a CBC today and I will notify her of the results as soon as they become available. We also discussed that the shortness of breath may be related to worsening coronary artery disease and we will update a nuclear stress test to rule out ischemia as a cause as well as an echocardiogram to evaluate her LV function and assess for any valvular disease. We also discussed that her symptoms may be related to a pulmonary etiology and she is already in the process of obtaining an appointment with her preferred dye feeder. I encouraged her to reach out if she requires a referral from us and I would be happy to send the referral. Patient advised to seek emergency medical attention by calling 911 if they were to develop severe dyspnea, chest pain that did not resolve with rest or nitroglycerin, or if they were to faint. Dizziness 12/08/2020 01/30/2024 Vision changes 12/08/2020 03/25/2024 Encounters Date Type Department Care Team Description 05/13/2024 Telephone [facility] Cardiology [facility] [address] [place] [address] Dick Mayers MD Med Refill (isosorbide) 03/25/2024 11:20 AM EST Office Visit [facility] [address] [facility] [address] [place] [address] Dick Mayers MD Paroxysmal atrial fibrillation (CMS/HCC V24, CMS/HCC V28) (Primary Dx); Coronary artery disease involving [place] coronary artery of [place] heart without angina pectoris; Primary hypertension; Pure hypercholesterolemia; Bilateral carotid artery stenosis; Infrarenal abdominal aortic aneurysm (AAA) without rupture ([facility] V24) from Last 3 Months Immunizations Name Administration Dates Next Due Moderna SARS-CoV-2 COVID-19, mRNA, LNP-S, preservative free 04/10/2020 Medical History Medical History Date Comments HTN (hypertension) DX:HTN (hyper tension) Hyperkalemia DX:Hyperkalemia Microcytic anemia DX:Microcytic anemia Social History Tobacco Use Types Packs/Day Years Used Date Smoking Tobacco: Former Cigarettes Smokeless Tobacco: Never Tobacco Cessation:Counseling Given: Not Answered Alcohol Use Standard Drinks/Week Comments Yes 0 (1 standard drink = 0.6 oz pur e alcohol) occ Comments Unknown Sex and Gender Information Value Date Recorded Sex Assigned at Female 02/29/2024 8:10 AM EST Legal Sex Female 9:58 AM EST Gender Identity Female 02/29/2024 8:10 AM EST Sexual Orientation Straight 02/29/2024 8: 10 AM EST Obstetrics History Last Filed Vital Signs Vital Sign Reading Time Taken Comments Blood Pressure 110/60 03/25/2024 11:19 AM EST Pulse 61 03/25/2024 11:19 AM EST Temperature 36.6 ??C (97.8 ??F) 03/01/2024 1:19 PM ES T Respiratory Rate 17 03/01/2024 3:00 PM EST Oxygen Saturation 96% 03/25/2024 11:19 AM EST Inhaled Oxygen Concentration - - Weight 114 kg (250 lb 9.6 oz) 03/25/2024 11:19 A M EST Height 167.6 cm (5' 6 ) 03/25/2024 11:19 AM EST Body Mass Index 40.45 03/25/2024 11:19 AM EST Plan of Treatment Upcoming Encounters Date Type Department Care Team (Late st Contact Info) Description 10/03/2024 1:10 PM EDT Office Visit [facility] [address] [facility] [place] [address] Kely Deluna NP [address] [place] [address] [place] [address] 10/23/2024 1:30 PM EDT Office Visit [facility] [address] [place] [id number] Dick Mayers MD [address] [place] [address] [address] [place] [address] Health Maintenance Due Date Last Done Comments Breast Cancer Screening 1955 DTaP,Tdap,and Td Vaccines (1 - Tdap) 1973 Pneumococcal Vaccine: 50+ Years (1 of 1 - PCV) 2004 Zoster Vaccines (1 of 2) 2004 RSV Immunization Adult Patients (1 - Risk 60-74 years 1-dose series) 2014 Colorectal Cancer Screening: Colonoscopy 01/23/2022 Depression Screening 01/23/2022 Falls Risk Assessment 01/23/2022 Hepatitis C Screening 01/23/2022 Osteoporosis Screening (Bone Density Screening) 01/23/2022 Social Influencers of Health Screening 01/23/2022 Medicare Annual Wellness Visit 12/01/2022 12/01/2021 COVID-19 Vaccine ( season) 2023 12/15/2020, 05/08/2020, 04/10/2020 Influenza Vaccine (Season Ended) 2024 12/06/2021, 11/25/2020, 11/07/2019, Additional history exists Hypertension/CHF/CAD Annual BMP Blood Test 02/27/2025 02/28/2024 Cholesterol Screening (Lipid Panel) 02/27/2029 02/28/2024 HIB Vaccines Aged Out No longer eligi ble based on patient's age to complete this topic HPV Vaccines Aged Out No longer eligi ble based on patient's age to complete this topic Hepatitis A Vaccines Aged Out No long er eligible based on patient's age to complete this topic Hepatitis B Vaccines Aged Out No long er eligible based on patient's age to complete this topic IPV Vaccines Aged Out No longer eligi ble based on patient's age to complete this topic MMR Vaccines Aged Out No longer eligi ble based on patient's age to complete this topic Meningococcal ACWY Vaccine Aged Out N o longer eligible based on patient's age to complete this topic Meningococcal B Vaccine Aged Out No l onger eligible based on patient's age to complete this topic RSV Immunization Patients Under 20 months Aged Out No longer eligible based on patient's age to complete this topic Varicella Vaccines Aged Out No longer eligible based on patient's age to complete this topic Procedures Procedure Name Priority Date/Time Associated Diagnosis Comments ECG 12-LEAD Routine 03/25/2024 11:30 AM EST Paroxysmal atrial fibrillation (CMS/HCC V24, CMS/HCC V28) COMPREHENSIVE METABOLIC PANEL Routine 02/28/2024 3:40 PM EST Paroxysmal atrial fibrillation (CMS/HCC V24, CMS/HCC V28) LIPID PANEL Routine 02/28/2024 3:40 PM EST Paroxysmal atrial fibrillation (CMS/HCC V24, CMS/HCC V28) Pure hypercholesterolemia from Last 3 Months or Most Recently Relevant to Health Maintenance Results * ECG 12 lead (03/25/2024 11:30 AM EST) Ventricular Rate ECG 50 BPM GEMUSE Atrial Rate 50 BPM GEMUSE P-R Interval 178 ms GEMUSE QRS Duration 88 ms GEMUSE Q-T Interval 434 ms GEMUSE QTc 395 ms GEMUSE P Wave [place] 57 degrees GEMUSE R [place] 73 degrees GEMUSE T [place] 72 degrees GEMUSE ECG Interpretation Sinus bradycardia Otherwise normal ECG When compared with ECG of 01-MAR-2024 14:16, Premature atrial complexes are no longer Present Confirmed by DICK MAYERS ([id number]) on 03/25/2024 1:00:38 PM GEMUSE 03/25/2024 11:3 0 AM EST 03/25/2024 1:00 PM EST Dick Mayers MD ECG ORDERABLES Final Result GEMUSE * (ABNORMAL) Lipid panel (02/28/2024 3:40 PM EST) Cholesterol Total 142 100 - 199 mg/dL [facility] Triglycerides 191(H) 0 - 149 mg/dL [facility] HDL Cholesterol 41 >39 mg/dL [facility] 1 VLDL Cholesterol Calculated 32 5 - 40 mg/dL [facility] 1 LDL Chol Calc (NIH) 69 0 - 99 mg/dL [facility] 1 Blood Venous blood specimen / Unknown 02/28/2024 3:40 PM EST 02/28/2024 Narrative [facility] 1 - 02/29/2024 6:07 AM EST Performed at: ??01 - [facility] [address] ??[id number] Web Design Instructor: Fernanda Castellanos MD, Phone: ??[phone] Dick Mayers MD LAB BLOOD ORDERABLES F inal Result [facility] * Comprehensive metabolic panel (02/28/2024 3:40 PM EST) Glucose 93 70 - 99 mg/dL [facility] 1 Blood Urea Nitrogen (BUN) 19 8 - 27 mg/dL [facility] 1 Creatinine 1.00 0.57 - 1.00 mg/dL [facility] 1 eGFR 61 >59 mL/min/1. 73 [facility] 1 BUN/Creatinine Ratio 19 12 - 28 [facility] 1 Sodium 144 134 - 144 mmol/L [facility] 1 Potassium 4.0 3.5 - 5.2 mmol/L [facility] 1 Chloride 105 96 - 106 mmol/L [facility] 1 Carbon Dioxide 23 20 - 29 mmol/L [facility] 1 Calcium 9.9 8.7 - 10.3 mg/dL [facility] 1 Protein Total 7.1 6.0 - 8.5 g/dL [facility] 1 Albumin 4.7 3.9 - 4.9 g/dL [facility] 1 Globulin Total 2.4 1.5 - 4.5 g/dL [facility] 1 Bilirubin Total 0.4 0.0 - 1.2 mg/dL [facility] 1 Alkaline Phosphatase 111 44 - 121 IU/L [facility] 1 Aspartate aminotransferase??(A ST) 20 0 - 40 IU/L [facility] 1 Alanine Aminotransferase (ALT) 18 0 - 32 IU/L [facility] 1 Blood Venous blood specimen / Unknown 02/28/2024 3:40 PM EST 02/28/2024 Narrative [facility] 1 - 02/29/2024 6:07 AM EST Performed at: ??01 - [facility] [address] ??[id number] Web Design Instructor: Fernanda Castellanos MD, Phone: ??[phone] Dick Mayers MD LAB BLOOD ORDERABLES F inal Result [facility] 1 from Last 3 Months or Most Recently Relevant to Health Maintenance Insurance [employer] - [place] MEDICARE ADVANTAGE Care Teams Manager Of Application Development Relationship Specialty Start Date End Date Ranjeet Houston DO [address] [facility] [address] [place], [place] PCP - General 01/31/13
--- OUTSIDE RECORDS SUMMARY | 2024-06-19 13:53 | XMS_ITS | Data Portability ---
Author Organization [facility] Home Service Address [address] [place] [address] Assessment Encounter Date Assessment Date Assessment LastModified by Organization Details LastModified Time 12/05/2022 12/05/2022 This document denotes that a discussion and counseling has been done for the patient on the risk and benefits associated with lung cancer screenings: 1) Discussed the benefits of early detection of lung cancer and reducing mortality by 20% 2) Discussed the likelihood of false positive results that may require further testing, about 20 to 25% 3) Discussed the likelihood of false negatives, meaning the screening does not detect some cases of lung cancer, about 20% 4) Discussed the likelihood of over-diagnosis, where the LDCT may discover lung cancers that may have no caused harm, about 10 to 20% 5) Discussed the possibility of incidental findings when performing the LDCT including any abnormalities (either benign or otherwise) of the thyroid, heart, abdomen, and blood vessels 6) Discussed the risk of radiation exposure of an LDCT, which is equivocal to that of normal background radiation seen over 6 months of time on [place] 7) Discussed the important of adhering to annual LDCT lung cancer screenings 8) Discussed the importance of abstinence of smoking for people who are former smokers and the importance of smoking cessation for current smokers 9) Discussed the impact of comorbidities and ability or willingness to undergo diagnosis and treatment if something concerning is found [email or web address] Not available 12/05/2022 13:57:36 Plan of Treatment Reminders Order Date Submit Date Provider Last Modified By Organization Details Last Modified Time Details Appointments MEDICARE ANNUAL WELLNESS 2024 01:30P M ALEXEI OVIEDO Not available Not available Not available Lab hemoglobi n A1c, QN, blood 2023 024 [facility], [address] [place] [address], [address], 12/18/2023 13:48:01 CMP, serum or plasma 2023 024 [facility], [address] [place] [address], [address], 12/18/2023 13:48:01 iron + TIBC + ferritin, serum [address] [facility], [address] [place] [address], [address], 12/08/2023 13:52:36 CBC w/ auto diff [address] [facility], [address] [place] [address], [address], 12/08/2023 13:52:36 iron + TIBC + ferritin, serum 2022 023 [facility], [address] [place] [address], [address], 06/01/2023 12:38:58 iron + TIBC + ferritin, serum 2023 024 [email or web address] [facility], [address] [place] [address], [address], 06/01/2023 12:38:58 urinalysi s complete, reflex culture 2022 023 [facility], [address] [place] [address], [address], 01/03/2023 12:04:46 iron + TIBC + ferritin, serum 2022 023 [facility], [address] [place] [address], [address], 08/26/2022 12:00:26 CBC w/ auto diff 2022 023 [facility], [address] [place] [address], [address], 07/21/2022 11:36:20 CBC w/ auto diff 2022 023 [facility], [address] [place] [address], [address], 08/26/2022 12:00:26 CBC w/ auto diff 2022 023 [facility], [address] [place] [address], [address], 09/29/2022 12:04:48 iron + TIBC + ferritin, serum 2022 023 [facility], [address] [place] [address], [address], 09/29/2022 12:04:48 iron + TIBC + ferritin, serum 2022 023 [facility], [address] [place] [address], [address], 09/29/2022 12:04:47 CBC w/ auto diff 2022 023 [facility], [address] [place] [address], [address], 09/29/2022 12:04:48 TSH + free T4, serum 2020 021 [facility], [address] [place] [address], [address], 12/02/2020 11:53:17 CMP, serum or plasma 2020 021 [facility], [address] [place] [address], [address], 12/02/2020 11:53:17 hemoglobi n A1c, QN, blood 2020 021 [facility], [address] [place] [address], [address], 12/02/2020 11:53:18 lipid panel, blood 2020 021 [facility], [address] [place] [address], [address], 12/02/2020 11:53:17 CBC w/ auto diff 2020 021 [facility], [address] [place] [address], [address], 12/02/2020 11:53:18 Referral gynecolog ist referral 2022 023 [facility], [address] [place] [address] [place], [address], 12/06/2022 08:28:12 Procedures None recorded. Surgeries None recorded. Imaging CT, chest, w/o contrast 2022 023 [facility], [address] [place] [address], [address], 12/13/2022 15:25:47 CT, chest, w/o contrast 2021 022 [email or web address] [facility], [address] [place] [address], [address], 12/03/2021 16:23:53 CT, chest, w/o contrast 2020 021 [facility], [address] [place] [address], [address], 12/14/2020 08:58:28 Medication Orders ferrous sulfate 325 mg (65 mg iron) tablet 2022 023 [id number], [address] [place] [address], [phone], 07/12/2022 15:36:59 lidocaine 5 % topical patch 2020 021 [facility][id number], [address], [place], [id number], 12/01/2021 13:37:15 Patient TargetsNo targets recorded. Patient InstructionsNo instructions recorded. 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 [facility] (Medical Records) [address] [place], [address], 01/01/2021 09:58:23 01/15/20 21 01/06/2021 US, osvaldo morrison id arter y No observ ation record ed. [facility] [address] [place], [address], 01/15/2021 09:18:15 05/27/19 22 05/25/2021 MAMMO , scree savana, digit al, bilat eral No observ ation record ed. [facility] [address] [place] [address] [place], [address], 05/26/2021 11:56:32 12/09/19 22 11/23/2021 US, echo ardio gram No observ ation record ed. [facility] [address] [place], [address], 12/08/2021 13:38:27 12/21/19 22 12/13/2021 CT, chest , w/o contr ast No observ ation record ed. [email or web address] [facility] (Medical Records) [address] [place], [address], 12/20/2021 14:45:24 02/04/20 22 01/25/2022 nucle ar stres s test No observ ation record ed. [facility] [address] [place], [address], 02/03/2022 11:38:06 06/15/19 23 06/07/2022 MAMMO , scree savana, digit al, bilat eral No observ ation record ed. [email or web address] [address] [place], [address], 06/15/2022 10:44:43 12/14/1912/08/2022 CT, chest , w/o contr ast No observ ation record ed. [facility] [address] [place] [address], [address], 12/13/2022 16:08:13 07/03/19 24 06/14/2023 MAMMO , scree savana, digit al, bilat eral No observ ation record ed. [address] [place], [address], 07/03/2023 12:29:49 08/23/19 24 08/03/2023 US, echoc ardio gram No observ ation record ed. [facility] [address] [place], [address], 08/23/2023 19:53:35 10/27/19 24 10/23/2023 US, nj sawant for abdom inal aorti c aneur ysm No observ ation record ed. [email or web address] [facility] [address] [place], [address], 10/30/2023 10:47:03 11/09/19 24 11/01/2023 US, justin x, carot id arter y No observ ation record ed. [email or web address] [facility] [address] [place], [address], 11/10/2023 11:06:20 12/02/19 24 11/23/2023 CT, angio gram, abdom en + pelvi s, w/ contr ast No observ ation record ed. [email or web address] [facility] (Medical Records) [address] [place], [address], 12/03/2023 21:12:32 12/27/19 24 10/27/2023 CT, angio gram, chest , w/o contr ast No observ ation record ed. [email or web address] [facility] (Medical Records) [address] [place], [address], 12/27/2023 08:41:01 Result Notes None recorded. 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 Not Available [employer] 14:52:08 Impaired fasting glycemia 865055105 Active 2019 Not Available [employer] 14:52:08 Iron deficiency anemia 34941235 Active 2022 ALEXEI OVIEDO [address] [place], [address], [facility] 3 15:27:10 Dyspnea 953369206 Active 2022 ALEXEI OVIEDO [address] [place], [address], [facility] 3 15:31:17 Anemia 593042115 Active 2022 ALEXEI OVIEDO [address] [place], [address], [facility] 3 13:45:03 Acute sinusitis 99389720 Active 2023 ALEXEI OVIEDO [address] [place] [address], [address], [facility] 4 15:59:43 Cough 67987351 Active 2023 ALEXEI OVIEDO [address] [place] [address], [address], [facility] 4 10:46:10 Abdominal aortic aneurysm 881056126 Active 2023 Ranjeet Houston, [address] [place] [address], [address], [facility] 4 21:53:35 Problem Notes None recorded. Procedures Surgical History Date Name Laterality Status Provider Name and Address Organization Details Recorded Time Tubal Ligation completed Oanh Chang NP, S [address] [place] [address], [phone], [facility] Internal [facility] 11/29/2017 16:47:26 Breast Biopsy completed Oanh phillip NP, S [address] [place] [address], [address], [facility] 11/29/2017 16:47:46 Hernia Repair completed Ilana Arellano [facility] 11/05/2018 08:32:26 Imaging Results Imaging Date Name Status LastModified by Organization Details LastModified Time 12/29/2020 CT, chest, w/o contrast completed [facility] (Medical Records) [address] [place] [address], [address], 01/01/2021 09:58:23 01/06/2021 US, duplex, carotid artery completed [facility] [address] [place], [address], 01/15/2021 09:18:15 05/25/2021 MAMMO, screening, digital, bilateral completed [address] [place], [address], 05/26/2021 11:56:32 11/23/2021 US, echocardiogram completed [facility] [address] [place], [address], 12/08/2021 13:38:27 12/13/2021 CT, chest, w/o contrast completed [address] (Medical Records) [address] [place], [address], 12/20/2021 14:45:24 01/25/2022 nuclear stress test completed [facility] [address] [place], [address], 02/03/2022 11:38:06 06/07/2022 MAMMO, screening, digital, bilateral completed [address] [place], [address], 06/15/2022 10:44:43 12/08/2022 CT, chest, w/o contrast completed [facility] [address] [place] [address], [address], 12/13/2022 16:08:13 06/14/2023 MAMMO, screening, digital, bilateral completed [address] [place], [address], 07/03/2023 12:29:49 08/03/2023 US, echocardiogram completed [facility] [address] [place], [address], 08/23/2023 19:53:35 10/23/2023 US, screening for abdominal aortic aneurysm completed [email or web address] [facility] [address] [place], [address], 10/30/2023 10:47:03 11/01/2023 US, duplex, carotid artery completed [email or web address] [facility] [address] [place], [address], 11/10/2023 11:06:20 11/23/2023 CT, angiogram, abdomen + pelvis, w/ contrast completed [email or web address] [facility] (Medical Records) [address] [place], [address], 12/03/2023 21:12:32 10/27/2023 CT, angiogram, chest, w/o contrast completed [email or web address] [facility] (Medical Records) [address] [place] [address], [address], 12/27/2023 08:41:01 Procedure Notes None recorded. Medical Equipment None Reported. Allergies Allergen ID Allergen Name Allergen Category Reaction Reaction Severity Criticality Documentation Date Start Date Code Code System Note Provider Name and Address Organization Details Recorded Time 7392 acetamino phen / oxycodone medicatio n rash Not available Not available 12/05/2022 83671 3 RxNorm Snehal du [place] - [facility] 3 13:29:16 Medications Name Sig Start Date Stop Date Status Note LastModified by Organization Details LastModified Time xarelto no dispense - new NO DISPENSE 12/05 completed Not Available Not Available Not Available celecoxib 200 mg capsule TAKE 1 CAPSULE BY MOUTH EVERY DAY 12/01 completed Not Available Not Available Not Available cyclobenzap rine 10 mg tablet 11/10 completed Not Available Not Available Not Available hydrocodone 5 mg-acetamin ophen 325 mg tablet 08/29 completed Not Available Not Available Not Available isosorbide mononitrate ER 30 mg tablet,exte nded release 24 hr TAKE 2 TABLETS (60 MG TOTAL) BY MOUTH 1 (ONE) TIME EACH DAY. DO NOT CRUSH OR CHEW. active Not Available Not Available No t Available meclizine 12.5 mg tablet TAKE 1 TABLET BY MOUTH TWICE DAILY 12/01 completed Not Available Not Available Not Available amlodipine 5 mg tablet take 1 tablet by mouth twice a day 08/29 completed Not Available Not Available Not Available valacyclovi r 500 mg tablet TAKE 1 TABLET BY MOUTH EVERY DAY FOR 10 DAYS active Not Available Not Available No t Available hydrocodone 10 mg-acetamin ophen 325 mg tablet 11/10 completed Not Available Not Available Not Available Imodium A-D 2 mg tablet TAKE 2 TABLETS (4 MG) BY ORAL ROUTE EVERY OTHER DAY active Not Available Not Available No t Available amlodipine 10 mg tablet TAKE 1 TABLET BY MOUTH EVERY DAY active Not Available Not Available No t Available lisinopril 10 mg tablet Take 2 tablets every day by oral route for 90 days. 08/29 completed Not Available Not Available Not Available lidocaine 5 % topical patch 12/01 completed Not Available Not Available Not Available lisinopril 30 mg tablet 11/10 completed Not Available Not Available Not Available omeprazole 20 mg capsule,del ayed release TAKE 1 CAPSULE BY MOUTH EVERY DAY active Not Available Not Available No t Available diclofenac sodium 75 mg tablet,shauna yed release 08/29 completed Not Available Not Available Not Available metoprolol succinate ER 25 mg tablet,exte nded release 24 hr TAKE 1 TABLET BY MOUTH 1 TIME EACH DAY. DO NOT CRUSH OR CHEW. active Not Available Not Available No t Available lorazepam 1 mg tablet TAKE 1 TABLET BY MOUTH EVERY DAY NEEDED active Not Available Not Available No t Available Aspir-81 mg tablet,shauna yed release Take 1 tablet every day by oral route. 12/01 completed Not Available Not Available Not Available lovastatin 20 mg tablet TAKE 1 TABLET BY MOUTH DAILY 07/12 completed Not Available Not Available Not Available Vitamin C 250 mg tablet Take by oral route. active Not Available Not Available No t Available albuterol sulfate HFA 90 mcg/actuati on aerosol inhaler INHALE 2 PUFFS INTO THE LUNGS EVERY 6 HOURS NEEDED FOR COUGH OR SHORTNESS OF BREATH active Not Available Not Available No t Available lisinopril 40 mg tablet TAKE 1 TABLET BY MOUTH EVERY DAY active Not Available Not Available No t Available sertraline 50 mg tablet TAKE 1 TABLET BY MOUTH EVERY DAY active Not Available Not Available No t Available doxycycline hyclate 100 mg tablet TAKE 1 TABLET BY MOUTH TWICE DAILY FOR 12 DAYS 12/07 completed Not Available Not Available Not Available rosuvastati n 10 mg tablet TAKE 1 TABLET BY MOUTH DAILY active Not Available Not Available No t Available Fiber Therapy (methylcell ulose) 500 mg tablet Take 1 tablet every day by oral route. 12/05 completed Not Available Not Available Not Available melatonin 5 mg prn active Not Available Not A vailable Not Available Aleve prn 12/05 completed Not Available Not Available Not Available Vitamin D active Not Available Not Flora ilable Not Available hydrochloro thiazide 12.5 mg tablet TAKE 1 TABLET BY MOUTH EVERY DAY active Not Available Not Available No t Available FeroSul 325 mg (65 mg iron) tablet TAKE 1 TABLET BY MOUTH EVERY DAY active Not Available Not Available No t Available Gavilyte-C 240 gram-22.72 gram-6.72 gram-5.84 gram oral solution 11/29 completed Not Available Not Available Not Available Xarelto 20 mg tablet TAKE 1 TABLET BY MOUTH EVERY DAY active Not Available Not Available No t Available Vitamin B12 active Not Available Not A vailable Not Available Fluarix Quad (PF) 60 mcg (15 mcg x 4)/0.5 mL IM syringe 11/10 completed Not Available Not Available Not Available marijuana (cannabis) oral edible Take by oral route. active Not Available Not Available No t Available Zepbound 2.5 mg/0.5 mL subcutaneou s pen injector Inject 2.5 mg every week by subcutane ous route as directed for 30 days. 2024 active Not Available Not Available Not Avai lable Vitals Date Recorded Body weight Body mass index (BMI) Body height Heart rate Oxygen saturation Oxygen saturation in Arterial blood by Pulse oximetry Systolic blood pressure Diastolic blood pressure Provider Name and Address Organization Details Last Updated DateTime 1 911817. 73 g 42.3 kg/m2 167.01 cm 82 /min 94 % 94 % 142 mm[Hg] 68 mm[Hg] ALEXEI OVIEDO [address] [place], [address] [place] [address] Internal Medicine 1 15:53:17 Date Recorded Body height Body mass index (BMI) Body weight Oxygen saturation Oxygen saturation in Arterial blood by Pulse oximetry Heart rate Systolic blood pressure Diastolic blood pressure Provider Name and Address Organization Details Last Updated DateTime 2 167.01 cm 41.2 kg/m2 613293. 31 g 97 % 97 % 64 /min 108 mm[Hg] 58 mm[Hg] Jessica Smith [facility] 2 13:38:44 Date Recorded Body height Body mass index (BMI) Body weight Heart rate Oxygen saturation Oxygen saturation in Arterial blood by Pulse oximetry Systolic blood pressure Diastolic blood pressure Provider Name and Address Organization Details Last Updated DateTime 3 167.01 cm 41.2 kg/m2 790048. 31 g 73 /min 98 % 98 % 126 mm[Hg] 80 mm[Hg] ALEXEI OVIEDO [address] [place] [address], [address] 3 15:05:45 Date Recorded Body height Body mass index (BMI) Body weight Heart rate Oxygen saturation Oxygen saturation in Arterial blood by Pulse oximetry Systolic blood pressure Diastolic blood pressure Provider Name and Address Organization Details Last Updated DateTime 3 167.01 cm 38.8 kg/m2 023127. 5 g 69 /min 94 % 94 % 118 mm[Hg] 56 mm[Hg] Snehal Love [facility] 3 13:27:59 Date Recorded Body height Body mass index (BMI) Body weight Heart rate Oxygen saturation Oxygen saturation in Arterial blood by Pulse oximetry Systolic blood pressure Diastolic blood pressure Provider Name and Address Organization Details Last Updated DateTime 4 167.01 cm 40.9 kg/m2 410538. 2 g 67 /min 95 % 95 % 112 mm[Hg] 68 mm[Hg] July Tip [facility] 4 13:36:04 Social History Question Answer Notes LastModified by Organizat ion Details LastModified Time Tobacco Smoking Status Former Smoker Jane du [facility] 11/29/2017 16:12:43 Do You Or Have You Ever Used E-cigarettes Or Vape? Never Used Electronic Cigarettes Information not available 11/05/2018 What Was The Date Of Your Most Recent Tobacco Screening? 12/08/2023 [email or web address] Information not available 12/08/2023 Do You Or Have You Ever Used Smokeless Tobacco? Never Used Smokeless Tobacco Information not available 11/05/2018 How Much Tobacco Do You Smoke? 1 PPD Information not available 11/05/2018 How Many Years Have You Smoked Tobacco? 30 Information not available 11/05/2018 Do You Or Have You Ever Used Any Other Forms Of Tobacco Or Nicotine? No [email or web address] Information not available 07/12/2022 Sex: Unknown Functional Status None recorded. Mental Status None recorded. Family History Relationship Description Onset Age of this Age Resolved Age Notes LastModified by Organization Details LastModified Time Mother Congestive heart failure 93 [email or web address] Not available 2017 16:45:23 Father Parkinson's disease 65 [email or web address] Not available 2017 16:45:42 Sister Malignant neoplasm of lung eskaws Not available 2017 16:46:11 Brother Neoplasm of brain eskawski Not available 2017 16:46:26 Brother Peripheral vascular disease eskawski Not available 2017 16:46:37 Brother Malignant neoplasm of lung Not available 08/29 09:20:51 Medical History No medical history recorded. Gynecological HistoryNo gynecological history recorded. Obstetrics History GPAL:G 0 P 0 0 0 0 Immunizations Vaccine Type Date Status Note Provider Nam e and Address Organization Details Recorded Time COVID-19, mRNA, LNP-S, PF, 100 mcg/0.5mL dose or 50 mcg/0.25mL dose 1 completed Natasha du [facility] 12/01/2020 11:22:22 COVID-19, mRNA, LNP-S, PF, 100 mcg/0.5mL dose or 50 mcg/0.25mL dose 1 completed Natasha du [facility] 12/01/2020 11:22:28 COVID-19, mRNA, LNP-S, PF, 100 mcg/0.5mL dose or 50 mcg/0.25mL dose 1 completed Nidia du [facility] 12/16/2020 14:54:31 Influenza, split virus, quadrivalent, preservative 1 completed Jessica du [facility] 12/01/2021 08:14:38 Influenza, split virus, quadrivalent, preservative 9 completed Ranjeet Corine Houston [address], [address], [facility] 11/25/2018 10:36:10 Influenza, split virus, quadrivalent, preservative 0 completed Jane Zuritahillary du [facility] 11/08/2019 14:01:33 Past Encounters Encounter ID Performer Location Encounter Start Date Encounter Closed Date Diagnosis/Indication Diagnosis SNOMED-CT Code Diagnosis ICD10 Code Diagnosis Note [id number] [facility] [address] [facility], [place] [address] 11/29/2017 16:04:16 12/04/2017 09:56:15 Hypercholesterolemia 72783547 E78.00 Essential hypertension 77860605 I10 Vitamin D deficiency 347 29270 E55.9 Osteoarthritis 388481630 M19.90 Does not want tramadol, will continue Aleve prn Depressive disorder 3548 9007 F32.89 Acid reflux 464749328 K2 1.9 on omeprazole Obesity 747257879 E66.9 restart weight watchers [id number] Ranjeet Houston DO [facility] [address] [facility] [address] 08/29/2018 08:50:03 08/29/2018 09:28:54 Essential hypertension 15214117 I10 History of tobacco use 8942932043 103 Z87.891 consider pulm at [facility] for LDCT Dyspnea on exertion 6084 5006 R06.09 Vitamin D deficiency 347 69540 E55.9 [id number] Ranjeet Houston DO [facility] [address] [facility], [place] [address] 11/05/2018 15:13:06 11/05/2018 15:57:34 Adult health examination 495353255 Z00.00 Active or passive immunization 179594764 Z23 will have flu shot Hyperglycemia 91158576 R 73.9 Proteinuria 38902006 R80 .9 Alkaline p hosphatase above reference range 852988185 R74.8 Body mass index 40+ - severely obese 695436788 Z68.41 Hypercholesterolemia 136 79684 E78.00 well controlled on lovastatin Essential hypertension 16650449 I10 well controlled Insomnia 365813041 G47.0 0 uses lorazepam almost every night to help her fall asleep Gastroesop hageal reflux disease 525888817 K21.9 takes that daily Dyspnea on exertion 6084 5006 R06.09 persists awaiting pft results [id number] [place] 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 Internal Medicine [address] [facility], [place] [address] 11/30/2020 15:31:42 11/30/2020 16:38:12 Active or passive immunization 148163558 Z23 patient refuses the shingles vaccine already got a flu shot last monday Adult [facility] th examination 574179413 Z00.00 BP is fine today will continue to monitor has fu with cardiology on monday Abnormal weight gain 161 700238 R63.5 will fu with lab testing Osteoarthritis 703159240 M15.0 will refill her lidocaine patches Multiple n odules of lung 405027820 R91.[address] [place] [id number] [place] [facility] Internal Medicine [address] [facility], [place] [address] 12/01/2021 13:18:16 12/03/2021 16:23:53 Active or passive immunization 283731081 Z23 patient refuses the shingles vaccine already got a flu shot last monday Adult heal th examination 418515963 Z00.00 BP is excellenth ad recent BW with cardiowill pull from [facility] Ex-smoker 8875594 Z87.89 1 will f/u with CT chest w/o contrast [address] [place] [facility] Internal Medicine [address] [facility], [place] [address] 07/12/2022 14:49:56 07/12/2022 15:45:14 Iron deficiency anemia 48761478 D50.0 needs recheck levelswill reorder for her (gastro ordered, but I would prefer for it to be sent directly to me and then will fax to Dr. Fatima office) Dyspnea 223231811 R06.02 resolved [place] n [address] [place] [facility] Internal Medicine [address] [facility], [place] [address] 12/05/2022 13:22:19 12/05/2022 14:07:34 Adult health examination 067713743 Z00.00 BP is good Anemia 548054877 D50.[address] two checks with iron were normal Screening for malignant neoplasm of cervix 426674864 Z12.4 needs new referral Ex-smoker 5235635 Z87.89 1 will f/u with CT chest w/o contrast [id number] Ranjeet [place] [facility] [address] [facility], [place] [address] 12/08/2023 13:22:30 12/08/2023 16:52:09 Active or passive immunization 526515889 Z23 patient refuses the shingles vaccine already got a flu shot last monday Adult heal th examination 153628590 Z00.00 BP is good Depression screening 171 047311 Z13.31 SCREENING NEGATIVE Iron defic iency anemia 42135666 D50.0 needs recheck levelswill reorder for her (gastro ordered, but I would prefer for it to be sent directly to me and then will fax to Dr. Fatima office) Health Concerns Section Related Observation LastModified by Organization Detai ls LastModified Time None Recorded Concern Status LastModified by Organization Details LastModified Time None Recorded Advance Directives Directive None Recorded Payers Encounter Date Sequence Insurance Name Policy Number Policy Mlilan Covered Member ID Millan Member ID Guarantor Name 11/30/2020 1 [place] [employer] Ernestina Reyes [id number] Ernestina Eric 11/30/2020 2 [place] [id number] Ernestina Posada Cornelia [id number] Ernestina Eric 12/01/2021 1 [place] Ernestina Posada Cornelia [id number] Ernestina Eric 12/01/2021 2 [place] [id number] Ernestina Posada Eric [id number] Ernestina Eric 07/12/2022 1 [place]MED[place] PPO) [id number] Ernestina Eric [id number] Ernestina Eric 12/05/2022 1 [place] PPO) [id number] Ernestina Reyes [id number] Ernestina Eric 12/08/2023 1 [place] PPO) [id number] Ernestinajay Reyes [id number] Ernestina Eric Notes Date Note Type Note Provider Name and Address Organization Details Recorded Time text/html Annual WellnessReported bypatient.Diet and Nutrition:healthy diet; discussed vitamin and supplement use; discussed portion control; discussed maintaining calcium balance; discussed diet improvement; the patient is up to 260 pounds per day the patient has not changed her diet in the last year to cause increased weight gain Fracture Risk:no sudden unexplained fractures; no previous musculoskeletal injuries;recent explained fracture; fifth metatarsal break of the left foot Physical Activity:discussed weightbearing activities; discussed exercise habits Additional Lifestyle Factors:no tobacco use; drinks alcohol (mild-moderate) (about wine about 3 to 4 times a month) Depression Risk:never feels sad, empty, or tearful; no loss of interest in activities; no significant changes in weight; no sleep disturbances or insomnia; no agitation; no loss of energy; no feelings of worthlessness or guilt; no thoughts of suicide; no history of depression;history of mood disorders(anxiety and depression, worsened a little) Hearing:no loss of hearing Vision:no vision problems; last eye exam was three years ago ALEXEI OVIEDO [address] [place], [address], [facility] 11/30/2020 16:22:33 2 text/html Annual WellnessReported bypatient.Diet and Nutrition:healthy diet; discussed vitamin and supplement use; discussed portion control; discussed maintaining calcium balance; discussed diet improvement Fracture Risk:no history of fractures; no recent explained fracture; no sudden unexplained fractures; no previous musculoskeletal injuries Physical Activity:exercises on a regular basis; recent increase in physical activity; good physical condition; discussed weightbearing activities; discussed exercise habits Additional Lifestyle Factors:no tobacco use; stopped drinking alcohol; ex smoker for 30 years Depression Risk:never feels sad, empty, or tearful; no loss of interest in activities; no significant changes in weight; no sleep disturbances or insomnia; no agitation; no loss of energy; no feelings of worthlessness or guilt; no thoughts of suicide; no history of depression; no history of mood disorders Hearing:no loss of hearing Vision:no vision problems the patient reports that she was with her cardiologistthe patient reports she was cardio-converted after an echohas a f/u 12/17 the patient was having chest pain at night and with rest with palpitations resolved with cardio-conversion ALEXEI OVIEDO [address] [place], [address], [facility] 12/01/2021 14:30:49 3 text/html hospital f/u the patient reports that she has been having shortness of breath for the past year (cardio had found nothing with her work up)turns out she was just anemic (significantlythe patient reports that she is doing much better discussed her blood thinner and maybe decreasing her xarelto dosage or stopping if she has a xarelto if she gets the watchman needs recheck of her levelswill order it from her and fax to Dr. Fatima the patient needs refill of her ferrous supplementwill set up until she doesn't disucssed iron def with her as well ALEXEI OVIEDO [address] [place], [address], [facility] 07/12/2022 15:43:53 3 text/html Annual WellnessReported bypatient.Diet and Nutrition:healthy diet; discussed vitamin and supplement use; discussed portion control; discussed maintaining calcium balance; discussed diet improvement Fracture Risk:no history of fractures; no recent explained fracture; no sudden unexplained fractures; no previous musculoskeletal injuries Physical Activity:exercises on a regular basis; recent increase in physical activity; good physical condition Additional Lifestyle Factors:no tobacco use; drinks alcohol (mild-moderate) Depression Risk:never feels sad, empty, or tearful; no loss of interest in activities; no significant changes in weight; no sleep disturbances or insomnia; no agitation; no loss of energy; no feelings of worthlessness or guilt; no thoughts of suicide; no history of depression; no history of mood disorders Hearing:no loss of hearing Vision:no vision problems the patient is scheduled for an ablation (Dr. Randall)December 14 is when she is scheduled has been getting a headache every day, after supper, for three monthsthe patient gets it in her frontal lobegone in the morning when she wakes has not checked her BP when it happens her BP is good the patient is still having hot flashes the patient has been having more joint pain, the patient had to stop the celebrex due to the blood thinner seen hand surgeon,no effect with CBD lotion, not voltarenaspercreme helps the bestis gong to try parafin wax bathinjections are not helpful found a polyp in her stomach on her endo from the hospitalalso has gallstones from CT in hospitalwi monitor ALEXEI OVIEDO [address] [facility], [place], [address], [facility] 12/05/2022 14:03:11 4 text/html Annual WellnessReported bypatient.Diet and Nutrition:healthy diet; discussed vitamin and supplement use; discussed portion control; discussed maintaining calcium balance; discussed diet improvement Fracture Risk:no history of fractures; no recent explained fracture; no sudden unexplained fractures; no previous musculoskeletal injuries Physical Activity:exercises on a regular basis; recent increase in physical activity; good physical condition Additional Lifestyle Factors:no tobacco use; no alcohol intake; stopped drinking alcohol Depression Risk:never feels sad, empty, or tearful; no loss of interest in activities; no significant changes in weight; no sleep disturbances or insomnia; no agitation; no loss of energy; no feelings of worthlessness or guilt; no thoughts of suicide; no history of depression; no history of mood disorders Hearing:no loss of hearing Vision:no vision problems has AAA, only 2 cm, will monitor ithas mild carotid stenosis, will monitor it now has COPDa. fib is stable recently saw cardioBP is stable wanted to talk about ozempic etcdoes have IFG, will get updated A1c to see if she would qualifyneed to check her iron levels again ALEXEI OVIEDO [address] [place] [address], [place], [address], [facility] 12/08/2023 13:55:39 OBGyn Episode No OBEpisode recorded.
== END 2024-06-19 12:50 | disposition home or self-care (01) ==
LOC: HO.MAMMO 12:49
PROVIDERS: PCP Internal Medicine; Visit Provider Internal Medicine
DX: Z12.31 Encounter for screening mammogram for malignant neoplasm of breast (principal)
CPT/HCPCS: 77063; 77067

== ENCOUNTER → 2024-06-19 13:00 | Outpatient (BNV) | payer MEDICARE, SELFPAY | PROVIDERS: PCP Internal Medicine; Visit Provider Internal Medicine | DX: Z12.31 Encounter for screening mammogram for malignant neoplasm of breast (principal) | CPT/HCPCS: 77063; 77067 ==

== ENCOUNTER 2024-11-08 15:35 | Outpatient (REF) | payer MEDICARE, SELFPAY ==
--- OUTSIDE RECORDS SUMMARY | 2020-06-24 13:16 | XMS_ITS | Encounter Summary ---
Author Organization [facility] Address [address] [place] [address] [place] [address] Phone Care Team Providers Care Batchmaker Name Role Phone Ranjeet Houston DO Primary Care Provider [phone] Encounter Details Date Type Department Care Team (Late st Contact Info) Description 06/24/2020 1:16 PM EDT Hospital Encounter [facility] [address] [place] [address] Ebony Small PA [address] [place] [address] [email or web address] Social History Tobacco Use Types Packs/Day [...] on filedocumented in this encounter Care Teams Batchmaker Relationship Specialty Start Date End Date Ranjeet Houston DO [email or web address] PCP - General Internal Medicine 5/12/21 documented as of this encounter Additional Source Comments The information contained in this document represents components of the legal health record. It is not the complete legal health record.[facility]
--- OUTSIDE RECORDS SUMMARY | 2020-06-24 13:17 | XMS_ITS | Encounter Summary ---
Author Organization [facility] Address [address] [place] [address] [place] [address] Phone Care Team Providers Care Geological Aide Name Role Phone Ranjeet Houston DO Primary Care Provider [phone] Encounter Details Date Type Department Care Team (Late st Contact Info) Description 06/24/2020 1:17 PM EDT Hospital Encounter [facility] [address] [place] [address] Ebony Small PA [address] [place] [address] [email or web address] Social History Tobacco Use Types Packs/Day Years [...] on filedocumented in this encounter Care Teams Geological Aide Relationship Specialty Start Date End Date Ranjeet Houston DO [email or web address] PCP - General Internal Medicine 06/24/20 documented as of this encounter Additional Source Comments The information contained in this document represents components of the legal health record. It is not the complete legal health record.[facility]
--- OUTSIDE RECORDS SUMMARY | 2020-06-24 13:17 | XMS_ITS | Encounter Summary ---
Author Organization [facility] Address [address] [place] [address] [place] [address] Phone Care Team Providers Care Color Paste Mixer Name Role Phone Ranjeet Houston DO Primary Care Provider [phone] Encounter Details Date Type Department Care Team (Late st Contact Info) Description 06/24/2020 1:17 PM EDT Hospital Encounter [facility] [address] [place] [address] Ebony Small PA [address] [place] [address] [email or web address] Social History Tobacco Use Types Packs/Day [...] on filedocumented in this encounter Care Teams Color Paste Mixer Relationship Specialty Start Date End Date Ranjeet Houston DO [email or web address] PCP - General Internal Medicine 5/12/21 documented as of this encounter Additional Source Comments The information contained in this document represents components of the legal health record. It is not the complete legal health record.[facility]
--- NOTE | ~2024-11-08 | CT_ITS ---
EXAMINATION: CT LOW-DOSE SCREENING CHEST WITHOUT CONTRAST CLINICAL INFORMATION: 6-year-old female, prior smoker, quit 13 years ago, 37 pack years, lung cancer screening. COMPARISON: 10/27/2023, 12/13/2021. TECHNIQUE: Multidetector volumetric CT imaging of the chest is performed on a Siemens SOMATOM Definition scanner without contrast using low dose technique. Additional 2D coronal and sagittal reformatted images and axial 3D maximum intensity projection (MIP) images are generated on the CT workstation. This CT examination was performed using dose optimization techniques as appropriate, variously including the following: *Automated exposure control *Adjustment of mA and/or kV according to patient size (this includes techniques or standardized protocols for targeted exams where dose is matched to indication/reason for exam; i.e. extremities or head) *Use of iterative reconstruction technique FINDINGS: PULMONARY NODULES: There are numerous 2 to 3 mm nodules in both lungs, which are stable and unchanged from prior exams. There is no new or enlarging pulmonary nodule. LUNGS: The lungs are well pneumatized bilaterally. Mild centrilobular emphysema is present. No interstitial changes or abnormal consolidations. No abnormal groundglass opacities. Small airways appear normal. Central airways are patent. There is no pleural effusion or pneumothorax. MEDIASTINUM: The partially imaged thyroid is normal. There is no lymphadenopathy or mass. The aorta is moderately calcified and nonaneurysmal. The main pulmonary artery is normal in size. The heart is normal in size. There is no pericardial effusion. No esophageal abnormality. Small type I hiatus hernia present. CORONARY ARTERY CALCIFICATION: Moderate degree of coronary calcifications. CHEST WALL/AXILLA: There is no lymphadenopathy or mass. UPPER ABDOMEN: Imaged upper abdominal contents appear normal allowing for noncontrast low-dose technique. OSSEOUS STRUCTURES: There is no suspicious lytic or blastic bone lesion present. Moderate degenerative spinal changes are present. CT/CT lung screening IMPRESSION: 1. There are stable tiny lung nodules in both lungs measuring up to 3 mm. There is no new or enlarging pulmonary nodule. 2. There is no active lung disease. 3. Ancillary findings as discussed in the body the report. ASSESSMENT: 1. Lung-RADS Category 2: Benign appearance or behavior of nodules. 2. Lung-RADS Category S: None. RECOMMENDATION: Continued routine annual low-dose CT lung screening in 1 year is recommended. An order for CT CHEST LOW DOSE CANCER SCREENING ([id number]) can be placed. Electronically signed by: Jeevan José MD 11/08/2024 04:21 PM EDT
--- OUTSIDE RECORDS SUMMARY | 2024-11-08 16:01 | XMS_ITS | Clinical Summary ---
Author Organization [facility] Address [address] [place] [address] Phone Care Team Providers Care Purchase Analyst Name Role Phone Ranjeet [place] DO Primary Care Provider [phone] Allergies No known active allergies Medications amLODIPine (NORVASC) 10 MG tablet Take 10 mg by mouth daily. 05/10/2020 Active hydroCHLOROthiaz devang (HYDRODIURIL) 12.5 MG tablet Take 12.5 mg by mouth daily. 05/27/2020 Active LORazepam (ATIVAN) 1 MG tablet Take 1 mg by mouth daily as needed. 06/05/2020 Active lisinopril (PRINIVIL,ZESTRI L) 40 MG tablet Take 40 mg by mouth daily. 05/10/2020 Active lovastatin (MEVACOR) 20 MG tablet Take 20 mg by mouth daily. 05/10/2020 Active omeprazole (PRILOSEC) 20 MG capsule Take by mouth daily. 04/17/2020 Active sertraline (ZOLOFT) 50 MG tablet Take 50 mg by mouth daily. 04/17/2020 Active cyanocobalamin, vitamin B-12, (VITAMIN B12 ORAL) Take by mouth. Active aspirin 81 mg chewable tablet Take 81 mg by mouth daily. Active cholecalciferol, vitamin D3, (VITAMIN D3 ORAL) Take by mouth. Active Active Problems No known active problems Immunizations Immunization Administration Dates Next Due COVID-19 (Pre-12/05) Moderna Vaccine, mRNA, PF 0 04/10/2020 INFLUENZA, SPLIT VIRUS, TRIVALENT PF 11/16/2014 Influenza Quadrivalent Preservative Free IM 11/13,11/12/2015 Social History Tobacco Use Types Packs/Day Years [...] on file Sexual Orientation Not on file Last Filed Vital Signs Vital Sign Reading Time Taken Comments Blood Pressure 115/67 06/24/2020 12:42 PM EDT Pulse 77 06/24/2020 12:42 PM EDT Temperature 36.8 C (98.2 F) 06/24/2020 12:42 PM EDT Respiratory Rate 16 06/24/2020 12:42 PM EDT Oxygen Saturation 97% 06/24/2020 12:42 PM EDT Inhaled Oxygen Concentration - - Weight 115.7 kg (255 lb) 06/24/2020 12:42 PM EDT Height 165.1 cm (5' 5 ) 06/24/2020 12:42 PM EDT Body Mass Index 42.43 06/24/2020 12:42 PM EDT Plan of Treatment Health Maintenance Due Date Last Done Comments Adult Td,Tdap Booster 1954 CREATININE LEVEL 1954 LIPID PANEL 1954 POTASSIUM LEVEL 1954 DEPRESSION SCREENING 1966 SMOKING Hx and SMOKELESS TOBACCO SCREENING 04/21/1967 HEPATITIS C SCREENING 1972 MAMMOGRAM 1994 COLOGUARD 04/21/1999 COLONOSCOPY 04/21/1999 COLORECTAL CANCER SCREENING 04/21/1999 FIT TEST 04/21/1999 FOBT 04/21/1999 SIGMOIDOSCOPY 04/21/1999 VIRTUAL COLONOSCOPY 04/21/1999 PNEUMOCOCCAL VACCINES (50+ years) (1 of 1 - PCV) 2004 ZOSTER VACCINES (1 of 2) 2004 OSTEOPOROSIS SCREENING INITI AL (ONE-TIME) 04/21/2019 INFLUENZA VACCINE (#1) 2024 9, 11/12/2015, 11/16/2014 COVID-19 VACCINE (2 - 2024-2 6 season) 2024 04/10/2020 RSV VACCINE (1 - 1-dose 75+ series) 2029 HEPATITIS A VACCINES Aged Out No long er eligible based on patient's age to complete this topic HIB VACCINES Aged Out No longer eligi ble based on patient's age to complete this topic MENINGOCOCCAL VACCINES (ACWY) Aged Out No longer eligible based on patient's age to complete this topic MENINGOCOCCAL VACCINES (B) Aged Out N o longer eligible based on patient's age to complete this topic Medical Devices Not on file Insurance MEDICARE PART A & B [employer] MEDEX SUPPLEMENT MEDICARE PART A & B [employer] MEDEX SUPPLEMENT MEDICARE PART A & B [employer] MEDEX SUPPLEMENT MEDICARE PART A & B [employer] MEDEX SUPPLEMENT MEDICARE PART A & B [employer] MEDEX SUPPLEMENT MEDICARE PART A & B [employer] MEDEX SUPPLEMENT MEDICARE PART A & B [employer] MEDEX SUPPLEMENT MEDICARE PART A & B [employer] MEDEX SUPPLEMENT MEDICARE PART A & B [employer] CROSS MEDEX SUPPLEMENT Care Teams Purchase Analyst Relationship Specialty Start Date End Date Ranjeet [place] DO [email or web address] PCP - General Internal Medicine 06/24/20 Additional Source Comments The information contained in this document represents components of the legal health record. It is not the complete legal health record.[facility]
--- OUTSIDE RECORDS SUMMARY | 2024-11-08 16:02 | XMS_ITS | Patient Health Record ---
Author Organization [facility] Address [address] [place] [address] Care Team Providers Care Bilingual Manager Name Role Phone Ranjeet [place] MD Primary Care Provider Gaviota Fishman Unavailable [phone] Allergies Allergen (clinical drug ingredient) Drug/Non Drug [...] Activ e Walking Boot/Pneumatic As directed Wear Daily; Duration: Until further notice 01/31/2017 Unknown hydroCHLOROthiazide 12.5 MG 1 capsule in the morning Orally Once a day; Duration: 30 day(s) morning Active Aleve Unknown B12 Folate Active Aspirin Unknown Vitamin D 2000 UNIT Orally Unknown Xarelto 20 MG 1 tablet with food Orally Once a day; Duration: 30 day(s) Active Melatonin 3 MG 1 tablet at bedtime as needed Orally Once a day; Duration: 30 day(s) Active Zoloft 50 MG Orally [...] primary osteoarthritis of the ankle and/or foot (619746925) Primary osteoarthrit is, left ankle and foot (M19.072) Active confirmed Problem Acquired hammer toe of right foot (9154747566724849) Other hammer toe(s) (acquired), right foot (M20.41) Active confirmed Problem Acquired hammer toe of left foot (5042157970610959) Other hammer toe(s) (acquired), left foot (M20.42) Active confirmed Plan Of Treatment Pending Test Test Name Order Date X ray : Ankle, left 3V 06/16/2022 X ray : Foot, left 3V 06/16/2022 X ray : Foot, left 3V 01/31/2017 X ray : Foot, right 3V 06/16/2022 Next Appt Details Provider Name:Gaviota Kahlil hoyt, 11/27/2024 02:45:00 PM, [address] [place], [address], Insurance Providers Payer Name Payer Address Payer Phone Subscriber Number Group Number Insured Name Patient Relationship to Insured Coverage Start Date Coverage End Date [facility] 65 Medicare Preferred [address] [place] [address] [phone] [id number] Ernestina Reyes Self - patient is [...]
--- OUTSIDE RECORDS SUMMARY | 2024-11-08 16:02 | XMS_ITS | Encounter Summary ---
Author Organization [facility] Address [address] [address] Phone Care Team Providers Care Personnel And Payroll Technician Name Role Phone Ranjeet [place] DO Primary Care Provider [phone] Reason for Referral * MRI/CAT Scan - Closed Specialty Diagnoses / Procedures Referred By Aissatou mccallum Referred To Contact Radiology Diagnoses Abdominal aortic aneurysm (AAA) without rupture, unspecified part Procedures CT Angio Abdomen/Pelvis Ranjeet [place] DO Phone: tel: fax: [email or web address] Referral ID Status Reason Start Date Expiration Date Visits Re quested Visits Authorized [id number] Closed 10/31/2023 10/30/2024 1 1 Encounter Details Date Type Department Care Team (Late st Contact Info) Description 10/31/2023 Transcribe Orders Virtual Department [address] [place] [address] Ranjeet [place] DO [address] [facility] [place] [address] [email or web address] Abdominal aortic aneurysm (AAA) without rupture, unspecified part (Primary Dx) Social History Tobacco Use Types Packs/Day Years Used Date Smoking Tobacco: Former Smokeless Tobacco: Never Education Answer Date Recorded Are you interested in more education? Not on candelaira e 06/11/2022 Are you concerned about learning? [...] as of this encounter Plan of Treatment Scheduled Orders Name Type Priority Associated Diagnoses Orde r Schedule CT Angio Abdomen/Pelvis Imaging Routine Abdominal Aortic Aneurysm (Aaa) Without Rupture, Unspecified Part Expected: 10/31/2023, Expires: 10/30/2024 documented as of this encounter Visit Diagnoses Diagnosis Abdominal aortic aneurysm (AAA) without rupture, unspecified part- Primary documented in this encounter Care Teams Personnel And Payroll Technician Relationship Specialty Start Date End Date Ranjeet [place] DO [email or web address] PCP - General Internal Medicine 06/24/20 documented as of this encounter Additional Source Comments The information contained in this document represents components of the legal health record. It is not the complete legal health record.[facility]
--- OUTSIDE RECORDS SUMMARY | 2024-11-08 16:02 | XMS_ITS | Patient Health Record ---
Author Organization [facility] Address [address] [place] [address] Care Team Providers Care Pharmaceutical Plant Operator Name Role Phone Rosemarie Ranjeet Primary Care Provider Lemuel rGayson Jr Unavailable Allergies No Known Allergies Reason For Referral [...] Problem Status W/U Status Risk Notes Problem 315364699 Colon cancer screening (Z12.11) Active confirmed Problem 479828786 Irritable bowel syndrome with diarrhea (K58.0) Active confirmed Problem Iron deficiency anemia (93136367) Iron deficiency anemia (D50.9) Active confirmed Problem 145479356 Gastroesophageal reflux disease without esophagitis (K21.9) Active confirmed Problem 12395369 Gastric polyp (K31.7) Active confirmed Problem Benign neoplasm of stomach (88669785) Gastric polyps (K31.7) Active confirmed Problem 87139429 Iron deficiency anemia, unspecified iron deficiency anemia [...] Insured Coverage Start Date Coverage End Date [facility] [address] [place] [address] [id number] CARLEEN PERRY Self - patient is the insured Medical (General) History Medical History History ICD Code Colonoscopy 07/01/16, hyperpl astic polyp, five-year followup because of family history of colon polyps GERD depression Elevated cholesterol Hypertension Oral HSV infection Arthritis Surgical History Surgery Date(Month/Year) breast biopsies x2 tubal ligation umbilical hernia repair 2015
--- OUTSIDE RECORDS SUMMARY | 2024-11-08 16:02 | XMS_ITS | Encounter Summary ---
Author Organization [facility] Address [address] [facility] [address] [place] [address] Phone Care Team Providers Care Cake Knocker Name Role Phone Christinayosef Ranjeet Dc DO Primary Care Provider [phone] Encounter Details Date Type Department Care Team (Latest Contact Info) Description 05/23/2023 Transcribe Orders Virtual Department [address] [place] [address] Marah Gordillo PA [address] [facility] [place] [address] Cough, unspecified type (Primary Dx) Social History Tobacco Use Types [...] on file documented as of this encounter Visit Diagnoses Diagnosis Cough, unspecified type- Primary documented in this encounter Care Teams Cake Knocker Relationship Specialty Start Date End Date Ranjeet [place] DO PCP - General Internal Medicine 06/24/20 documented as of this encounter Additional Source Comments The information contained in this document represents components of the legal health record. It is not the complete legal health record.[facility]
== END 2024-11-08 15:36 | disposition home or self-care (01) ==
LOC: HO.CT 15:35
PROVIDERS: PCP Internal Medicine; Visit Provider Physician Assistant Medical
DX: Z12.2 Encounter for screening for malignant neoplasm of respiratory organs (principal); Z87.891 Personal history of nicotine dependence
CPT/HCPCS: 71271

== ENCOUNTER → 2024-11-08 15:37 | Outpatient (BNV) | payer MEDICARE, SELFPAY | PROVIDERS: PCP Internal Medicine; Visit Provider Radiology Diagnostic Radiology | DX: Z12.2 Encounter for screening for malignant neoplasm of respiratory organs (principal); Z87.891 Personal history of nicotine dependence; R91.8 Other nonspecific abnormal finding of lung field | CPT/HCPCS: 71271 ==

== ENCOUNTER 2024-12-25 13:33 | Outpatient (REF) | payer MEDICARE, SELFPAY ==
--- OUTSIDE RECORDS SUMMARY | 2020-06-24 12:16 | XMS_ITS | Encounter Summary ---
Author Organization [facility] Address [address] [facility] [address] [place] [address] Phone Care Team Providers Care Automotive Dismantler Name Role Phone Ranjeet Houston DO Primary Care Provider [phone] Encounter Details Date Type Department Care Team (Late st Contact Info) Description 06/24/2020 1:16 PM EDT Hospital Encounter [facility] [address] [place] [address] Ebony Small PA [address] [address] [email or web address] Social History Tobacco Use Types Packs/Day Years Used Date Smoking Tobacco: Former Smokeless Tobacco: Never Education Answer Date Recorded Are you interested in more education? Not on candelaria e 06/11/2022 Are you concerned about learning? Not on file 06/11/2022 No 06/11/2022 No 06/11/2022 Digital Access Answer Date Recorded No 07/06/2022 No 07/06/2022 No 07/06/2022 Reliable internet access at home? Not on file 07/06/2022 Device with a working camera? Not on file Comments Unknown Sex and Gender Information Value Date Recorded Sex Assigned at Not on file Legal Sex Female 12:25 PM EDT Gender Identity Not on file Sexual Orientation Not on file documented as of this encounter Plan of Treatment Not on file documented as of this encounter Procedures Procedure Name Priority Date/Time Associated Diagnosis Comments XR WRIST 3 OR MORE VIEWS (LEFT) Urgent/patient waiting 06/24/2020 1:29 PM EDT Sprain of left thumb, unspecified site of digit, initial encounter documented in this encounter Results * XR WRIST 3 OR MORE VIEWS (LEFT) (06/24/2020 1:29 PM EDT) Anatomical Region Laterality Modality Wrist Left Computed Radiogr aphy 06/24/2020 1:39 PM EDT Impressions 06/24/2020 1:43 PM EDT No acute osseous abnormality. Narrative 06/24/2020 1:43 PM EDT TECHNIQUE: XR WRIST 3 OR MORE VIEWS (LEFT), XR HAND 3 OR MORE VIEWS (LEFT) COMPARISON: None. FINDINGS: Left wrist: No acute fracture or dislocation corticated osseous fragment adjacent to the ulnar styloid likely related to remote trauma. Degenerative changes of the thumb carpometacarpal joint. Intact soft tissues. Left hand: No acute fracture or dislocation. Slight irregularity of the fifth metacarpal likely related to remote trauma. Mild interphalangeal degenerative changes, particularly the small finger. Intact soft tissues. Procedure Note Jessie Olivera MD - 06/24/2020 TECHNIQUE: XR WRIST 3 OR MORE VIEWS (LEFT), XR HAND 3 OR MORE VIEWS(LEFT) COMPARISON: None. FINDINGS: Left wrist: No acute fracture or dislocation corticated osseous fragmentadjacent to the ulnar styloid likely related to remote trauma.Degenerative changes of the thumb carpometacarpal joint. Intact softtissues. Left hand: No acute fracture or dislocation. Slight irregularity of thefifth metacarpal likely related to remote trauma. Mild interphalangealdegenerative changes, particularly the small finger. Intact softtissues. IMPRESSION: No acute osseous abnormality. Ebony LINDA IMG XR UPPER EXTREMITY Final Result documented in this encounter Visit Diagnoses Not on filedocumented in this encounter Care Teams Automotive Dismantler Relationship Specialty Start Date End Date Ranjeet Houston DO [email or web address] PCP - General Internal Medicine 06/24/20 documented as of this encounter Additional Source Comments The information contained in this document represents components of the legal health record. It is not the complete legal health record.[facility]
--- OUTSIDE RECORDS SUMMARY | 2020-06-24 12:17 | XMS_ITS | Encounter Summary ---
Author Organization [facility] Address [address] [place] [address] [place] [address] Phone Care Team Providers Care Environmental Services Technician Name Role Phone Ranjeet Houston DO Primary Care Provider [phone] Encounter Details Date Type Department Care Team (Late st Contact Info) Description 06/24/2020 1:17 PM EDT Hospital Encounter [facility] [address] [place] [address] Ebony Small PA [address] [address] [email or web address] Social History Tobacco Use Types Packs/Day Years [...] Name Priority Date/Time Associated Diagnosis Comments XR FOOT 3 OR MORE VIEWS (LEFT) Urgent/patient waiting 06/24/2020 1:29 PM EDT Closed fracture of base of fifth metatarsal bone of left foot documented in this encounter Results * XR FOOT 3 OR MORE VIEWS (LEFT) (06/24/2020 1:29 PM EDT) Anatomical Region Laterality Modality Foot Left Computed Radiogr aphy 06/24/2020 1:36 PM EDT Impressions 06/24/2020 1:39 PM EDT Nondisplaced fifth metatarsal base fracture with likely extension to the tarsometatarsal joint. Narrative 06/24/2020 1:39 PM EDT TECHNIQUE: XR FOOT 3 OR MORE VIEWS (LEFT) COMPARISON: None. FINDINGS: Diffuse osteopenia. Nondisplaced fracture at the fifth metatarsal base with likely extension to the tarsometatarsal joint. Mild degenerative changes of the great toe metatarsophalangeal joint. Intact soft tissues. Procedure Note Jessie Olivera MD - 06/24/2020 TECHNIQUE: XR FOOT 3 OR MORE VIEWS (LEFT) COMPARISON: None. FINDINGS: Diffuse osteopenia. Nondisplaced fracture at the fifth metatarsal basewith likely extension to the tarsometatarsal joint. Mild degenerativechanges of the great toe metatarsophalangeal joint. Intact soft tissues. IMPRESSION: Nondisplaced fifth metatarsal base fracture with likely extension to thetarsometatarsal joint. Ebony LINDA IMG XR LOWER EXTREMITY Final Result documented in this encounter Visit Diagnoses Not on filedocumented in this encounter Care Teams Environmental Services Technician Relationship Specialty Start Date End Date Ranjeet Houston DO [email or web address] PCP - General Internal Medicine 06/24/20 documented as of this encounter Additional Source Comments The information contained in this document represents components of the legal health record. It is not the complete legal health record.[facility]
--- OUTSIDE RECORDS SUMMARY | 2020-06-24 12:17 | XMS_ITS | Encounter Summary ---
Author Organization [facility] Address [address] [facility] [address] [place] [address] Phone Care Team Providers Care Feed House Supervisor Name Role Phone Ranjeet Houston DO Primary Care Provider Encounter Details Date Type Department Care Team (Late st Contact Info) Description 06/24/2020 1:17 PM EDT Hospital Encounter [facility] [address] [place] [address] Ebony Small PA [address] [address] [email or web address] Social History Tobacco Use Types Packs/Day [...] Name Priority Date/Time Associated Diagnosis Comments XR HAND 3 OR MORE VIEWS (LEFT) Urgent/patient waiting 06/24/2020 1:30 PM EDT Sprain of left thumb, unspecified site of digit, initial encounter documented in this encounter Results * XR HAND 3 OR MORE VIEWS (LEFT) (06/24/2020 1:30 PM EDT) Anatomical Region Laterality Modality Hand Left Computed Radiogr aphy 06/24/2020 1:39 PM [...] on filedocumented in this encounter Care Teams Feed House Supervisor Relationship Specialty Start Date End Date Ranjeet Houston DO [email or web address] PCP - General Internal Medicine 06/24/20 documented as of this encounter Additional Source Comments The information contained in this document represents components of the legal health record. It is not the complete legal health record.[facility]
--- OUTSIDE RECORDS SUMMARY | 2024-12-25 16:25 | XMS_ITS | Patient Health Record ---
Author Organization [facility] Address [address] [place] [address] Care Team Providers Care Validation Software Facilitator Name Role Phone Ranjeet Houston Primary Care Provider Lemuel Grayson Jr Unavailable Allergies No Known Allergies Reason [...] at 5:00 p.m. the day before the procedure; Duration: 1 day 10/14/2021 Active hydroCHLOROthiazide 12.5 MG 1 capsule in the morning Orally Once a day; Duration: 30 day(s) Active Celecoxib 200 MG 1 capsule with food Orally Once a day; Duration: 30 day(s) Active LORazepam 1 MG 1 tablet at bedtime as needed Orally Once a day Active valACYclovir HCl 500 MG 1 tablet Orally Once a day; Duration: 10 day(s) Active Melatonin 5 MG 1 tablet in the evening Orally Once a day; Duration: 30 day(s) Active Immunizations Vaccine Route Administration [...] Problem Status W/U Status Risk Notes Problem Colon cancer screening (546998703) Colon cancer screening (Z12.11) Active confirmed Problem Irritable bowel syndrome with diarrhea (661172170) Irritable bowel syndrome with diarrhea (K58.0) Active confirmed Problem Iron deficiency anemia (60688180) Iron deficiency anemia (D50.9) Active confirmed Problem Gastroesophageal reflux disease without esophagitis (414616668) Gastroesophageal reflux disease without esophagitis (K21.9) Active confirmed Problem Gastric polyp (08190263) Gastric polyp (K31.7) Active confirmed Problem Benign neoplasm of stomach (58904437) Gastric polyps (K31.7) Active confirmed Problem Iron deficiency anemia (51245863) Iron deficiency anemia, unspecified iron deficiency anemia [...] Insured Coverage Start Date Coverage End Date [employer] [address] [place] [address] [phone] [id number] CARLEEN PERRY Self - patient is the insured Medical (General) History Medical History History ICD Code Colonoscopy 07/01/16, hyperpl astic polyp, five-year followup because of family history of colon polyps GERD depression Elevated cholesterol Hypertension Oral HSV infection Arthritis Surgical History Surgery Date(Month/Year) breast biopsies x2 tubal ligation umbilical hernia repair 2016
--- OUTSIDE RECORDS SUMMARY | 2024-12-25 16:26 | XMS_ITS | Clinical Summary ---
Author Organization [facility] Address [address] [place] [address] Phone Care Team Providers Care Nuclear Supervising Operator Name Role Phone Ranjeet Houston DO Primary Care Provider [phone] Allergies No known active allergies Medications amLODIPine [...] file Insurance MEDICARE PART A & B [employer] [place] [employer] SU[employer] MEDICARE PART A & B [employer] SU[employer]MENT MEDICARE PART A & B [employer] SUPPLEMENT MEDICARE PART A & B [employer] SU[employer]MENT MEDICARE PART A & B [employer] SU[employer]MENT MEDICARE PART A & B [employer] SU[employer]LEMENT MEDICARE PART A & B [employer] SU[employer]MENT MEDICARE PART A & B [employer] SU[employer] MEDICARE PART A & B [employer] SUPPLEMENT Care Teams Nuclear Supervising Operator Relationship Specialty Start Date End Date Ranjeet Houston DO [email or web address] PCP - General Internal Medicine 06/24/20 Additional Source Comments The information contained in this document represents components of the legal health record. It is not the complete legal health record.[facility]
--- OUTSIDE RECORDS SUMMARY | 2024-12-25 16:26 | XMS_ITS | Data Portability ---
Author Organization [facility], Telehealth Patient Home Address [address] [place] [address] Assessment Encounter Date Assessment Date Assessment LastModified [...] Organization Details Last Modified Time Details Appointments ANNUAL EXAM 2025 01:30P ALEXEI CRAVEN Not available Not available Not available Lab TSH + free T4, serum 2024 025 [facility], [address] [place] [address], [address], 12/18/2024 14:11:49 CBC w/ auto diff 2024 025 [facility], [address] [place] [address], [address], 12/18/2024 14:11:49 iron + TIBC + ferritin, serum 2024 025 [facility], [address] [place] [address], [address], 12/18/2024 14:11:49 hemoglobi n A1c, QN, blood 2023 024 [facility], [address] [place] [address], [address], 12/18/2023 13:48:01 CMP, serum or plasma 2023 024 [facility], [address] [place] [address], [address], 12/18/2023 13:48:01 iron + TIBC + ferritin, serum 2023 024 [facility], [address] [place] [address], [address], 12/08/2023 13:52:36 CBC w/ auto diff 2023 024 [facility], [address] [place] [address], [address], 12/08/2023 13:52:36 iron + TIBC + ferritin, serum 2022 023 [facility], [address] [place] [address], [address], 06/01/2023 12:38:58 iron + TIBC + ferritin, serum 2023 024 [email or web address] [facility], [address] [place] [address], [address], 06/01/2023 12:38:58 urinalysi s complete, reflex culture 2022 023 [facility], [address] [place] [address], [address], 01/03/2023 12:04:46 iron + TIBC + ferritin, serum 2022 023 [facility], [address] [place] [address], [address], 08/26/2022 12:00:26 CBC w/ auto diff 2022 023 [facility], [address] [place] [address], [address], 07/21/2022 11:36:20 CBC w/ auto diff 2022 023 [facility], [address] [place] [address], [address], 08/26/2022 12:00:26 CBC w/ auto diff 2022 023 [facility], [address] [place] [address], [address], 09/29/2022 12:04:48 iron + TIBC + ferritin, serum 2022 023 [facility], [address] [place] [address], [address], 09/29/2022 12:04:48 iron + TIBC + ferritin, serum 2022 023 [facility], [address] [place] [address], [address], 09/29/2022 12:04:47 CBC w/ auto diff 2022 023 [facility], [address] [place] [address], [place], [address], 09/29/2022 12:04:48 Referral gynecolog ist referral 2022 023 [facility], [address] [place] [address] [place], [id number], 12/06/2022 08:28:12 Procedures None recorded. Surgeries None recorded. Imaging CT, chest, w/o contrast 2022 023 [facility], [address] [place] [address], [address], 12/13/2022 15:25:47 CT, chest, w/o contrast 2021 022 [email or web address] [facility], [address] [place] [address], [address], 12/03/2021 16:23:53 Medication Orders lorazepam 1 mg tablet 2024 025 [id number], [address] [place], [address], 12/18/2024 14:02:07 ferrous sulfate 325 mg (65 mg iron) tablet 2022 023 [id number], [address] [place], [place], [id number], 07/12/2022 15:36:59 Patient TargetsNo targets recorded. Patient InstructionsNo instructions recorded. 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 [email or web address] [facility] [address] [place], [address], 12/08/2021 13:38:27 12/21/19 22 12/13/2021 CT, chest , w/o contr ast No observ ation record ed. [email or web address] [facility] (Medical Records) [address] [facility], [place], [address], 12/20/2021 14:45:24 02/04/20 22 01/25/2022 nucle ar stres s test No observ ation record ed. [facility] [address] [place], [address], 02/03/2022 11:38:06 06/15/19 23 06/07/2022 MAMMO , scree savana, digit al, bilat eral No observ ation record ed. [email or web address] [address] [place], [id number], 06/15/2022 10:44:43 12/14/19 23 12/08/2022 CT, chest , w/o contr ast No observ ation record ed. [facility] [address] [facility], [place], [address], 12/13/2022 16:08:13 07/03/19 24 06/14/2023 MAMMO , nj sawant, digit al, bilat eral No observ ation record ed. [address] [place], [address], 07/03/2023 12:29:49 08/23/19 24 08/03/2023 US, echoc ardio gram No observ ation record ed. [facility] [address] [place], [address], 08/23/2023 19:53:35 10/27/19 24 10/23/2023 US, nj sawant for abdom inal aorti c aneur ysm No observ ation record ed. [email or web address] [facility] [address] [place], [address], 10/30/2023 10:47:03 11/09/19 24 11/01/2023 US, duple x, carot id arter y No observ ation record ed. [email or web address] [facility] [address] [place], [address], 11/10/2023 11:06:20 12/02/19 24 11/23/2023 CT, angio gram, abdom en + pelvi s, w/ contr ast No observ ation record ed. [email or web address] [facility] (Medical Records) [address] [place], [address], 12/03/2023 21:12:32 12/27/19 24 10/27/2023 CT, angio gram, chest , w/o contr ast No observ ation record ed. [email or web address] [facility] (Medical Records) [address] [place], [address], 12/27/2023 08:41:01 06/25/1906/19/2024 MAMMO , nj ellisg, digit al, bilat eral No observ ation record ed. [email or web address] [facility] [address] [facility] [place], [id number], 06/24/2024 16:51:45 11/09/1911/08/2024 imagi ng inter preta tion No observ ation record ed. [email or web address] [facility] (Medical Records) [address] [place], [address], 11/08/2024 16:36:01 Result Notes None recorded. Problems Name Problem SNOMED Code Status Onset Date Resolution Date Notes Provider Name and Address Organization Details Recorded Time Essential hypertCompuMedi on 11636025 Active 2017 Not Available [facility] 11/03/202 1 14:52:08 Hyperchole sterolemia 01251128 Active 2017 Not Available [facility] 1 14:52:08 Depressive disorder 47036379 Active 2017 Not Available [facility] 1 14:52:08 Osteoarthr itis 455127461 Active 2017 Not Available [facility] 1 14:52:08 Acid reflux 777657963 Active 2017 Not Available [facility] 1 14:52:08 Alkaline phosphatas e above reference range 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 2019 Not Available [facility] 14:52:08 Impaired fasting glycemia 615096530 Active 2019 Not Available [facility] 1 14:52:08 Iron deficiency anemia 58605646 Active 2022 ALEXEI OVIEDO [address] [place] [address], [address], [facility] 5 14:04:17 Dyspnea 208895917 Active 2022 ALEXEI OVIEDO [address] [place] [address], [address], [facility] 3 15:31:17 Anemia 502843754 Active 2022 ALEXEI OVIEDO [address] [place] [address], [address], [facility] 3 13:45:03 Acute sinusitis 05349222 Active 2023 ALEXEI OVIEDO [address] [place] [address], [address], [facility] 4 15:59:43 Cough 27629536 Active 2023 ALEXEI OVIEDO [address] [place] [address], [address], [facility] 4 10:46:10 Abdominal aortic aneurysm 781108501 Active 2023 Ranjeet Houston DO [address] [place] [address], [address], [facility] 4 21:53:35 Anxiety 60955911 Active 2024 ALEXEI OVIEDO [address] [place], [address], [facility] 5 14:03:46 Problem Notes None recorded. Procedures Surgical History Date Name Laterality Status Provider Name and Address Organization Details Recorded Time Tubal Ligation completed Oanh Chang NP, S [address] [place] [address], [address], [facility] 11/29/2017 16:47:26 Breast Biopsy completed Oanh phillip NP, S [address] [place] [address], [address], [facility] 11/29/2017 16:47:46 Hernia Repair completed Ilana Arellaon [facility] 11/05/2018 08:32:26 Imaging Results None recorded. Procedure Notes None recorded. Medical Equipment None Reported. Allergies Allergen ID Allergen Name Allergen Category Reaction Reaction Severity Criticality Documentation Date Start Date Code Code System Note Provider Name and Address Organization Details Recorded Time 7389 acetamino phen / oxycodone medicatio n rash Not available Not available 12/05/2022 31684 3 RxNorm Snehal Love [facility] 3 13:29:16 Medications Name Sig Start Date [...] completed Not Available Not Available Not Available amoxicillin 500 mg capsule TAKE 1 CAPSULE BY MOUTH 3 TIMES A DAY FOR 7 DAYS 12/18 completed Not Available Not Available Not Available [...] mg tablet TAKE 1 TABLET BY MOUTH 1 TIME EACH DAY. active Not Available Not Available No t [...] nded release 24 hr TAKE 2 TABLETS (50 MG TOTAL) BY MOUTH 1 (ONE) TIME EACH DAY. DO NOT CRUSH OR CHEW. 12/18 completed Not Available Not Available Not Available lorazepam 1 mg tablet TAKE 2 TABLETS BY MOUTH EVERY DAY NEEDED AT BEDTIME 2024 active Not Available Not Available Not Avai lable Aspir-81 mg tablet,shauna yed release Take 1 [...] completed Not Available Not Available Not Available Multaq 400 mg tablet TAKE 1 TABLET BY MOUTH 2 TIMES A DAY WITH MEALS. active Not Available Not Available No t Available Xarelto 20 mg tablet TAKE 1 TABLET BY MOUTH EVERY DAY active Not Available Not Available No t Available Vitamin B12 active Not Available Not A vailable Not Available Fluarix Quad 8851-8264 (PF) 60 mcg (15 mcg x 4)/0.5 mL IM syringe 11/10 completed Not Available Not Available Not Available marijuana (cannabis) oral edible Take by oral route. active Not Available Not Available No t Available Zepbound 2.5 mg/0.5 mL subcutaneou s pen injector Inject 2.5 mg every week by subcutane ous route as directed for 30 days. 12/18 completed Not Available Not Available Not Available Vitals Date Recorded Body height Body mass index (BMI) Body weight Heart rate Oxygen saturation Oxygen saturation in Arterial blood by Pulse oximetry Systolic And Diastolic Provider Name and Address Organization Details Last Updated DateTime 3 167.01 cm 41.2 kg/m2 563411. 31 g 73 /min 98 % 98 % 126/80 mm[Hg] ALEXEI OVIEDO [address] [place], [address], [facility] 3 15:05:45 Date Recorded Body height Body mass index (BMI) Body weight Oxygen saturation Oxygen saturation in Arterial blood by Pulse oximetry Heart rate Systolic And Diastolic Provider Name and Address Organization Details Last Updated DateTime 2 167.01 cm 41.2 kg/m2 152617. 31 g 97 % 97 % 64 /min 108/58 mm[Hg] Jessica Smith [facility] 2 13:38:44 Date Recorded Body height Body mass index (BMI) Body weight Heart rate Oxygen saturation Oxygen saturation in Arterial blood by Pulse oximetry Systolic And Diastolic Provider Name and Address Organization Details Last Updated DateTime 3 167.01 cm 38.8 kg/m2 709563. 5 g 69 /min 94 % 94 % 118/56 mm[Hg] Snehal Love [facility] 3 13:27:59 Date Recorded Body height Body mass index (BMI) Body weight Heart rate Oxygen saturation Oxygen saturation in Arterial blood by Pulse oximetry Systolic And Diastolic Provider Name and Address Organization Details Last Updated DateTime 4 167.01 cm 40.9 kg/m2 153707. 2 g 67 /min 95 % 95 % 112/68 mm[Hg] July Tip [facility] 4 13:36:04 Date Recorded Body height Body mass index (BMI) Body weight Heart rate Oxygen saturation Oxygen saturation in Arterial blood by Pulse oximetry Systolic And Diastolic Provider Name and Address Organization Details Last Updated DateTime 5 165.1 cm 41.8 kg/m2 805994. 68 g 68 /min 95 % 95 % 120/68 mm[Hg] Keiko Lopez [facility] 5 13:29:55 Social History Question Answer Notes LastModified by Organizat ion Details LastModified Time Tobacco Smoking Status Former Smoker Jane du [facility] 11/29/2017 16:12:43 What Was The Date Of Your Most Recent Tobacco Screening? 12/18/2024 [email or web address] Information not available 12/18/2024 How Much Tobacco Do You Smoke? 1 PPD Information not available 11/05/2018 How Many Years Have You Smoked Tobacco? 30 Information not available 11/05/2018 Sex: Unknown Functional Status Question Answer Note LastModified by Organizat ion Details LastModified Time Do you or have you ever used any other forms of tobacco or nicotine? No [email or web address] Information not available 07/12/2022 Do you or have you ever used smokeless tobacco? Never used smokeless tobacco Information not available 11/05/2018 Do you or have you ever used e-cigarettes or vape? Never used electronic cigarettes Information not available 11/05/2018 Mental Status None recorded. Family History Relationship Description Onset Age of this Age Resolved Age Notes LastModified by Organization Details LastModified Time Mother Congestive heart failure 93 [email or web address] Not available 2017 16:45:23 Father Parkinson's disease 65 [email or web address] Not available 2017 16:45:42 Sister Malignant neoplasm of lung [facility] Not available 2017 16:46:11 Brother Neoplasm of [...] or 50 mcg/0.25mL dose 1 completed Natasha Brewercarejason du [facility] 12/01/2020 11:22:22 COVID-19, mRNA, LNP-S, PF, 100 mcg/0.5mL dose or 50 mcg/0.25mL dose 1 completed Natasha du [facility] 12/01/2020 11:22:28 COVID-19, mRNA, LNP-S, PF, 100 mcg/0.5mL dose or 50 mcg/0.25mL dose 1 completed Nidia du [facility] 12/16/2020 14:54:31 Influenza, split virus, quadrivalent, preservative 1 completed Jessica du [facility] 12/01/2021 08:14:38 Influenza, split virus, quadrivalent, preservative 9 completed Ranjeet Houston, [address], [address] 11/25/2018 10:36:10 Influenza, split virus, quadrivalent, preservative 0 completed Jane Meka du [facility] 11/08/2019 14:01:33 Past Encounters Encounter ID Performer Location Encounter Start Date Encounter Closed Date Diagnosis/Indication Diagnosis SNOMED-CT Code Diagnosis ICD10 Code Diagnosis IMO Codes Diagnosis Note [id number] Ranjeet Houston [facility] [address] [facility],[place] [address] 11/29/2017 16:04:16 12/04/2017 09:56:15 Hypercholesterolemia 27815561 E78.00 Essential hypertension 77485484 I10 Vitamin D deficiency 347 41602 E55.9 Osteoarthritis 793110896 M19.90 Does not want tramadol, will continue Aleve prn Depressive disorder 3548 9007 F32.89 Acid reflux 960081716 K2 1.9 on omeprazole Obesity 687729534 E66.9 restart weight watchers [id number] Ranjeet Houston [facility] [address] [facility],[place] [address] 08/29/2018 08:50:03 08/29/2018 09:28:54 Essential hypertension 22171254 I10 History of tobacco use 7141869583 103 Z87.891 consider pulm at [place] for LDCT Dyspnea on exertion 6084 5006 R06.09 Vitamin D deficiency 347 65283 E55.9 [id number] Ranjeet Houston [facility] [address] [facility],[place] [address] 11/05/2018 15:13:06 11/05/2018 15:57:34 Adult health examination 214943836 Z00.00 Active or passive immunization 814390063 Z23 will have flu shot Hyperglycemia 06106534 R 73.9 Proteinuria 80434397 R80 .9 Alkaline p hosphatase above reference range 714465947 R74.8 Body mass index 40+ - severely obese 796200114 Z68.41 Hypercholesterolemia 136 56203 E78.00 well controlled on lovastatin Essential hypertension 55106859 I10 well controlled Insomnia 138058485 G47.0 0 uses lorazepam almost every night to help her fall asleep Gastroesop hageal reflux disease 333331473 K21.9 takes that daily Dyspnea on exertion 6084 5006 R06.09 persists awaiting pft results [id number] Ranjeet Houston [facility] Internal [facility] [address] [facility], [place] [address] 11/11/2019 09:32:49 11/11/2019 12:15:12 Adult health examination 531115618 Z00.00 BP is fine today will continue to monitor Active or passive immunization 871939457 Z23 patient refuses the shingles vaccine already got a flu shot last monday Screening for malignant neoplasm of respiratory tract 661524205 Z12.2 the patient smoked for 30 years > at least a pack to two packs per day for 30 years, recently quit 9 years ago 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 B00.1 has recurrent cold sores would like to try script see if it helps Low back pain 588482686 M54.5 uses these for chronic back pain which helps needs refill [id number] Ranjeet Houston [facility] [address] [facility],[place] [address] 11/30/2020 15:31:42 11/30/2020 16:38:12 Active or passive immunization 952867274 Z23 patient refuses the shingles vaccine already got a flu shot last monday Adult heal th examination 888350704 Z00.00 BP is fine today will continue to monitor has fu with cardiology on monday Abnormal weight gain 161 383953 R63.5 will fu with lab testing Osteoarthritis 861202362 M15.0 will refill her lidocaine patches Multiple n odules of lung 434211369 R91.[address] [place] [id number] Ranjeet Houston [facility] [address] [facility] [address],[place] [address] 12/01/2021 13:18:16 12/03/2021 16:23:53 Active or passive immunization 266275381 Z23 patient refuses the shingles vaccine already got a flu shot last monday Adult heal th examination 386879071 Z00.00 BP is excellenth ad recent BW with [facility] from [facility] Ex-smoker 2679969 Z87.89 1 will f/u with CT chest w/o contrast [id number] Ranjeet Houston [facility] Internal [facility] [address] [facility],[place] [address] 07/12/2022 14:49:56 07/12/2022 15:45:14 Iron deficiency anemia 94238364 D50.0 needs recheck levelswill reorder for her (gastro ordered, but I would prefer for it to be sent directly to me and then will fax to Dr. Fatima office) Dyspnea 407502098 R06.02 resolved with blood transfusio n [id number] Ranjeet Houston [facility] Internal [facility] [address] [facility] [address] [address] 12/05/2022 13:22:19 12/05/2022 14:07:34 Adult health examination 572975654 Z00.00 BP is good Anemia 834175014 D50.[address] two checks with iron were normal Screening for malignant neoplasm of cervix 753716294 Z12.4 needs new referral Ex-smoker 3869241 Z87.89 1 will f/u with CT chest w/o contrast [id number] Ranjeet Houston [facility] Internal [facility] [address] [facility] [address] [facility] [place] [address] 12/08/2023 13:22:30 12/08/2023 16:52:09 Active or passive immunization 910676797 Z23 patient refuses the shingles vaccine already got a flu shot last monday Adult heal th examination 570530289 Z00.00 BP is good Depression screening 171 795565 Z13.31 SCREENING NEGATIVE Iron defic iency anemia 07431472 D50.0 needs recheck levelswill reorder for her (gastro ordered, but I would prefer for it to be sent directly to me and then will fax to Dr. Fatima office) [id number] Ranjeet Houston, [facility] Internal [facility] [address] [facility],[place] [address] 12/18/2024 13:25:47 12/18/2024 16:51:07 Depression screening 004142891 Z13.31 SCREENING NEGATIVE History an d physical examination, annual for health maintenance 22767602 Z00.00 9535228 BP is good General ex amination of patient 124222590 Z00.00 201243 120/68 L armhad lab work done with cardiohas to go back Anxiety 65654204 F41.9 adjusted dose for sleep Iron defic iency anemia 35179550 D50.8 [id number] needs recheck levelswill reorder for her (gastro ordered, but I would prefer for it to be sent directly to me and then will fax to Dr. Fatima office) Thyroid di sorder screening 771896972 Z13.29 912982 Health Concerns Section Related Observation LastModified by Organization Detai ls LastModified Time None Recorded Concern Status LastModified by Organization Details LastModified Time None Recorded Advance Directives Directive None Recorded Payers Insurance Date Sequence Insurance Name Policy Number Policy Millan Covered Member ID Millan Member ID Guarantor Name 12/13/2024 2 [place] [id number] Ernestina Reyes [id number] Ernestina Reyes 12/13/2024 1 [place] Ernestina Reyes [id number] Ernestina Reyes 12/13/2024 2 [place] [id number] Ernestina Reyes [id number] Ernestina Reyes 12/13/2024 1 [facility] (POS) [id number] Ernestina Reyes [id number] Ernestina Reyes 12/13/2024 1 [facility] [id number] Ernestina Reyes [id number] Ernestina Reyes 12/15/2024 1 [place] (MEDICARE [place]PLACEMENT PPO) [id number] Ernestina Reyes [id number] Ernestina Reyes Notes Date Note Type Note Provider Name and Address Organization Details Recorded Time 2 text/html Annual WellnessReported by PatientSocial/Behaviora l HistoryFor diet and nutrition, patient reportshealthy diet,discussed vitamin and supplement use,discussed portion control,discussed maintaining calcium balance, anddiscussed diet improvement. For fracture risk, patient reportsno history of fractures,no recent explained fracture,no sudden unexplained fractures, andno previous musculoskeletal injuries. For physical activity, patient reportsexercises on a regular basis,recent increase in physical activity,good physical condition,discussed weightbearing activities, anddiscussed exercise habits. For additional lifestyle factors, patient reportsno tobacco useandstopped drinking alcohol(ex smoker for 30 years).Mental Status:For depression risk, patient reportsnever feels sad, empty, or tearful,no loss of interest in activities,no significant changes in weight,no sleep disturbances or insomnia,no agitation,no loss of energy,no feelings of worthlessness or guilt,no thoughts of suicide,no history of depression, andno history of mood disorders.Functional AbilityFor hearing, patient reportsno loss of hearing. For vision, patient reportsno vision problems. the patient reports that she was with her cardiologistthe patient reports she was cardio-converted after an echohas a f/u 12/17 the patient was having chest pain at night and with rest with palpitations resolved with cardio-conversion ALEXEI OVIEDO [address] [place] [address], [place], [address], [facility] 12/01/2021 14:30:49 3 text/html ROS as noted in the [facility] hospital f/u the patient reports that she [...] with her as well ALEXEI OVIEDO [address] [place], [address], [facility] 07/12/2022 15:43:53 3 text/html Annual WellnessReported by PatientSocial/Behaviora l HistoryFor diet and nutrition, patient reportshealthy diet,discussed vitamin and supplement use,discussed portion control,discussed maintaining calcium balance, anddiscussed diet improvement. For fracture risk, patient reportsno history of fractures,no recent explained fracture,no sudden unexplained fractures, andno previous musculoskeletal injuries. For physical activity, patient reportsexercises on a regular basis,recent increase in physical activity, andgood physical condition. For additional lifestyle factors, patient reportsno tobacco useanddrinks alcohol (mild-moderate).Mental Status:For depression risk, patient reportsnever feels sad, empty, or tearful,no loss of interest in activities,no significant changes in weight,no sleep disturbances or insomnia,no agitation,no loss of energy,no feelings of worthlessness or guilt,no thoughts of suicide,no history of depression, andno history of mood disorders.Functional AbilityFor hearing, patient reportsno loss of hearing. For vision, patient reportsno vision problems. the patient is scheduled for an ablation [...] the hospitalalso [facility] gall[facility] monitor ALEXEI OVIEDO [address] [facility], [place], [address], [facility] 12/05/2022 14:03:11 4 text/html Annual WellnessReported by PatientSocial/Behaviora l HistoryFor diet and nutrition, patient reportshealthy diet,discussed vitamin and supplement use,discussed portion control,discussed maintaining calcium balance, anddiscussed diet improvement. For fracture risk, patient reportsno history of fractures,no recent explained fracture,no sudden unexplained fractures, andno previous musculoskeletal injuries. For physical activity, patient reportsexercises on a regular basis,recent increase in physical activity, andgood physical condition. For additional lifestyle factors, patient reportsno tobacco use,no alcohol intake, andstopped drinking alcohol.Mental Status:For depression risk, patient reportsnever feels sad, empty, or tearful,no loss of interest in activities,no significant changes in weight,no sleep disturbances or insomnia,no agitation,no loss of energy,no feelings of worthlessness or guilt,no thoughts of suicide,no history of depression, andno history of mood disorders.Functional AbilityFor hearing, patient reportsno loss of hearing. For vision, patient reportsno vision problems.ROS as noted in the HPI has AAA, only 2 cm, will monitor ithas mild carotid stenosis, will monitor it now has COPDa. fib is stable recently saw cardioBP is stable wanted to talk about ozempic etcdoes have IFG, will get updated A1c to see if she would qualifyneed to check her iron levels again ALEXEI OVIEDO [address] [place] [address], [place], [address], [facility] 12/08/2023 13:55:39 5 text/html Medicare Annual Wellness VisitReported by PatientSocial/Behaviora l HistoryFor diet and nutrition, patient reportshealthy diet,discussed vitamin and supplement use,discussed portion control,discussed maintaining calcium balance, anddiscussed diet improvement. For fracture risk, patient reportsno history of fractures,no recent explained fracture,no sudden unexplained fractures, andno previous musculoskeletal injuries. For physical activity, patient reportsexercises on a regular basis,recent increase in physical activity,good physical condition,discussed weightbearing activities, anddiscussed exercise habits.Mental Status:For depression risk, patient reportsnever feels sad, empty, or tearful,no loss of interest in activities,no significant changes in weight,no sleep disturbances or insomnia,no agitation,no loss of energy,no feelings of worthlessness or guilt,no thoughts of suicide,no history of depression, andno history of mood disorders. For orientation, patient reportsno disorientation to time,no disorientation to date, andno disorientation to place. For concentration and memory, patient reportsno decreased concentrating ability,no memory lapses or loss, anddoes not forget words. For speech/motor difficulties, patient reportsno speech difficulties,no difficulty expressing formulated concepts,no difficulty with fine manipulative tasks,no difficulty writing/copying,no slowed reaction time, anddoes not knock things over when trying to pick them up.Functional AbilityFor hearing, patient reportsno loss of hearing. For vision, patient reportsno vision problems. For activities of daily living, patient reportsable to bathe with limited or no assistance,able to contol urination and bowels,able to dress with limited or no assistance,able to feed self with limited or no assistance,able to get out of chair or bed with limited or no assistance,able to groom with limited or no assistance, andable to toilet with limited or no assistance. For instrumental activities of daily living, patient reportsable to do house work with limited or no assistance,able to grocery shop with limited or no assistance,able to manage medications with limited or no assistance,able to manage money with limited or no assistance,able to prepare meals with limited or no assistance, andable to use the phone with limited or no assistance. For falls risk assessment, patient reportsno frequent falls while walking,no fall in the past year,no fall since last visit, andno dizziness/vertigo. For home safety, patient reportsno unsafe felisa hazzards,no unsafe stairs,no unsafe gas appliances,working smoke/co detectors,wears protective head gear for biking/high velocity,use of seatbelts,no vision or hearing loss while driving,no fire arms,has hand bars in the bathroom/shower, andgood lighting in the home.ROS as noted in the HPI ALEXEI OVIEDO [address] [facility], [place], [address], [facility] 12/18/2024 14:11:51 OBGyn Episode No OBEpisode recorded.
--- OUTSIDE RECORDS SUMMARY | 2024-12-25 16:26 | XMS_ITS | Encounter Summary ---
Author Organization [facility] Address [address] [address] Phone Care Team Providers Care [employer] Name Role Phone Rosemarie Ranjeet Dc DO Primary Care Provider [phone] Encounter Details Date Type Department Care Team (Late st Contact Info) Description 10/31/2023 Transcribe Orders Virtual Department [address] [place] [address] Ranjeet Houston DO [address] [place] [address] Abdominal aortic aneurysm (AAA) without rupture, unspecified [...] Primary documented in this encounter Care Teams [employer] Relationship Specialty Start Date End Date Ranjeet Houston DO [email or web address] PCP - General Internal Medicine 06/24/20 documented as of this encounter Additional Source Comments The information contained in this document represents components of the legal health record. It is not the complete legal health record.[facility]
--- OUTSIDE RECORDS SUMMARY | 2024-12-25 16:26 | XMS_ITS | Clinical Summary ---
Author Organization [employer] Address [address] [address] Phone Care Team Providers Care Communications Coordinator Name Role Phone Ranjeet Houston DO Primary Care Provider [phone] Allergies Active Allergy Reactions Criticality Noted Date [...] Take 50 mg by mouth daily. Active isosorbide mononitrate (IMDUR) 30 mg 24 hr tablet Take 2 tablets (60 mg total) by mouth 1 (one) time each day. Do not crush or chew. 180 tablet 3 05/14/19 25 Active albuterol HFA (PROAIR HFA ; PROVENTIL HFA ; VENTOLIN HFA) 90 mcg/actuation inhaler Inhale 2 puffs by mouth every 6 (six) hours if needed for wheezing. 1 each 07/25/19 25 Active amLODIPine (NORVASC) 10 mg tablet Take 1 tablet (10 mg total) by mouth 1 (one) time each day. 90 tablet 1 10/23/19 25 Active Xarelto 20 mg tablet TAKE 1 TABLET BY MOUTH EVERY DAY 90 tablet 1 10/29/19 25 Active dronedarone (MULTAQ) 400 mg tablet Take 1 tablet (400 mg total) by mouth 2 (two) times a day with meals. 60 tablet 11 10/29/19 25 Active valACYclovir (VALTREX) 500 mg tablet Take 1 tablet (500 mg total) by mouth 1 (one) time each day. for 10 days 12/01/19 25 Active rosuvastatin (CRESTOR) 10 mg tablet TAKE 1 TABLET BY MOUTH EVERY DAY 90 tablet 1 12/12/19 25 Active rosuvastatin (CRESTOR) 10 mg tablet TAKE 1 TABLET BY MOUTH EVERY DAY 90 tablet 1 06/14/19 25 025 Discontinued metoprolol succinate (TOPROL-XL) 25 mg 24 hr tabletIndication s:Paroxysmal atrial fibrillation ([facility]/HCC V24, CMS/HCC V28) Take 2 tablets (50 mg total) by mouth 1 (one) time each day. Do not crush or chew. 180 tablet 1 10/29/19 25 025 Discontinued(Do se adjustment) Active Problems Problem Noted Date Diagnosed Date Secondary hypercoagulable state (CMS/HCC V24) Assessment & Plan (08/22/2024 6:32 PM EDT): As above, the patient will continue with Xarelto for cardioembolic prophylaxis; we discussed the risks and benefits of continuing with this and she wishes to continue with current plan, especially in light of planned cardioversion. She is on the appropriate dose of Xarelto 20 mg daily. She is aware to seek urgent medical attention for any uncontrolled bleeding, signs or symptoms of GI or other internal bleeding, or for any head injury. Orders: Complete blood count; Future Infrarenal abdominal aortic aneurysm (AAA) without rupture (CMS/HCC V24) 01/30/2024 Assessment & Plan (03/25/2024 1:07 PM EST): The patient was noted to have left saccular aneurysm of the distal abdominal aorta that was measured at 2.5 cm on abdominal aorta duplex from October 2023. The patient completed a follow-up abdominal pelvic CT scan at [facility] and has also been under evaluation by Dr. Palmer who is a vascular surgeon at [facility]. The patient will continue to follow with the vascular surgery service at [facility] regarding the monitoring and management of her infrarenal abdominal aortic aneurysm. Assessment & Plan (02/28/2024 3:47 PM EST): The patient was noted to have left saccular aneurysm of the distal abdominal aorta that was measured at 2.5 cm on abdominal aorta duplex from October 2023. The patient completed a follow-up abdominal pelvic CT scan at [facility] and has also been under evaluation by Dr. Palmer who is a vascular surgeon at [facility]. The patient will continue to follow with the vascular surgery service at [facility] regarding the monitoring and management of her infrarenal abdominal aortic aneurysm. Assessment & Plan (01/30/2024 9:01 AM EST): The patient was noted to have an abdominal aortic aneurysm that was measured at 2.5 cm on abdominal aorta duplex from October 2023. The patient was referred for an abdominal pelvic CTA which was done at [facility]. The study confirmed the presence of an abdominal aortic aneurysm. The patient will be evaluated by the vascular surgery service at [facility]. She is scheduled to see Dr. Souza from the [facility] vascular surgery service in February 2024. HLD (hyperlipidemia) 08/22/2023 Overview (01/09/2024): Last Assessment & Plan: The patient has a history of hyperlipidemia. The patient is currently on rosuvastatin 10 mg orally daily. We will order a new lipid panel to evaluate the patient's current lipid control and determine if any adjustment are needed in the lipid lowering therapy. Assessment & Plan (10/28/2024 1:54 PM EDT): The patient has a history of hyperlipidemia. She also has a history of CAD. The patient is currently on rosuvastatin 10 mg orally daily. Last lipid panel showed an LDL of 72. We discussed the fact that her LDL target is 70 or below. The patient does not want to change the dose of her rosuvastatin at this point. She would prefer to make dietary adjustments in order to optimize her cholesterol level. I think that this is reasonable. Will plan for a follow-up lipid panel in 3 months. Assessment & Plan (08/22/2024 6:32 PM EDT): The patient's most recent lipid panel was completed on 02/28/2024 showing an LDL of 69 which is at goal of less than 70 for this patient has a history of nonobstructive coronary artery disease; continue rosuvastatin. Assessment & Plan (03/25/2024 1:07 PM EST): [...] continue her current therapy. Assessment & Plan (12/10/2024 2:38 PM EDT): Stable coronary disease with no active angina. Continue anticoagulation, rosuvastatin and beta-lisa through Multaq. Assessment & Plan (10/28/2024 1:54 PM EDT): The patient has a history of nonobstructive coronary artery disease. Currently, the patient denies any chest pain at rest or with exertion. The patient continues on secondary preventive therapy for CAD, including: Imdur, amlodipine, statin and beta lisa. The patient is also on antithrombotic therapy with Xarelto. Will continue current therapy. Assessment & Plan (08/22/2024 6:32 PM EDT): The patient has a history of nonobstructive coronary artery disease; her chest discomfort described today is not exertional in nature and has been intermittent, unpredictable, and likely related however, we did discuss the to her recurrent atrial fibrillation. At this time, there does not appear to be any indication for a repeat ischemic workup. However, we did discuss demand ischemia should she develop atrial fibrillation and she verbalizes understanding of this and when to seek urgent medical attention. She will continue with cardioprotective medical therapies including beta-blockade, isosorbide, and rosuvastatin; she is not on daily aspirin therapy given concurrent Xarelto use. We discussed cardiac risk reduction through lifestyle modifications with healthy diet, and weight management. The patient was advised to seek emergent medical attention by calling 911 if they were to develop severe dyspnea, chest pain that did not resolve with rest, or if they were to faint. Assessment & Plan (03/25/2024 1:07 PM EST): [...] Xarelto 20 mg orally daily given her [id number] score of 4 (age, gender, CAD, hypertension). No episodes of abnormal bleeding have been noted. Will continue her current therapy. Assessment & Plan (12/10/2024 2:38 PM EDT): Maintaining sinus rhythm on Multaq with a resting sinus bradycardia but she feels great and wants to hold off on the ablation. I had a discussion with her regarding the better long-term outcomes with ablation but for the time being we will continue Multaq and when she starts to breakthrough we will plan on moving ahead with a repeat ablation then. She will continue with anticoagulation and Multaq in the interim. I encouraged her to follow through with the weight loss clinic as this will clearly improve her chances of maintaining sinus rhythm. Assessment & Plan (10/28/2024 1:54 PM EDT): The patient has a history of paroxysmal A-fib. She underwent a cardioversion in November 2021 followed by an ablation by Dr. Monterroso in December 2022. Then, she underwent another cardioversion in February 2024 and another cardioversion in August 2024. On today's visit, she was noted to be in a normal sinus rhythm. I think the patient would benefit from another ablation. Will refer the patient for a reevaluation with Dr. Monterroso. In the meantime, we will continue her beta- lisa therapy with metoprolol anticoagulation therapy with Eliquis. Orders: ECG 12 lead Hepatic function panel; Future Assessment & Plan (08/22/2024 6:38 PM EDT): The patient has a history of paroxysmal atrial fibrillation status post cardioversion in November 2021, a ablation by Dr. Monterroso in December 2022, and repeat cardioversion in February 2024. On 08/18/2024, she noted symptoms of palpitations and intermittent chest discomfort prompting her to use her [employer] mobile which noted return of atrial fibrillation now confirmed on ECG in office today; rate appears to be well- controlled on current dose of metoprolol 50 mg daily and we will not make any changes to this today. We discussed a repeat cardioversion; there does not currently appear to be an emergent nature for this as she appears to be tolerating the atrial fibrillation rather well; as such, this will be done as soon as possible on an outpatient basis. In the interim, we reviewed indications for which she should seek emergent medical attention such as worsening shortness of breath or chest discomfort, lightheadedness or dizziness, syncope or presyncope. She will continue to monitor heart rate and blood pressure at home and is aware to urgent medical attention for a sustained heart rate at or above 120 bpm. She has not missed any doses of Xarelto within the last 4 weeks and is verbalizes understanding that she should continue Xarelto uninterrupted, notifying the office immediately for any missed doses as this will impact the timing of her cardioversion. We will update labs as well; the patient's mother has a history of thyroid dysfunction and while she herself has had normal TSH levels in the past, we will update this along with other labs as below. Of note, we did discuss the potential addition of an antiarrhythmic to help improve the likelihood that she will maintain sinus rhythm status post cardioversion; does not want to start any medications that are not absolutely necessary at this time. As such, we will continue to pursue the plan of cardioversion and she will follow- up as needed with electrophysiology postprocedure and at the discretion of her primary cardiology team. Given that she does think she may be a snorer, we disucssed the possibility that she may have untreated sleep apnea which may be contributing to her atrial fibrillation. We discussed the long-term implications of untreated sleep apnea as a pertains to her cardiovascular health. She verbalizes understanding of this but continues to decline a sleep study; I have asked her to strongly reconsider this which she states she will do and notify our office if she changes her mind. Orders: ECG 12 lead Thyroid stimulating hormone with reflex to free t4 and free t3; Future Magnesium; Future Complete blood count; Future Comprehensive metabolic panel; Future Cardioversion external; Future Assessment & Plan (03/25/2024 1:07 PM EST): [...] therapy with Eliquis due to her elevated [id number] score. Orders: ECG 12 lead metoprolol succinate [...] her anticoagulation therapy with Xarelto given her [id number] score of 4 and her upcoming cardioversion. [...] other hand, the patient has an elevated [id number] score of 4 (age, gender, CAD, hypertension) [...] her carotid artery stenosis. Assessment & Plan (10/28/2024 1:54 PM EDT): The patient has a history of carotid artery stenosis. Last carotid artery duplex from October 2023 showed mild ICA stenosis bilaterally. The patient should undergo a follow-up carotid artery duplex for reevaluation. Study ordered today. Orders: Vascular US duplex carotid bilateral; Future Assessment & Plan (03/25/2024 1:07 PM EST): [...] current antihypertensive medication regimen. Assessment & Plan (12/10/2024 2:39 PM EDT): Blood pressure well-controlled today on current medicines and diet. Continue current management Assessment & Plan (10/28/2024 1:54 PM EDT): The patient has a history of arterial hypertension. The patient's blood pressure today was noted to be well controlled. We'll continue the current antihypertensive medication regimen. Assessment & Plan (08/22/2024 6:32 PM EDT): Blood pressure is favorable on current antihypertensive regimen; continue lisinopril, metoprolol, and isosorbide. We are updating a metabolic panel as above. Orders: Magnesium; Future Complete blood count; Future Assessment & Plan (03/25/2024 1:07 PM EST): [...] of obtaining an appointment with her preferred bioinformatics technician. I encouraged her to reach out if [...] Encounters Date Type Department Care Team Description 12/10/2024 2:00 PM EDT Office Visit [facility] Cardiology [facility] [address] [place] [address] John Monterroso MD Paroxysmal atrial fibrillation (CMS/HCC V24, CMS/HCC V28) (Primary Dx); Coronary artery disease involving [place] coronary artery of [place] heart without angina pectoris; Primary hypertension 12/06/2024 Telephone [facility] Cardiology [facility] [address] [place] [address] Ebony Johnson NP 10/30/2024 Telephone [facility] Cardiology [facility] [address] [place] [address] John Monterroso MD 10/28/2024 Telephone [facility] Cardiology [facility] [address] [place] [phone] John Monterroso MD 10/28/2024 Telephone [facility] Cardiology [facility] [address] [place] [address] Jose Antonio Lima MD 10/23/2024 1:30 PM EDT Office Visit [facility] [address] [place] [address] [place] [address] Jose Antonio Lima MD Paroxysmal atrial fibrillation (CMS/HCC V24, CMS/HCC V28) (Primary Dx); Coronary artery disease involving [place] coronary artery of [place] heart without angina pectoris; Primary hypertension; Bilateral carotid artery stenosis; Pure hypercholesterolemia; Infrarenal abdominal aortic aneurysm (AAA) without rupture (CMS/HCC V24) from Last 3 Months Immunizations Immunization Administration Dates Next Due Moderna SARS-CoV-2 COVID-19, [...] Reading Time Taken Comments Blood Pressure 110/60 12/10/2024 2:02 PM EDT Pulse 53 12/10/2024 2:02 PM EDT Temperature 36 C (96.8 F) 08/30/2024 11:44 AM EDT Respiratory Rate 15 08/30/2024 1:15 PM EDT Oxygen Saturation 95% 12/10/2024 2:02 PM EDT Inhaled Oxygen Concentration - - Weight 110 kg (242 lb) 12/10/2024 2:02 PM EDT Height 167.6 cm (5' 6 ) 12/10/2024 2:02 PM EDT Body Mass Index 39.06 12/10/2024 2:02 PM EDT Plan of Treatment Upcoming Encounters Date Type Department Care Team (Late st Contact Info) Description 01/08/2025 1:30 PM EST Ancillary Procedure [facility] Cardiology [facility] [address] [place] [phone] 05/05/2025 1:10 PM EDT Office Visit [facility] [address] [place] [phone] Ebony Johnson NP [address] [place] [address] [place] [address] Health Maintenance Due Date Last Done Comments Breast Cancer Screening 1955 Colorectal Cancer Screening: Colonoscopy 1955 DTaP,Tdap,and Td Vaccines (1 - Tdap) 1973 Pneumococcal Vaccine: 50+ Years (1 of 1 - PCV) 2004 Zoster Vaccines (1 of 2) 2004 Falls Risk Assessment 01/23/2022 Hepatitis C Screening 01/23/2022 Medicare Annual Wellness Visit 01/23/2022 Osteoporosis Screening (Bone Density Screening) 01/23/2022 Social Influencers of Health Screening 01/23/2022 Depression Screening 02/14/2024 COVID-19 Vaccine ( season) 2024 12/06/2021, 12/15/2020, 05/08/2020, Additional history exists Hypertension/CHF/CAD Annual BMP Blood Test 10/16/2025 10/16/2024, 08/22/2024, 02/28/2024 RSV Immunization Adult Patients (1 - 1-dose 75+ series) 2029 Cholesterol Screening (Lipid Panel) 10/16/2029 10/16/2024, 02/28/2024 Influenza Vaccine Completed 12/04/2024, , 11/05/2022, Additional history exists HIB Vaccines Aged Out No longer eligi [...] Date/Time Associated Diagnosis Comments ECG 12-LEAD Routine 12/10/2024 2:39 PM EDT Paroxysmal atrial fibrillation (CMS/HCC V24, CMS/HCC V28) ECG 12-LEAD Routine 10/23/2024 1:15 PM EDT Paroxysmal atrial fibrillation (CMS/HCC V24, CMS/HCC V28) LIPID PANEL Routine 10/16/2024 11:36 AM EDT Coronary artery disease involving [place] coronary artery of [place] heart without angina pectoris COMPREHENSIVE METABOLIC PANEL Routine 10/16/2024 11:36 AM EDT Coronary artery disease involving [place] coronary artery of [place] heart without angina pectoris from Last 3 Months Results * ECG 12 lead (12/10/2024 2:39 PM EDT) Only the most recent of2 resultswithin the time period is included. Ventricular Rate ECG 53 BPM GEMUSE Atrial Rate 53 BPM GEMUSE P-R Interval 162 ms GEMUSE QRS Duration 86 ms GEMUSE Q-T Interval 432 ms GEMUSE QTc 405 ms GEMUSE P Wave [place] 78 degrees GEMUSE R [place] 73 degrees GEMUSE T [place] 70 degrees GEMUSE ECG Interpretation Sinus bradycardia Otherwise normal ECG When compared with ECG of 23-OCT-2024 13:15, Premature atrial complexes are no longer Present GEMUSE 12/10/2024 2:11 PM EDT Narrative GEMUSE - 12/10/2024 2:39 PM EDT Sinus bradycardia 53 bpm. Otherwise normal ECG us John Monterroso MD ECG ORDERABLES Final Result Performing Organization Address City/[facility]/ZIP Co de Phone Number GEMUSE * Lipid panel (10/16/2024 11:36 AM EDT) Cholesterol Total 132 100 - 199 mg/dL [facility] Triglycerides 97 0 - 149 mg/dL [facility] HDL Cholesterol 42 >39 mg/dL [facility] 1 VLDL Cholesterol Calculated 18 5 - 40 mg/dL [facility] LDL Chol Calc (NIH) 72 0 - 99 mg/dL [facility] 1 Blood Venous blood specimen / Unknown 10/16/2024 11:36 AM EDT 10/16/2024 Narrative [facility] 1 - 10/17/2024 2:06 AM EDT Performed at: [facility] [id number] [employer] Account Manager: Fernanda Castellanos MD, Phone: [phone] us Jose Antonio Lima MD LAB BLOOD ORDERABLES F inal Result [facility] 1 * (ABNORMAL) Comprehensive metabolic panel (10/16/2024 11:36 AM EDT) Glucose 111(H) 70 - 99 mg/dL [facility] 1 Blood Urea Nitrogen (BUN) 17 8 - 27 mg/dL [facility] Creatinine 0.74 0.57 - 1.00 mg/dL [facility] 1 eGFR 87 >59 mL/min/1. 73 [facility] 1 BUN/Creatinine Ratio 23 12 - 28 [facility] 1 Sodium 142 134 - 144 mmol/L [facility] 1 Potassium 4.7 3.5 - 5.2 mmol/L [facility] 1 Chloride 105 96 - 106 mmol/L [facility] 1 Carbon Dioxide 21 20 - 29 mmol/L [facility] 1 Calcium 9.3 8.7 - 10.3 mg/dL [facility] 1 Protein Total 6.6 6.0 - 8.5 g/dL [facility] 1 Albumin 4.2 3.9 - 4.9 g/dL [facility] 1 Globulin Total 2.4 1.5 - 4.5 g/dL [facility] 1 Bilirubin Total 0.4 0.0 - 1.2 mg/dL [facility] 1 Alkaline Phosphatase 141(H) 44 - 121 IU/L [facility] 1 Comment: Effective October 28, 2024 Alkaline Phosphatase reference interval will be changing to: Age Male Female 0 - 5 days 47 - 127 47 - 127 6 - 10 days 29 - 242 29 - 242 11 - 20 days 109 - 357 109 - 357 21 - 30 days 94 - 494 94 - 494 1 - 2 months 149 - 539 149 - 539 3 - 6 months 131 - 452 131 - 452 7 - 11 months 117 - 401 117 - 401 12 months - 6 years 158 - 369 158 - 369 7 - 12 years 150 - 409 150 - 409 13 years 156 - 435 78 - 227 14 years 114 - 375 64 - 161 15 years 88 - 279 56 - 134 16 years 74 - 207 51 - 121 17 years 63 - 161 47 - 113 18 - 20 years 51 - 125 42 - 106 21 - 50 years 47 - 123 41 - 116 51 - 80 years 49 - 135 51 - 125 >80 years 48 - 129 48 - 129 Aspartate aminotransferase (AST) 14 0 - 40 IU/L [facility] 1 Alanine Aminotransferase (ALT) 13 0 - 32 IU/L [facility] 1 Blood Venous blood specimen / Unknown 10/16/2024 11:36 AM EDT 10/16/2024 Narrative [facility] 1 - 10/17/2024 2:06 AM EDT Performed at: 01 - [facility] [address] [id number] [employer] Account Manager: Fernanda Castellanos MD, Phone: [phone] us Jose Antonio Lima MD LAB BLOOD ORDERABLES F inal Result [facility] 1 from Last 3 Months Insurance [employer] - [place] MEDICARE ADVANTAGE Care Teams Communications Coordinator Relationship Specialty Start Date End Date Ranjeet Houston DO [address] [address] [place], [place] PCP - General 01/31/13
--- OUTSIDE RECORDS SUMMARY | 2024-12-25 16:26 | XMS_ITS | Encounter Summary ---
Author Organization [facility] Address [address] [place] [id number] Phone Care Team Providers Care Insurance Counsel Name Role Phone Christinayosef Ranjeet Dc DO Primary Care Provider [phone] Encounter Details Date Type Department Care Team (Latest Contact Info) Description 05/23/2023 Transcribe Orders Virtual Department [address] [place] [address] Marah Gordillo PA [address] [facility] [place] [address] Cough, unspecified type (Primary Dx) Social History [...] Primary documented in this encounter Care Teams Insurance Counsel Relationship Specialty Start Date End Date Ranjeet Houston DO PCP - General Internal Medicine 06/24/20 documented as of this encounter Additional Source Comments The information contained in this document represents components of the legal health record. It is not the complete legal health record.[facility]
--- OUTSIDE RECORDS SUMMARY | 2024-12-25 16:26 | XMS_ITS | Patient Health Record ---
Author Organization [facility] Address [address] [place] [address] Care Team Providers Care Detail Drafter Name Role Phone Ranjeet Houston MD Primary Care Provider Gaviota Fishman Unavailable [phone] Allergies Allergen (clinical drug ingredient) Drug/Non Drug Allergy documented on EMR Reaction Allergy Type Onset Date Status acetaminophen / oxycodone Percocet itchy Drug Allergy Active Latex Latex rash Allergy Active Reason For Referral No Information Medications Medication SIG (Take, Route, Frequency, Duration) Notes Start Date End Date Status Sertraline HCl 50 MG 1 tablet Orally morning Active Multaq 400 MG Oral; Duration: 30 Days 1Morning 1 evening Active hydroCHLOROthiazide 12.5 MG 1 capsule in the morning Orally Once a day; Duration: 30 day(s) morning Not-Taking Lovastatin 20 MG 1 tablet with the evening meal Orally Not-Taking Lisinopril 40 MG 1 tablet Orally Active Aleve Unknown Omeprazole 20 MG 1 capsule 30 minutes before morning meal Orally Active Walking Boot/Pneumatic As directed Wear Daily; Duration: Until further notice 01/31/2017 Unknown amLODIPine Besylate 10 MG 1 tablet Orally morning Active Melatonin 3 MG 1 tablet at bedtime as needed Orally Once a day; Duration: 30 day(s) Active Norvasc 5 MG Orally Unknown Xarelto 20 MG 1 tablet with food Orally Once a day; Duration: 30 day(s) Active Zoloft 50 MG Orally Once a day Unknown B12 Folate Active Vitamin D 2000 UNIT Orally Unknown LORazepam 1 MG Orally Activ e Aspirin Unknown Immunizations Vaccine Route Administration Date Status Comme nts Influenza Unknown 11/16/2023 Administered Influenza Unknown 11/15/2024 Administered Social History Tobacco Use: Social History Observation Description Date Details (start date - stop date) Never Smoker NA - NA Tobacco use other than smoking: Question Answer Notes Are you an other tobacco user? No Tobacco Control (Standard) Question Answer Notes Tobacco use: Nonsmoker Additional Findings: Tobacco non-user Current no nsmoker AUDIT-C (Standard) Question Answer Notes Did you have a drink containing alcohol in the p ast year? No Points 0 Interpretation Negative Problems Problem Type SNOMED Code ICD Code Onset Dates Problem Status W/U Status Risk Notes Problem Localized, primary osteoarthritis of the ankle and/or foot (015970018) Primary osteoarthriti s, left ankle and foot (M19.072) Active confirmed Problem Acquired hammer toe of right foot (4295426158595031) Other hammer toe(s) (acquired), right foot (M20.41) Active confirmed Problem Acquired hammer toe of left foot (2225371970041744) Other hammer toe(s) (acquired), left foot (M20.42) Active confirmed Problem Localized, primary osteoarthritis of the ankle and/or foot (886952338) Arthritis of joint of lesser toe, right (M19.071) Active confirmed Vital Signs Blood pressure diastolic 65 mm Hg 11/27/2024 Height 5 ft 6 in in 11/27/2024 Blood pressure systolic 115 mm Hg 11/27/2024 Weight 232 lbs 11/27/2024 BMI 37.44 kg/m2 11/27/2024 Encounters Encounter Location Date Provider Diagnosis [facility] [address] [place] [address] 11/27/2024 Gaviota Molina Pain in right toe(s) M79.674 ; Other hammer toe(s) (acquired), right foot M20.41 ; Arthritis of joint of lesser toe, right M19.071 ; Subluxation of metatarsophalangeal joint of toe, initial encounter S93.149A and Metatarsalgia, right foot M77.41 Assessments Encounter Date Diagnosis (ICD Code) Assessment Notes Treatment Notes Treatment Clinical Notes Section Notes 11/27/2024 Pain in right toe(s) (ICD-10 - M79.674) 11/27/2024 Other hammer toe(s) (acquired), right foot (ICD-10 - M20.41) 11/27/2024 Arthritis of joint o f lesser toe, right (ICD-10 - M19.071) 11/27/2024 Subluxation of metatarsophalangeal joint of toe, initial encounter (ICD-10 - S93.149A) 11/27/2024 Metatarsalgia, right foot (ICD-10 - M77.41) Plan Of Treatment Pending Test Test Name Order Date X ray : Ankle, left 3V 06/16/2022 X ray : Foot, left 3V 01/31/2017 X ray : Foot, left 3V 06/16/2022 X ray : Foot, right 3V 06/16/2022 X ray : Foot, right 3V 11/27/2024 Next Appt Details Provider Name:Gaviota Kahlil hoyt, 01/15/2025 01:30:00 PM, [address] [place] [address], [phone], Insurance Providers Payer Name Payer Address Payer Phone Subscriber Number Group Number Insured Name Patient Relationship to Insured Coverage Start Date Coverage End Date [employer] 65 Medicare Preferred [address] [place] [address] [id number] Ernestina Reyes Self - patient is [...]
[2024-12-25 18:03] LABS: MANUAL DIFF FLAG NO
[2024-12-25 18:32] LABS: Alanine Aminotransferase 17 U/L (0-31); Albumin Level 4.0 g/dL (3.5-5.0); Alkaline Phosphatase 118 U/L (39-117); Anion Gap 11 (12-20); Aspartate Amino Transferase 18 U/L (5-31); Blood Urea Nitrogen 15 mg/dL (9-16); Calcium 8.9 mg/dL (8.4-10.2); Carbon Dioxide 25 mmol/L (22-29); Chloride 110 mmol/L (96-108); Estimated Glomerular Filt Rate > 60; Iron 53 mcg/dL (30-160); Percent Iron Saturation 21 % (15-50); Potassium 3.9 mmol/L (3.3-5.1); Sodium 142 mmol/L (135-145); Total Iron Binding Capacity 250 mcg/dL (228-428); Total Protein 6.5 g/dL (6.5-8.0); Unsaturated Iron Binding 197 ug/dL
[2024-12-25 18:46] LABS: Ferritin 47 ng/mL (10-250)
[2024-12-25 19:10] LABS: Hematocrit 38.7 % (37.0-47.0); Hemoglobin 12.3 g/dl (12.0-16.0); Imm Gran Abs Auto 0.04 X10*3/uL (0.00-0.03); Imm Gran Pct Auto 0.5 % (0.0-0.4); Lymphocytes Absolute Auto 1.8 X10*3/uL (1.2-4.9); Mean Corpuscular HGB Conc 31.8 g/dl (31.0-35.0); Mean Corpuscular Hemoglobin 30.1 pg (27.0-33.0); Mean Corpuscular Volume 94.6 fL (80.0-98.0); NRBC Abs Auto 0.000 X10*3/uL (0.0-0.012); NRBC Pct Auto 0.0 /100WBC (0.0-0.2); Platelet Count 241 X10*3/uL (160-400); Red Blood Count 4.09 X10*6/uL (4.20-5.50); White Blood Count 8.8 X10*3/uL (4.8-10.8)
[2024-12-26 05:32] LABS: Hemoglobin A1C 73.1493 umol/L; Total Hemoglobin (HGBA1C) 2156.8601 umol/L
== END 2024-12-25 13:34 | disposition home or self-care (01) ==
LOC: HO.MANLDS 13:33
PROVIDERS: Visit Provider Physician Assistant
DX: I10 Essential (primary) hypertension (principal); R73.01 Impaired fasting glucose; D50.8 Other iron deficiency anemias; Z13.29 Encounter for screening for other suspected endocrine disorder
CPT/HCPCS: 36415; 80053; 82728; 83036; 83540; 84443; 85025